=== PATIENT | female | born 1940 | race Caucasian/White ===

== ENCOUNTER 2017-05-07 10:06 | Emergency (ER) | payer MEDICARE, OTHER ==
--- NOTE | 2017-05-07 10:41 | ER Document Report ---
ED Fall - General Chief Complaint: Fall Injury Stated Complaint: FALL,LEFT HIP PAIN Time Seen by Provider: 05/07/17 10:21 Mode of Arrival: Wheelchair Information source: Patient, Relative Notes: 77-year-old female presents to ED for complaint of left hip and leg pain. She states she fell on April 23, 2017 when she was attempting to get into the car she said she was in [place] and has been ambulated for 9 days since she came home is just having a very difficult time walking. Her daughter is a [employer]ULATORY [employer]IST here and she states when she came home from out of town the mother was holding onto everything to try to walk because of the pain. TRAVEL OUTSIDE OF THE [place] IN LAST 30 DAYS: No - HPI Occurred: Other - April 23, 2017 Where: Outdoors Context: Tripped Associated symptoms: None Location of injury/pain: Lower extremity Quality of pain: Sharp Severity: Moderate Pain Level: 2 - Related data Allergies/Adverse Reactions: No Known Allergies Allergy (Verified 05/07/17 10:07) Past Medical History - General Information source: Patient - Social History Smoking Status: Former Smoker Cigarette use (# per day): No Chew tobacco use (# tins/day): No Smoking Education Provided: No Frequency of alcohol use: None Drug Abuse: None Occupation: Retired Lives with: Alone Family History: Reviewed & Not Pertinent Patient has suicidal ideation: No Patient has homicidal ideation: No - Past Medical History Cardiac Medical History: Reports: Hx Congestive Heart Failure, Hx Hypercholesterolemia, Hx Hypertension, Other - Defibrillator ejection fraction of 17 Pulmonary Medical History: Reports: None EENT Medical History: Reports: Other - 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 Neurological Medical History: Reports: Hx Cerebrovascular Accident - Left eye Endocrine Medical History: Reports: Hx Diabetes Mellitus Type 1 Renal/ Medical History: Reports: None Malignancy Medical History: Reports: Hx Breast Cancer GI Medical History: Reports: None Musculoskeltal Medical History: Reports Hx Gout, Reports Other - Osteoporosis Skin Medical History: Reports None Psychiatric Medical History: Reports: Hx Depression Traumatic Medical History: Reports: None Infectious Medical History: Reports: None Past Surgical History: Reports: Hx Breast Surgery - Mastectomy, Hx Tubal Ligation - Immunizations Hx Pneumococcal Vaccination: 04/04/13 Review of Systems - Review of Systems Constitutional: No symptoms reported EENT: No symptoms reported Cardiovascular: No symptoms reported Respiratory: No symptoms reported Gastrointestinal: No symptoms reported Genitourinary: No symptoms reported Female Genitourinary: No symptoms reported Musculoskeletal: Other - Left hip and thigh Skin: No symptoms reported Hematologic/Lymphatic: No symptoms reported Neurological/Psychological: No symptoms reported -: Yes All other systems reviewed and negative Physical Exam - Vital signs Vitals: Temp Pulse Resp BP Pulse Ox 97.5 F 74 18 95/70 L 100 05/07/17 10:14 05/07/17 10:14 05/07/17 10:14 05/07/17 10:14 05/07/17 10:14 Interpretation: Normal - General General appearance: Appears well, Alert - HEENT Head: Normocephalic, Atraumatic Eyes: Normal Pupils: PERRL - Respiratory Respiratory status: No respiratory distress Chest status: Nontender Breath sounds: Normal Chest palpation: Normal - Cardiovascular Rhythm: Regular Heart sounds: Normal auscultation Murmur: No - Abdominal Inspection: Normal Distension: No distension Bowel sounds: Normal Tenderness: Nontender Organomegaly: No organomegaly - Back Back: Normal, Nontender - Extremities General upper extremity: Normal inspection, Nontender, Normal color, Normal ROM , Normal temperature General lower extremity: Normal inspection, Normal temperature. No: Jessie's sign Hip: Tender, Ecchymosis, Pain with ROM, Unable to bear weight. No: Abrasion, Deformity, Dislocation, Instability, Laceration - Neurological Neuro grossly intact: Yes Cognition: Normal Orientation: AAOx4 [place] Coma Scale Eye Opening: Spontaneous Mechelle Coma Scale Verbal: Oriented Mechelle Coma Scale Motor: Obeys Commands Dundas Coma Scale Total: 15 Speech: Normal Motor strength normal: LUE, RUE, LLE, RLE Sensory: Normal - Psychological Associated symptoms: Normal affect, Normal mood - Skin Skin Temperature: Warm Skin Moisture: Dry Skin Color: Normal Course - Vital Signs Vital signs: Temp Pulse Resp BP Pulse Ox 97.5 F 97 16 130/78 H 72 L 05/07/17 10:14 05/07/17 13:06 05/07/17 13:06 05/07/17 13:06 05/07/17 13:06 Discharge - Discharge Clinical Impression: 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 X-ray shows a metastatic lesion to the left mid third femoral diaphysis . You have been given pain medicine and nausea medicine prescriptions Zofran and Percocet. You are to go straight to Dr. Jay's office from the emergency room Prescriptions: Oxycodone HCl/Acetaminophen [Percocet 5-325 mg Tablet] 1 tab PO Q6HP PRN #25 tablet PRN Reason: Ondansetron [Zofran Odt 4 mg Tablet] 1 tab PO Q6H #15 tab.rapdis Referrals: HUNTER PIKE PA [Primary Care Provider] - Follow up as needed VERA ABERNATHY MD [ACTIVE STAFF] - Follow up as needed HERMES JAY MD [ACTIVE STAFF] - 05/07/17
--- NOTE | 2017-05-07 11:43 | RADIOLOGY REPORT (SQ) ---
EXAM DESCRIPTION: HIP LEFT AP/LATERAL COMPLETED DATE/TIME: 05/07/2017 11:16 am REASON FOR STUDY: fall/pain COMPARISON: None. NUMBER OF VIEWS: Two views. TECHNIQUE: AP pelvis and additional frog-leg view of the left hip. LIMITATIONS: None. FINDINGS: MINERALIZATION: Normal. LEFT HIP: No fracture or dislocation. There is a lytic process involving the mid left femoral diaphy sis suspicious for metastatic disease or a primary bone neoplasm. RIGHT HIP: No fracture or dislocation. No worrisome bone lesions. PUBIS AND ISCHIUM: No fracture. PELVIS: No fracture. SACRUM: No fracture or dislocation. No worrisome bone lesions. LOWER LUMBAR SPINE: No fracture or dislocation. No worrisome bone lesions. No significant disc disea se. SOFT TISSUES: Extensive vascular calcifications are identified. OTHER: No other significant finding. IMPRESSION: No acute fracture or dislocation. Lytic process involving the mid left femoral diaphysi s as noted above suspicious for metastatic disease or primary bone neoplasm. Other findings as noted above TECHNICAL DOCUMENTATION: JOB ID: [id number] [employer]- All Rights Reserved
[2017-05-07] MEDS ORDERED: ONDANSETRON 4 MG TAB.RAPDIS PO ONE (12:44)
[2017-05-07] MEDS ORDERED: OXYCODONE-ACETAMINOPHEN 5-325 MG TABLET PO ONE (12:44)
--- NOTE | 2017-05-07 12:51 | RADIOLOGY REPORT (SQ) ---
EXAM DESCRIPTION: CT LT LOWER EXTREMITY WITHOUT COMPLETED DATE/TIME: 05/07/2017 12:29 pm REASON FOR STUDY: pain and possible metastic breast ca COMPARISON: None. TECHNIQUE: CT scan of the left femur performed without intravenous or oral contrast. Images reviewe d with soft tissue and bone windows. Reconstructed coronal and sagittal MPR images reviewed. All im ages stored on PACS. All CT scanners at this facility use dose modulation, iterative reconstruction, and/or weight based d osing when appropriate to reduce radiation dose to as low as reasonably achievable (ALARA). [facility]: Dose Right [facility]: CareDose [facility]: Dose Right [facility]: Teradose 4D [facility]: Smart Sound[employer]ie RADIATION DOSE: CT Rad equipment meets quality standard of care and radiation dose reduction techniq ues were employed. CTDIvol: 4.1 mGy. DLP: 185 mGy-cm. mGy. LIMITATIONS: None. FINDINGS: CT imaging of the left femur was performed without IV or oral contrast. In the mid left femoral diaphysis, a metastatic lesion is present measuring 3.3 x 2.5 cm in size. Th is has eroded through the medial and dorsal cortex of the femur, with complete cortical breakthrough posteriorly. This is best shown on axial images 99 through 129, sagittal image 59, coronal image 33 through 37. No fracture. However, this puts the patient at significant risk for pathologic fracture . Given history of breast cancer this most likely represents a metastatic lesion. This correlates w ith the findings on plain film earlier today. Remainder of the study demonstrates no gross metastatic disease involving the left hemipelvis. Femal e pelvic soft tissues are normal. Bladder unremarkable. Small fat containing left femoral hernia. Heavy atherosclerotic arterial vascular calcification of the left common femoral and left superficial femoral arteries. IMPRESSION: Medullary space metastatic lesion left mid 3rd femoral diaphysis. There is significant bony destruction at this level and the patient is at risk for pathologic fracture. TECHNICAL DOCUMENTATION: JOB ID: [id number] Quality ID # [id number]: Final reports with documentation of one or more dose reduction techniques (e.g., Au tomated exposure control, adjustment of the mA and/or kV according to patient size, use of iterative reconstruction technique) 2010 [employer]- All Rights Reserved
[2017-05-07 13:15] VITALS: BP 130/78
== END 2017-05-07 13:15 | disposition home or self-care (01) ==
LOC: ER 10:06
DX: C50.919 Malignant neoplasm of unspecified site of unspecified female breast (principal); C79.51 Secondary malignant neoplasm of bone; M25.552 Pain in left hip; M79.605 Pain in left leg; W19.XXXA Unspecified fall, initial encounter; Z87.891 Personal history of nicotine dependence
CPT/HCPCS: 99284; 73502; 73700; A9270 ×2; S0119

== ENCOUNTER → 2017-05-11 | Outpatient (CLI) | payer MEDICARE, OTHER ==
--- NOTE | 2017-05-12 17:56 | RADIOLOGY REPORT (SQ) ---
EXAM DESCRIPTION: PET CT SKULL/THIGH COMPLETED DATE/TIME: 05/12/2017 9:28 am REASON FOR STUDY: BREAST CANCER C50.411 MALIG NEOPLM OF UPPER-OUTER QUADRANT OF RIGHT FEMALE COMPARISON: CT chest 01/04/2014 RADIONUCLIDE AND DOSE: 12.5 mCi F18 FDG The route of agent administration: Intravenous FASTING BLOOD SUGAR: 100 mg/dl CONTRAST TYPE AND DOSE: No CT contrast given. TECHNIQUE: Blood glucose level was verified. Above dose of FDG was injected intravenously. 2-D seg mented attenuation correction images were obtained from the base of the skull to the midthighs. Nonc ontrast CT images were obtained for attenuation correction and fusion with emission images. CT image s were performed without oral or intravenous contrast and are not sensitive for parenchymal lesions. A series of overlapping emission PET images were obtained. Images reviewed and manipulated at [facility] work station by the radiologist. Images stored on PACS. LIMITATIONS: None. FINDINGS: HEAD AND NECK: No areas of abnormal metabolic activity in the soft tissues of the head and neck. CHEST: There is minimal airspace disease in the right lung apex best shown on axial images 53 through 58. This has activity of 1.5 SUV. Pneumonia versus pneumonitis. Lungs and pleura are otherwise unremarkable. Old right mastectomy. ABDOMEN AND PELVIS: No areas of abnormal metabolic activity in the abdomen or pelvis. Expected physi ologic activity is present in the genitourinary system and bowel. PROXIMAL LOWER EXTREMITIES: In the mid 3rd left femur, a lytic lesion worrisome for metastatic diseas e is present with SUV of 5.3 BONES: As above. No other bony lesions ADDITIONAL CT FINDINGS: Extensive atherosclerotic arterial vascular calcification. Calcified aortic valve. Heavy coronary artery calcification. Pacemaker left chest. Old right mastectomy. OTHER: Liver SUV 2.3. Blood pool SUV 1.7 IMPRESSION: Metabolically active left mid 3rd femur lesion worrisome for metastatic deposits Minimal airspace disease right upper lobe, pneumonia versus pneumonitis Old right mastectomy TECHNICAL DOCUMENTATION: JOB ID: [id number]- All Rights Reserved
== END ==
LOC: RAD 17:24
PROVIDERS: ATTEND Internal Medicine
DX: C50.411 Malignant neoplasm of upper-outer quadrant of right female breast (principal); Z90.11 Acquired absence of right breast and nipple
CPT/HCPCS: 78815; A9552

== ENCOUNTER 2017-05-21 09:55 | Inpatient (IN) | payer MEDICARE, OTHER ==
--- NOTE | 2017-05-20 09:50 | EKG REPORT ---
SEVERITY:- ABNORMAL ECG - SINUS RHYTHM LVH WITH SECONDARY REPOLARIZATION ABNORMALITY CONSIDER ANTERIOR INFARCT : Confirmed by: Ray Jansen 20-May-2017 09:49:46
[2017-05-20 10:32] LABS: ABSOLUTE BASOPHILS # (AUTO) 0.1 10^3/uL (0.0-0.2); ABSOLUTE EOSINOPHILS # (AUTO) 0.4 10^3/uL (0.0-0.6); ABSOLUTE LYMPHOCYTES (AUTO) 1.7 10^3/uL (0.5-4.7); ABSOLUTE MONOCYTES (AUTO) 0.6 10^3/uL (0.1-1.4); ABSOLUTE NEUT (AUTO) 2.5 10^3/uL (1.7-8.2); BASOPHILS % (AUTO) 1.1 % (0-2); EOSINOPHILS % (AUTO) 7.6 % (0-6); HEMOGLOBIN 12.2 g/dL (12.0-15.5); LYMPHOCYTES % (AUTO) 32.7 % (13-45); MEAN CORPUSCULAR HEMOGLOBIN 31.7 pg (27.0-33.4); MEAN CORPUSCULAR HGB CONC 33.8 g/dL (32.0-36.0); MEAN CORPUSCULAR VOLUME 94 fl (80-97); MONOCYTES % (AUTO) 11.8 % (3-13); PLATELET COUNT 251 10^3/uL (150-450); RED BLOOD COUNT 3.84 10^6/uL (3.72-5.28); RED CELL DISTRIBUTION WIDTH 13.4 % (11.5-14.0); SEGMENTED NEUTROPHILS % (AUTO) 46.8 % (42-78); TOTAL CELLS COUNTED % (AUTO) 100 %; WHITE BLOOD COUNT 5.3 10^3/uL (4.0-10.5)
[2017-05-20 10:34] LABS: APPEARANCE,URINE SLIGHTLY-CLOUDY; BILIRUBIN,URINE NEGATIVE (NEGATIVE); COLOR,URINE YELLOW; GLUCOSE, URINE NEGATIVE (NEGATIVE); KETONES,URINE NEGATIVE (NEGATIVE); LEUKOCYTE ESTERASE,URINE NEGATIVE (NEGATIVE); NITRITE,URINE NEGATIVE (NEGATIVE); PROTEIN,URINE NEGATIVE (NEGATIVE); URINE SPECIFIC GRAVITY 1.006; UROBILINOGEN,URINE NEGATIVE mg/dL (<2.0)
[2017-05-20 10:56] LABS: ANION GAP 15 (5-19); BLOOD UREA NITROGEN 69 mg/dL (7-20); CALCIUM 11.6 mg/dL (8.4-10.2); CARBON DIOXIDE 26 mmol/L (22-30); CHLORIDE 91 mmol/L (98-107); GLUCOSE 84 mg/dL (75-110); POTASSIUM 4.3 mmol/L (3.6-5.0); SODIUM 131.8 mmol/L (137-145)
--- NOTE | 2017-05-20 13:35 | RADIOLOGY REPORT (SQ) ---
EXAM DESCRIPTION: CHEST PA/LATERAL COMPLETED DATE/TIME: 05/20/2017 10:41 am REASON FOR STUDY: PRE OP COMPARISON: CT chest 01/04/2014 Chest films 01/01/2014 01/06/2014, 01/07/2014 PET-CT 05/11/2017 EXAM PARAMETERS: NUMBER OF VIEWS: two views TECHNIQUE: Digital Frontal and Lateral radiographic views of the chest acquired. RADIATION DOSE: NA LIMITATIONS: none FINDINGS: LUNGS AND PLEURA: Stable right apical pleural-parenchymal scarring compared to studies mau ing back to 2013. No acute infiltrates. No pleural effusion. No pneumothorax. MEDIASTINUM AND HILAR STRUCTURES: No masses or contour abnormalities. HEART AND VASCULAR STRUCTURES: Heart normal size. No evidence for failure. BONES: Osteoporotic. No thoracic compression deformity HARDWARE: Left-sided single lead pacemaker OTHER: Old right mastectomy IMPRESSION: No acute findings TECHNICAL DOCUMENTATION: JOB ID: [id number] [employer]- All Rights Reserved
[~2017-05-21 09:55] MED LIST: CEFAZOLIN 2 GM/D5W RTU 2 GM/50 ML RTUPB IV PRN; LACTATED RINGERS 1000 ML IV PRN; LIDOCAINE 0.5% INJ-PF (5 MG/ML) 50 ML SDV SUBCUT PRN
[2017-05-21] MEDS ORDERED: FENTANYL CITRATE INJ/PF 100 MCG/2 ML AMPUL ONE (12:59)
[2017-05-21] MEDS ORDERED: MIDAZOLAM 2 MG/2 ML INJ ONE (12:59)
[2017-05-21] MEDS ORDERED: PROPOFOL INJ 200 MG/20 ML VIAL IV ONE (13:00)
[2017-05-21] MEDS ORDERED: MORPHINE SULFATE 10 MG/ML INJ IV PRN (13:20)
[2017-05-21] MEDS ORDERED: MEPERIDINE HCL/PF INJ 25 MG/1 ML DISP.SYRIN IV PRN (13:20)
[2017-05-21] MEDS ORDERED: DIPHENHYDRAMINE HCL 50 MG/ML VIAL IV PRN (13:20)
[2017-05-21] MEDS ORDERED: OXYCODONE-ACETAMINOPHEN 5-325 MG TABLET PO PRN ×2 (13:20)
[2017-05-21] MEDS ORDERED: FENTANYL CITRATE INJ/PF 100 MCG/2 ML AMPUL IV PRN ×3 (13:20)
[2017-05-21] MEDS ORDERED: PROMETHAZINE HCL INJ 25 MG/1 ML VIAL IV PRN ×2 (13:20)
[2017-05-21] MEDS ORDERED: BUPIVACAINE HCL 0.5%-EPI 1:200000 INJ/PF 30 ML VIAL ONE (13:32)
--- NOTE | 2017-05-21 14:04 | Operative Report ---
Operative Report DATE OF SURGERY: 05/21/17 PREOPERATIVE DIAGNOSIS: Impending fracture left femur OPERATION: Open biopsy left diaphyseal femur lesion. Prophylactic internal fixation left femur SURGEON: VERA ABERNATHY ANESTHESIA: GA TISSUE REMOVED OR ALTERED: Left diaphyseal femoral lesion to pathology ESTIMATED BLOOD LOSS: 100 PROCEDURE: With the patient supine on the fracture table left lower extremities prepped and draped in sterile fashion. A pin was placed percutaneously into the greater trochanter and down into the proximal femoral metadiaphysis. A combined reamers used to fashion a cortical opening. Next a ball-tipped guide skylar was placed down the femur and femoral length are determined to be 380 mm. At this point using fluoroscopic guidance a lateral incision was made over the femoral diaphysis and blunt dissection was used to clear the soft tissue lateral to the diaphysis. A rondure is then used to biopsy the femoral diaphyseal lesion. A [employer] gamma 3 nail 11 x 380 mm x 130 is then advanced over the ball-tipped guide skylar to an appropriate depth for proximal interlock. A 90 mm proximal interlock is placed. Next freehand under fluoroscopic guidance a 52.5 mm distal interlock is placed. All instrumentation was removed. The wounds irrigated with bulb lavage. The closed using Vicryl followed by chris. Sterile compressive dressings are applied and the patient returned to PACU in satisfactory condition.
[2017-05-21] MEDS ORDERED: OXYCODONE HCL SR 10 MG TABLET PO PRN (14:15)
[2017-05-21] MEDS ORDERED: ONDANSETRON 4 MG TAB.RAPDIS PO SCH ×2 (14:15→18:00)
[2017-05-21] MEDS ORDERED: NITROGLYCERIN 0.4 MG/TAB 25 TAB/BOTTLE SL PRN ×2 (14:15→15:07)
[2017-05-21] MEDS ORDERED: TEMAZEPAM 15 MG CAPSULE PO PRN (14:15)
[2017-05-21] MEDS: FENTANYL CITRATE INJ/PF 100 MCG/2 ML AMPUL ONE ×2 (14:35→14:40)
--- NOTE | 2017-05-21 14:37 | RADIOLOGY REPORT (SQ) ---
EXAM DESCRIPTION: FEMUR LEFT; NO CHG FLUORO COMPLETED DATE/TIME: 05/21/2017 2:25 pm REASON FOR STUDY: IM NAILING LT HIP/FEMUR ASST WITH FLUORO IN OR C79.51 SECONDARY MALIGNANT NEOPLA SM OF BONE COMPARISON: Left hip films 05/07/2017 FLUOROSCOPY TIME: 1.4 minutes 5 digital C-arm images saved to PACS. TECHNIQUE: Intra-operative images acquired during surgical procedure to evaluate progress. NUMBER OF IMAGES: 5 digital C-arm images LIMITATIONS: None. FINDINGS: Intra procedural imaging and fluoro during placement of an intramedullary nail left femur, across a mid diaphysis lytic lesion. Please state the operative report for further details IMPRESSION: Intra procedural imaging and fluoro COMMENT: Quality ID [id number]: Final reports for procedures using fluoroscopy that document radiation exp osure indices, or exposure time and number of fluorographic images (if radiation exposure indices are not available) Please consult full operative report of the attending physician for description of the procedure. TECHNICAL DOCUMENTATION: JOB ID: [id number] [employer]- All Rights Reserved
[2017-05-21] MEDS ORDERED: ACETAMINOPHEN 100 ML IV ONE (14:43)
[2017-05-21] MEDS ORDERED: ETOMIDATE INJ/PF 20 MG/10 ML SDV IV ONE (14:44)
[2017-05-21] MEDS ORDERED: KETOROLAC TROMETHAMINE 60 MG/2 ML SDV ONE (14:44)
[2017-05-21] MEDS ORDERED: METOCLOPRAMIDE HCL INJ/PF 10 MG/2 ML SDV ONE (14:44)
[2017-05-21] MEDS ORDERED: ONDANSETRON HCL INJ/PF 4 MG/2 ML SDV ONE (14:44)
[2017-05-21] MEDS ORDERED: LIDOCAINE 2% INJ-PF (20 MG/ML) 2 ML AMPUL ONE (14:44)
[2017-05-21] MEDS ORDERED: DEXAMETHASONE SOD PHOSPHATE INJ 4 MG/1 ML VIAL ONE (14:44)
[2017-05-21] MEDS ORDERED: RINGERS SOLUTION,LACTATED 1,000 ML IV PRN (14:53)
[2017-05-21] MEDS ORDERED: MORPHINE SULFATE 10 MG/ML INJ ONE (15:25)
[2017-05-21] MEDS ORDERED: OXYCODONE HCL IR 5 MG TABLET PO PRN (15:41)
[2017-05-21] MEDS ORDERED: ASPIRIN 81 MG TABLET, ENT COATED PO ONE (16:00)
[2017-05-21] MEDS ORDERED: INFLUENZA ADLT QUAD (36MOS+) 2017-18 VAC 0.5 ML SYR IM PRN (16:45)
[2017-05-21] MEDS: ANASTROZOLE 1 MG TABLET PO SCH (17:58)
[2017-05-21] MEDS: MORPHINE SULFATE 10 MG/ML INJ IV PRN ×2 (21:25→23:30)
[2017-05-21] MEDS: CEFAZOLIN 2 GM/D5W RTU 2 GM/50 ML RTUPB IV SCH (21:26)
[2017-05-21] MEDS: ONDANSETRON 4 MG TAB.RAPDIS PO PRN (21:26)
[2017-05-21] MEDS: ATORVASTATIN CALCIUM 10 MG TABLET PO SCH (21:26)
[2017-05-22] MEDS: MORPHINE SULFATE 10 MG/ML INJ IV PRN ×3 (03:25→15:02)
[2017-05-22] MEDS: CEFAZOLIN 2 GM/D5W RTU 2 GM/50 ML RTUPB IV SCH (05:34)
[2017-05-22 06:54] LABS: HEMATOCRIT 27.9 % (36.0-47.0); MEAN CORPUSCULAR HEMOGLOBIN 31.8 pg (27.0-33.4); MEAN CORPUSCULAR HGB CONC 33.8 g/dL (32.0-36.0); MEAN CORPUSCULAR VOLUME 94 fl (80-97); PLATELET COUNT 187 10^3/uL (150-450); RED BLOOD COUNT 2.97 10^6/uL (3.72-5.28); RED CELL DISTRIBUTION WIDTH 13.3 % (11.5-14.0); WHITE BLOOD COUNT 4.5 10^3/uL (4.0-10.5)
[2017-05-22 06:57] LABS: HEMOGLOBIN 9.4 g/dL (12.0-15.5)
[2017-05-22 07:05] LABS: ANION GAP 10 (5-19); BLOOD UREA NITROGEN 53 mg/dL (7-20); CALCIUM 9.7 mg/dL (8.4-10.2); CARBON DIOXIDE 23 mmol/L (22-30); CHLORIDE 102 mmol/L (98-107); GLUCOSE 91 mg/dL (75-110); POTASSIUM 4.6 mmol/L (3.6-5.0); SODIUM 135.4 mmol/L (137-145)
[2017-05-22] MEDS ORDERED: COLCHICINE 0.6 MG TABLET PO SCH (10:00)
[2017-05-22] MEDS ORDERED: MULTIVITAMIN TABLET PO SCH (10:00)
[2017-05-22] MEDS ORDERED: (PENDING PHARMACY ID) (Rosuvastatin Calcium [Crestor 5 Mg Tablet] 5 MG) PO SCH (10:00)
[2017-05-22] MEDS ORDERED: METOPROLOL SUCCINATE 25 MG TAB.SR.24H PO SCH (10:00)
[2017-05-22] MEDS ORDERED: (PENDING PHARMACY ID) (Calcium Carbonate/Vitamin D3 [Calcium 600-Vit D3 200 Tablet] 1 TAB) PO SCH (10:00)
[2017-05-22] MEDS: FUROSEMIDE 40 MG TABLET PO SCH (10:15)
[2017-05-22] MEDS: COLCHICINE 0.6 MG TABLET PO SCH (10:16)
[2017-05-22] MEDS: MULTIVITAMIN TABLET PO SCH (10:16)
[2017-05-22] MEDS: SPIRONOLACTONE 25 MG TABLET PO SCH (10:17)
[2017-05-22] MEDS: ASPIRIN 81 MG TABLET, ENT COATED PO SCH (10:17)
[2017-05-22] MEDS: CALCIUM CARBONATE 250 MG/VITAMIN D3 125 UNIT TABLET PO SCH (10:17)
[2017-05-22] MEDS: OXYCODONE HCL IR 5 MG TABLET PO PRN ×2 (11:06→23:10)
[2017-05-22] MEDS: ONDANSETRON 4 MG TAB.RAPDIS PO PRN (11:11)
--- NOTE | 2017-05-22 12:05 | PDOC PROGRESS REPORT ---
Subjective Progress Note for:: 05/22/17 Subjective:: 77 year old white female 1 day s/p biopsy of lesion on the left femur as well as prophylactic ORIF of left femur. Patient lying in hospital bed this morning. Patient reports she is pain constantly since surgery, particularly when she transfers to bed side commode. Patient was reassured she has analgesic medication she can request to be given when she fells necessary. Reason For Visit: ORIF L FEMUR Physical Exam Vital Signs: Temp Pulse Resp BP Pulse Ox 37.0 C 81 20 118/53 L 100 05/22/17 07:52 05/22/17 07:52 05/22/17 07:52 05/22/17 07:52 05/22/17 07:52 Intake & Output 05/21/17 05/22/17 05/23/17 06:59 06:59 06:59 Intake Total 3368 Output Total 800 Balance 2568 Weight 53.52 kg 53.52 kg General appearance: PRESENT: no acute distress, well-developed, well-nourished Head exam: PRESENT: atraumatic, normocephalic Respiratory exam: PRESENT: unlabored Pulses: PRESENT: normal dorsalis pedis pul, +2 pedal pulses bilateral Vascular exam: PRESENT: normal capillary refill Additional comments: Patient lying recumbant in hospital bed this morning with bilateral lower extremities in full extension. Patients post op-site dressing are clean dry and in tact and these are left in place. Patient notes she is in pain along her femoral shaft and cannot get pain reflief post operatively. She has minimal pedal edema and brisk capillary refill to toes on left lower extremities. Her sensory and motor functions are intact and her distal neurovascular exam is in tact. Additional comments: Patient has not yet worked with physical therapy post operatively as her anesthesia had not completely worn off during her therapy seesion yesterday. Patient will continue to work with PT post operatively to improve strength and range of motion of left lower extremity and work towards independent ambulation. Neurological exam: PRESENT: alert, awake, oriented to person, oriented to place , oriented to time, oriented to situation, CN II-XII grossly intact. ABSENT: motor sensory deficit Psychiatric exam: PRESENT: appropriate affect, normal mood. ABSENT: homicidal ideation, suicidal ideation Skin exam: PRESENT: dry, intact, warm. ABSENT: cyanosis, rash Results Laboratory Results: 05/22/17 05:47 05/22/17 05:47 05/22/17 05/22/17 05:47 05:47 WBC 4.5 RBC 2.97 L Hgb 9.4 L D Hct 27.9 L MCV 94 MCH 31.8 MCHC 33.8 RDW 13.3 Plt Count 187 Sodium 135.4 L Potassium 4.6 Chloride 102 Carbon Dioxide 23 Anion Gap 10 BUN 53 H Creatinine 1.36 H Est GFR ( Amer) 46 L Est GFR (Non-Af Amer) 38 L Glucose 91 Calcium 9.7 Impressions: Chest X-Ray 05/20/17 10:24 IMPRESSION: No acute findings Femur X-Ray 05/21/17 00:00 IMPRESSION: Intra procedural imaging and fluoro Fluoroscopy 05/21/17 00:00 IMPRESSION: Intra procedural imaging and fluoro Assessment & Plan - Diagnosis (1) Breast cancer Is this a current diagnosis for this admission?: Yes (2) Pathological fracture of left femur Qualifiers: Pathology associated with fracture: neoplastic disease Encounter type: subsequent encounter Is this a current diagnosis for this admission?: Yes - Plan Summary Plan Summary: 77 year old white female previously diagnosed with breast cancer, 1 day s/p biopsy of left femur fracture and prophylactic ORIF of left femur. Patient has not yet worked with physical therapy post operatively due to lasting effects of anesthesia on post op day 0. She will work with PT today to improve strength and ROM of left lower extremity and independent ambulation. Patient has had issues with pain control since surgery. She was reassured that she has IV pain medication she can ask for every 2 hours and in attempt to alleviate her pain, her oxycodone 5mg was increased to 10mg. Pending progress with PT, we will then determine a plan for discharge. Pathologic fracture of left femur: biopsy results have not yet been analyzed. We will determine further treatment for possible metastasis of breast cancer once results are obtained. Breast cancer: continue treatment per oncologist recommendations.
[2017-05-22] MEDS: ATORVASTATIN CALCIUM 10 MG TABLET PO SCH (23:09)
[2017-05-22] MEDS: ANASTROZOLE 1 MG TABLET PO SCH (23:09)
--- NOTE | 2017-05-23 06:48 | PDOC PROGRESS REPORT ---
Subjective Progress Note for:: 05/23/17 Subjective:: Patient complains of left lower extremity pain Reason For Visit: ORIF L FEMUR 77-year-old white female status post biopsy and subsequent open reduction internal fixation of an impending left femur fracture secondary to breast carcinoma Physical Exam Vital Signs: Temp Pulse Resp BP Pulse Ox 37.2 C 97 17 110/59 L 93 05/23/17 03:34 05/23/17 03:34 05/23/17 03:34 05/23/17 03:34 05/23/17 03:34 Intake & Output 05/21/17 05/22/17 05/23/17 06:59 06:59 06:59 Intake Total 3368 3060 Output Total 800 2325 Balance 2568 735 Weight 53.52 kg 53.52 kg General appearance: PRESENT: mild distress Head exam: PRESENT: normocephalic Respiratory exam: PRESENT: unlabored Cardiovascular exam: PRESENT: RRR Pulses: PRESENT: +1 pedal pulses bilateral Vascular exam: PRESENT: normal capillary refill GI/Abdominal exam: PRESENT: soft Rectal exam: PRESENT: deferred Extremities exam: PRESENT: other - Left lower extremity dressings clean dry and intact Neurological exam: PRESENT: alert, awake, oriented to person, oriented to place , oriented to time, oriented to situation. ABSENT: motor sensory deficit Psychiatric exam: PRESENT: appropriate affect, normal mood. ABSENT: homicidal ideation, suicidal ideation Skin exam: PRESENT: dry, intact, warm. ABSENT: cyanosis, rash Results Laboratory Results: 05/22/17 05:47 05/22/17 05:47 05/22/17 05/22/17 05:47 05:47 WBC 4.5 RBC 2.97 L Hgb 9.4 L D Hct 27.9 L MCV 94 MCH 31.8 MCHC 33.8 RDW 13.3 Plt Count 187 Sodium 135.4 L Potassium 4.6 Chloride 102 Carbon Dioxide 23 Anion Gap 10 BUN 53 H Creatinine 1.36 H Est GFR ( Amer) 46 L Est GFR (Non-Af Amer) 38 L Glucose 91 Calcium 9.7 Impressions: Chest X-Ray 05/20/17 10:24 IMPRESSION: No acute findings Femur X-Ray 05/21/17 00:00 IMPRESSION: Intra procedural imaging and fluoro Fluoroscopy 05/21/17 00:00 IMPRESSION: Intra procedural imaging and fluoro Status: Imported from PACS Assessment & Plan - Diagnosis (1) Breast cancer Is this a current diagnosis for this admission?: Yes Plan: Biopsy specimen path report pending. We will consult medical oncology for future management. (2) Pathological fracture of left femur Qualifiers: Pathology associated with fracture: neoplastic disease Encounter type: subsequent encounter Is this a current diagnosis for this admission?: Yes Plan: Patient remember localized with physical therapy and weightbearing as tolerated basis. Anticipate longterm facility placement. - Time Time Spent with patient: 15-24 minutes Anticipated discharge: SNF Within: Other
[2017-05-23] MEDS: OXYCODONE HCL IR 5 MG TABLET PO PRN ×2 (08:10→23:53)
[2017-05-23] MEDS: FUROSEMIDE 40 MG TABLET PO SCH (08:10)
--- NOTE | 2017-05-23 09:04 | PDOC CONSULTATION ---
Consultation Consult Date: 05/23/17 Attending physician:: VERA ABERNATHY Consult reason:: Stage IV breast ca w/ L femur involvement s/p preventative fixation History of Present Illness Admission Date/PCP: [facility] RATLIFF Patient complains of: L femur pain, stage IV breast ca History of Present Illness: ROXANE RYAN is a 77 year old female with known history of stage III breast cancer treated now about 3 years ago, unfortunately post adjuvant therapy which involved using Adriamycin/Cytoxan followed by Taxol in a standard fashion, she did have heart failure. That has actually been improved, recently she presented to the ED with severe left leg pain, she had an x-ray which indicated a lytic area in the left upper femur, this is followed by CT imaging which did show a mixed lytic and blastic lesion there, we follow that up with a PET/CT which showed uptake in that area but no other areas. Because she had severe pain in that area, we decided on sending her to orthopedic oncology for prophylactic internal fixation because about 70% of the cortex was taken up by this tumor and there was a high risk for fracture. He also felt that this may improve pain control. He did the surgery yesterday. Today she is having a lot of pain. Previously she was taking oxycodone approximately 10-15 mg per day, and that was adequately controlling the pain before. Now she is having a lot of pain on any movement of that leg. Of note we are awaiting pathology from the surgery as well. I expect it to be stage IV breast cancer confirmed, hopefully ER positive. Past Medical History Cardiac Medical History: Reports: Congestive Heart Failure, Coronary Artery Disease, Hyperlipidema, Hypertension Denies: Myocardial Infarction Pulmonary Medical History: Reports: Pneumonia - A CHILD Denies: Asthma, Bronchitis, Chronic Obstructive Pulmonary Disease (COPD) Neurological Medical History: Denies: Seizures Endocrine Medical History: Reports: Diabetes Mellitus Type 1 Malignancy Medical History: Reports: Breast Cancer Musculoskeltal Medical History: Reports: Gout Denies: Arthritis Psychiatric Medical History: Reports: Depression Hematology: Denies: Anemia Past Surgical History Past Surgical History: Reports: Mastectomy - right side, Tubal Ligation Social History Information Source: Patient Smoking Status: Current Every Day Smoker Frequency of Alcohol Use: Rare Hx Recreational Drug Use: No - Advance Directive Resuscitation Status: Full Code Family History Family History: Reviewed & Not Pertinent Parental Family History Reviewed: Yes Children Family History Reviewed: Yes Sibling(s) Family History Reviewed.: Yes Medication/Allergy Home Medications: Calcium Carbonate/Vitamin D3 [Calcium 600-Vit D3 200 Tablet] 1 tab PO DAILY Furosemide [Lasix 40 mg Tablet] 40 mg PO QAM 12/31/13 Multivitamin [Multi-Vitamin Daily] 1 tab PO DAILY 12/31/13 Anastrozole [Arimidex 1 mg Tablet] 1 mg PO QHS #30 tablet 01/07/14 Metoprolol Succinate 25 mg PO DAILY #30 tab.sr.24h 01/07/14 Spironolactone [Aldactone 25 mg Tablet] 25 mg PO DAILY #30 tablet 01/07/14 Aspirin [Aspirin EC] 81 mg PO DAILY 05/20/17 Colchicine [Colcrys 0.6 mg Tablet] 1 tab PO DAILY 05/20/17 Nitroglycerin 0.4 mg SL PRN PRN 05/20/17 Ondansetron [Zofran Odt 4 mg Tablet] 1 tab PO Q6HP PRN 05/20/17 Temazepam [Restoril 15 mg Capsule] 15 mg PO HSP PRN 05/20/17 Docusate Sodium [Colace 100 mg Capsule] 100 mg PO BID 05/21/17 Losartan Potassium [Cozaar 25 mg Tablet] 25 mg PO DAILY 05/21/17 [place]-3 Fatty Acids/Fish Oil [[place] 3 Fish Oil Softgel] 1 cap PO BID 05/21/17 Oxycodone HCl [Oxy-Ir 5 mg Tablet] 5 mg PO Q6HP PRN 05/21/17 Rosuvastatin Calcium [Crestor 10 mg Tablet] 10 mg PO DAILY 05/21/17 Allergies/Adverse Reactions: No Known Allergies Allergy (Verified 05/20/17 08:25) Review of Systems Constitutional: ABSENT: chills, fever(s), headache(s), weight gain, weight loss Eyes: ABSENT: visual disturbances Ears: ABSENT: hearing changes Cardiovascular: ABSENT: chest pain, dyspnea on exertion, edema, orthropnea, palpitations Respiratory: ABSENT: cough, hemoptysis Gastrointestinal: ABSENT: abdominal pain, constipation, diarrhea, hematemesis, hematochezia, nausea, vomiting Genitourinary: ABSENT: dysuria, hematuria Musculoskeletal: PRESENT: other - Left leg pain Integumentary: ABSENT: rash, wounds Neurological: ABSENT: abnormal gait, abnormal speech, confusion, dizziness, focal weakness, syncope Psychiatric: ABSENT: anxiety, depression, homidical ideation, suicidal ideation Endocrine: ABSENT: cold intolerance, heat intolerance, polydipsia, polyuria Hematologic/Lymphatic: ABSENT: easy bleeding, easy bruising Physical Exam Vital Signs: Temp Pulse Resp BP Pulse Ox 98.6 F 93 18 108/59 L 94 05/23/17 08:00 05/23/17 08:00 05/23/17 08:00 05/23/17 08:00 05/23/17 08:00 Intake & Output 05/22/17 05/23/17 05/24/17 06:59 06:59 06:59 Intake Total 3368 3060 Output Total 800 2325 Balance 2568 735 Weight 53.52 kg General appearance: PRESENT: no acute distress, well-developed, well-nourished Head exam: PRESENT: atraumatic, normocephalic Eye exam: PRESENT: conjunctiva pink, EOMI, PERRLA. ABSENT: scleral icterus Ear exam: PRESENT: normal external ear exam Mouth exam: PRESENT: moist, tongue midline Neck exam: ABSENT: carotid bruit, JVD, lymphadenopathy, thyromegaly Respiratory exam: PRESENT: clear to auscultation manny. ABSENT: rales, rhonchi, wheezes Cardiovascular exam: PRESENT: RRR. ABSENT: diastolic murmur, rubs, systolic murmur Pulses: PRESENT: normal dorsalis pedis pul Vascular exam: PRESENT: normal capillary refill GI/Abdominal exam: PRESENT: normal bowel sounds, soft. ABSENT: distended, guarding, mass, organolmegaly, rebound, tenderness Rectal exam: PRESENT: deferred Musculoskeletal exam: PRESENT: other - Left leg pain on palpation of any areas. Neurological exam: PRESENT: alert, awake, oriented to person, oriented to place , oriented to time, oriented to situation, CN II-XII grossly intact. ABSENT: motor sensory deficit Psychiatric exam: PRESENT: appropriate affect, normal mood. ABSENT: homicidal ideation, suicidal ideation Skin exam: PRESENT: dry, intact, warm. ABSENT: cyanosis, rash Results Laboratory Results: 05/22/17 05:47 05/22/17 05:47 Impressions: Chest X-Ray 05/20/17 10:24 IMPRESSION: No acute findings Femur X-Ray 05/21/17 00:00 IMPRESSION: Intra procedural imaging and fluoro Fluoroscopy 05/21/17 00:00 IMPRESSION: Intra procedural imaging and fluoro Assessment & Plan - Diagnosis (1) Pathological fracture of left femur Qualifiers: Pathology associated with fracture: neoplastic disease Encounter type: initial encounter Qualified Code(s): M84.552A - Pathological fracture in neoplastic disease, left femur, initial encounter for fracture Is this a current diagnosis for this admission?: Yes Plan: Patient has had surgery, fixation, hopefully will ultimately be ER positive disease, we will be able to have a lot more options that way. I believe she will ultimately be able to go home I hope, she does have a very involved daughter who is a SALES REPRESENTATIVE [employer], and she could receive regular home PT. And her daughter can actually do a lot of the things that PT is doing on the days that they would not come. But physical therapy has not evaluated her here so we will see what they say. (2) Breast cancer Qualifiers: Breast location: upper outer quadrant of breast Estrogen receptor status: positive Laterality: right Is this a current diagnosis for this admission?: Yes Plan: Stage IV breast cancer, most likely, awaiting pathology results, will discuss further when I have them back (3) Pain, neoplasm-related Is this a current diagnosis for this admission?: Yes Plan: Continue with oral oxycodone I will add low-dose fentanyl patch to her regimen. - Time Time Spent: Greater than 70 Minutes Anticipated discharge: Home Within: within 72 hours - Inpatient Certification Based on my medical assessment, after consideration of the patient's comorbidities, presenting symptoms, or acuity I expect that the services needed warrant INPATIENT care.: Yes I certify that my determination is in accordance with my understanding of Medicare's requirements for reasonable and necessary INPATIENT services [42 CFR 412.3e].: Yes Medical Necessity: Need for Pain Control, Need for Surgery, Risk of Complication if Not Cared For in Hospital
[2017-05-23] MEDS: SPIRONOLACTONE 25 MG TABLET PO SCH (09:31)
[2017-05-23] MEDS: MULTIVITAMIN TABLET PO SCH (09:31)
[2017-05-23] MEDS: CALCIUM CARBONATE 250 MG/VITAMIN D3 125 UNIT TABLET PO SCH (09:31)
[2017-05-23] MEDS: COLCHICINE 0.6 MG TABLET PO SCH (09:31)
[2017-05-23] MEDS: METOPROLOL SUCCINATE 25 MG TAB.SR.24H PO SCH (09:32)
[2017-05-23] MEDS: ASPIRIN 81 MG TABLET, ENT COATED PO SCH (09:32)
[2017-05-23] MEDS: FENTANYL 12 MCG/HR PATCH.TD72 TD SCH (09:38)
[2017-05-23] MEDS: ANASTROZOLE 1 MG TABLET PO SCH (22:15)
[2017-05-23] MEDS: ATORVASTATIN CALCIUM 10 MG TABLET PO SCH (22:15)
--- NOTE | 2017-05-24 08:01 | PDOC PROGRESS REPORT ---
Subjective Progress Note for:: 05/24/17 Subjective:: Patient lying in bed comfortably. Continues to have pain in her left leg especially with physical therapy. Denies chest pain or shortness of breath. Reason For Visit: ORIF L FEMUR Physical Exam Vital Signs: Temp Pulse Resp BP Pulse Ox 98.3 F 65 17 100/63 100 05/24/17 03:00 05/24/17 07:00 05/24/17 03:00 05/24/17 03:00 05/24/17 03:00 Intake & Output 05/23/17 05/24/17 05/25/17 06:59 06:59 06:59 Intake Total 3060 1135 Output Total 2325 1650 Balance 735 -515 Weight 59.8 kg Musculoskeletal exam: PRESENT: other - Left lower extremity: Dressings clean/dry /intact no erythema or drainage. Moderate thigh swelling. No calf tenderness. Negative Homans. Intact plantar flexion/dorsiflexion. No sensory deficits. No evidence of malrotation or limb length inequality. Results Laboratory Results: 05/22/17 05:47 05/22/17 05:47 Impressions: Chest X-Ray 05/20/17 10:24 IMPRESSION: No acute findings Femur X-Ray 05/21/17 00:00 IMPRESSION: Intra procedural imaging and fluoro Fluoroscopy 05/21/17 00:00 IMPRESSION: Intra procedural imaging and fluoro Assessment & Plan - Diagnosis (1) Pathological fracture of left femur Qualifiers: Pathology associated with fracture: neoplastic disease Encounter type: initial encounter Qualified Code(s): M84.552A - Pathological fracture in neoplastic disease, left femur, initial encounter for fracture Is this a current diagnosis for this admission?: Yes Plan: Postop day #3 status post IM nail left femoral pathologic fracture #1 physical therapy weightbearing as tolerated #2 pain control #3 DVT prophylaxis with aspirin #4 pathology results of biopsy continue to be pending #5 acute blood loss anemia. Hematocrit 27.9. #6 discharge planning anticipate discharge to home with home health and physical therapy possibly 05/26/17.
[2017-05-24] MEDS: MULTIVITAMIN TABLET PO SCH (09:09)
[2017-05-24] MEDS: METOPROLOL SUCCINATE 25 MG TAB.SR.24H PO SCH (09:10)
[2017-05-24] MEDS: FUROSEMIDE 40 MG TABLET PO SCH (09:10)
[2017-05-24] MEDS: CALCIUM CARBONATE 250 MG/VITAMIN D3 125 UNIT TABLET PO SCH (09:10)
[2017-05-24] MEDS: COLCHICINE 0.6 MG TABLET PO SCH (09:11)
[2017-05-24] MEDS: ASPIRIN 81 MG TABLET, ENT COATED PO SCH (09:11)
[2017-05-24] MEDS: SPIRONOLACTONE 25 MG TABLET PO SCH (09:11)
--- NOTE | 2017-05-24 09:20 | PDOC PROGRESS REPORT ---
Subjective Progress Note for:: 05/24/17 Subjective:: Today, patient states that she is still not able to put full weight on her leg. She has pain with movement. She is afraid of getting addicted to pain medications, so has not been asking for any pain meds. She had a large BM last night. She has extreme thirst all the time, but this is not new. Otherwise, she denies nausea, confusion, headaches. Reason For Visit: ORIF L FEMUR Physical Exam Vital Signs: Temp Pulse Resp BP Pulse Ox 97.4 F 77 14 107/60 98 05/24/17 07:17 05/24/17 07:17 05/24/17 07:17 05/24/17 07:17 05/24/17 07:17 Intake & Output 05/23/17 05/24/17 05/25/17 06:59 06:59 06:59 Intake Total 3060 1135 Output Total 2325 1650 Balance 735 -515 Weight 59.8 kg General appearance: PRESENT: no acute distress, well-nourished Exam: 77 year old female sitting up in bed. Respiratory exam: PRESENT: clear to auscultation manny, unlabored Cardiovascular exam: PRESENT: RRR Pulses: PRESENT: +1 pedal pulses bilateral Extremities exam: ABSENT: pedal edema Neurological exam: PRESENT: alert, oriented to person, oriented to place Psychiatric exam: PRESENT: appropriate affect Results Laboratory Results: 05/22/17 05:47 05/22/17 05:47 Impressions: Chest X-Ray 05/20/17 10:24 IMPRESSION: No acute findings Femur X-Ray 05/21/17 00:00 IMPRESSION: Intra procedural imaging and fluoro Fluoroscopy 05/21/17 00:00 IMPRESSION: Intra procedural imaging and fluoro Assessment & Plan - Diagnosis (1) Breast cancer Qualifiers: Breast location: upper outer quadrant of breast Estrogen receptor status: positive Laterality: right Is this a current diagnosis for this admission?: Yes Plan: Await pathology report from ORIF. Further treatment to be determined as outpatient. (2) Pathological fracture of left femur Qualifiers: Pathology associated with fracture: neoplastic disease Encounter type: initial encounter Qualified Code(s): M84.552A - Pathological fracture in neoplastic disease, left femur, initial encounter for fracture Is this a current diagnosis for this admission?: Yes Plan: s/p ORIF (3) Pain, neoplasm-related Is this a current diagnosis for this admission?: Yes Plan: She appears to be doing well with the duragesic. Continue oxycodone PRN. I have encouraged her to use this. - Plan Summary Plan Summary: I would consider repeat CBC and Cr. If renal function OK, consider DVT prophylaxis with Lovenox. Transfuse if HGB <8.0.
[2017-05-24 16:45] LABS: ABSOLUTE EOSINOPHILS # (AUTO) 0.1 10^3/uL (0.0-0.6); ABSOLUTE MONOCYTES (AUTO) 0.6 10^3/uL (0.1-1.4); ABSOLUTE NEUT (AUTO) 5.6 10^3/uL (1.7-8.2); BASOPHILS % (AUTO) 0.3 % (0-2); EOSINOPHILS % (AUTO) 0.8 % (0-6); HEMATOCRIT 23.7 % (36.0-47.0); LYMPHOCYTES % (AUTO) 13.2 % (13-45); MEAN CORPUSCULAR HEMOGLOBIN 31.5 pg (27.0-33.4); MEAN CORPUSCULAR HGB CONC 33.7 g/dL (32.0-36.0); MEAN CORPUSCULAR VOLUME 93 fl (80-97); PLATELET COUNT 157 10^3/uL (150-450); RED BLOOD COUNT 2.54 10^6/uL (3.72-5.28); RED CELL DISTRIBUTION WIDTH 13.4 % (11.5-14.0); SEGMENTED NEUTROPHILS % (AUTO) 77.7 % (42-78); TOTAL CELLS COUNTED % (AUTO) 100 %; WHITE BLOOD COUNT 7.2 10^3/uL (4.0-10.5)
[2017-05-24 17:05] LABS: ALANINE AMINOTRANSFERASE 33 U/L (9-52); ALBUMIN 2.2 g/dL (3.5-5.0); ALKALINE PHOSPHATASE 70 U/L (38-126); ANION GAP 7 (5-19); ASPARTATE AMINO TRANSFERASE 47 U/L (14-36); BILIRUBIN,DIRECT 0.2 mg/dL (0.0-0.4); BILIRUBIN,TOTAL 0.5 mg/dL (0.2-1.3); BLOOD UREA NITROGEN 52 mg/dL (7-20); CALCIUM 9.7 mg/dL (8.4-10.2); CARBON DIOXIDE 28 mmol/L (22-30); CHLORIDE 94 mmol/L (98-107); GLUCOSE 107 mg/dL (75-110); SODIUM 128.5 mmol/L (137-145); TOTAL PROTEIN 4.2 g/dL (6.3-8.2)
[2017-05-24] MEDS: ATORVASTATIN CALCIUM 10 MG TABLET PO SCH (21:42)
[2017-05-24] MEDS: ANASTROZOLE 1 MG TABLET PO SCH (21:42)
[2017-05-24] MEDS: OXYCODONE HCL IR 5 MG TABLET PO PRN (21:42)
[2017-05-25] MEDS: FUROSEMIDE 40 MG TABLET PO SCH (08:01)
[2017-05-25] MEDS: MULTIVITAMIN TABLET PO SCH (11:05)
[2017-05-25] MEDS: COLCHICINE 0.6 MG TABLET PO SCH (11:05)
[2017-05-25] MEDS: CALCIUM CARBONATE 250 MG/VITAMIN D3 125 UNIT TABLET PO SCH (11:06)
[2017-05-25] MEDS: ASPIRIN 81 MG TABLET, ENT COATED PO SCH (11:06)
[2017-05-25] MEDS: SPIRONOLACTONE 25 MG TABLET PO SCH (11:06)
[2017-05-25] MEDS: METOPROLOL SUCCINATE 25 MG TAB.SR.24H PO SCH (11:07)
[2017-05-25] MEDS: OXYCODONE HCL IR 5 MG TABLET PO PRN (12:23)
[2017-05-25] MEDS: ANASTROZOLE 1 MG TABLET PO SCH (22:06)
[2017-05-25] MEDS: ATORVASTATIN CALCIUM 10 MG TABLET PO SCH (22:06)
[2017-05-26] MEDS: OXYCODONE HCL IR 5 MG TABLET PO PRN (08:15)
[2017-05-26] MEDS: FUROSEMIDE 40 MG TABLET PO SCH (08:15)
--- NOTE | 2017-05-26 08:36 | PDOC PROGRESS REPORT ---
Subjective Progress Note for:: 05/26/17 Subjective:: Patient doing a little bit better, still having quite a bit of pain when she gets up, but seems to be a little bit more mobile than 2 days ago. Reason For Visit: PATHOLOGICAL FRACTURE OF LEFT FEMUR Physical Exam Vital Signs: Temp Pulse Resp BP Pulse Ox 97.5 F 77 16 128/70 H 100 05/25/17 20:14 05/26/17 07:00 05/25/17 20:14 05/25/17 20:14 05/25/17 20:14 Intake & Output 05/25/17 05/26/17 05/27/17 06:59 06:59 06:59 Intake Total 832 844 Output Total 750 Balance 832 94 Weight 60.9 kg 59.2 kg General appearance: PRESENT: no acute distress, well-developed, well-nourished Head exam: PRESENT: atraumatic, normocephalic Eye exam: PRESENT: conjunctiva pink, EOMI, PERRLA. ABSENT: scleral icterus Ear exam: PRESENT: normal external ear exam Mouth exam: PRESENT: moist, tongue midline Neck exam: ABSENT: carotid bruit, JVD, lymphadenopathy, thyromegaly Respiratory exam: PRESENT: clear to auscultation manny. ABSENT: rales, rhonchi, wheezes Cardiovascular exam: PRESENT: RRR. ABSENT: diastolic murmur, rubs, systolic murmur Pulses: PRESENT: normal dorsalis pedis pul Vascular exam: PRESENT: normal capillary refill GI/Abdominal exam: PRESENT: normal bowel sounds, soft. ABSENT: distended, guarding, mass, organolmegaly, rebound, tenderness Rectal exam: PRESENT: deferred Extremities exam: PRESENT: full ROM. ABSENT: calf tenderness, clubbing, pedal edema Neurological exam: PRESENT: alert, awake, oriented to person, oriented to place , oriented to time, oriented to situation, CN II-XII grossly intact. ABSENT: motor sensory deficit Psychiatric exam: PRESENT: appropriate affect, normal mood. ABSENT: homicidal ideation, suicidal ideation Skin exam: PRESENT: dry, intact, warm. ABSENT: cyanosis, rash Results Laboratory Results: 05/24/17 16:30 05/24/17 16:30 Impressions: Chest X-Ray 05/20/17 10:24 IMPRESSION: No acute findings Femur X-Ray 05/21/17 00:00 IMPRESSION: Intra procedural imaging and fluoro Fluoroscopy 05/21/17 00:00 IMPRESSION: Intra procedural imaging and fluoro Assessment & Plan - Diagnosis (1) Pathological fracture of left femur Qualifiers: Pathology associated with fracture: neoplastic disease Encounter type: initial encounter Qualified Code(s): M84.552A - Pathological fracture in neoplastic disease, left femur, initial encounter for fracture Is this a current diagnosis for this admission?: Yes Plan: Status post ORIF, awaiting pathology, further recommendations based on that (2) Breast cancer Qualifiers: Breast location: upper outer quadrant of breast Estrogen receptor status: positive Laterality: right Is this a current diagnosis for this admission?: Yes Plan: Plan for further treatment as an outpatient (3) Pain, neoplasm-related Is this a current diagnosis for this admission?: Yes Plan: Stable, continue oral pain medication as needed - Time Anticipated discharge: Home Within: within 24 hours Disposition: Discussed with patient and family, they really want her to go home, her daughter is a LEAD PRODUCER so she will be able to assist her at home and we should be able to get home health to help with home PT. I have asked her nursing to begin arrangements for this. From a medical standpoint she seems ready to go home. - Inpatient Certification Based on my medical assessment, after consideration of the patient's comorbidities, presenting symptoms, or acuity I expect that the services needed warrant INPATIENT care.: Yes I certify that my determination is in accordance with my understanding of Medicare's requirements for reasonable and necessary INPATIENT services [42 CFR 412.3e].: Yes Medical Necessity: Risk of Complication if Not Cared For in Hospital
[2017-05-26] MEDS: FENTANYL 12 MCG/HR PATCH.TD72 TD SCH (09:24)
[2017-05-26] MEDS: MULTIVITAMIN TABLET PO SCH (09:25)
[2017-05-26] MEDS: SPIRONOLACTONE 25 MG TABLET PO SCH (09:25)
[2017-05-26] MEDS: CALCIUM CARBONATE 250 MG/VITAMIN D3 125 UNIT TABLET PO SCH (09:26)
[2017-05-26] MEDS: COLCHICINE 0.6 MG TABLET PO SCH (09:26)
[2017-05-26] MEDS: ASPIRIN 81 MG TABLET, ENT COATED PO SCH (09:26)
[2017-05-26] MEDS: METOPROLOL SUCCINATE 25 MG TAB.SR.24H PO SCH (09:27)
[2017-05-26] MEDS: ONDANSETRON 4 MG TAB.RAPDIS PO PRN (10:46)
[2017-05-26] MEDS: ATORVASTATIN CALCIUM 10 MG TABLET PO SCH (22:05)
[2017-05-26] MEDS: ANASTROZOLE 1 MG TABLET PO SCH (22:05)
--- NOTE | 2017-05-27 06:02 | PDOC DISCHARGE SUMMARY ---
General - Admit/Disc Date/PCP Admission Date/Primary Care Provider: 05/24/17 19:49 [facility] RATLIFF Discharge Date: 05/27/17 - Discharge Diagnosis (1) Breast cancer Is this a current diagnosis for this admission?: Yes (2) Pathological fracture of left femur Is this a current diagnosis for this admission?: Yes - Additional Information Resuscitation Status: Full Code Discharge Diet: As Tolerated, Regular Discharge Activity: Balance Activity w/Rest, No Driving, No tub bath Home Medications: Calcium Carbonate/Vitamin D3 [Calcium 600-Vit D3 200 Tablet] 1 tab PO DAILY Furosemide [Lasix 40 mg Tablet] 40 mg PO QAM 12/31/13 Multivitamin [Multi-Vitamin Daily] 1 tab PO DAILY 12/31/13 Anastrozole [Arimidex 1 mg Tablet] 1 mg PO QHS #30 tablet 01/07/14 Metoprolol Succinate 25 mg PO DAILY #30 tab.sr.24h 01/07/14 Spironolactone [Aldactone 25 mg Tablet] 25 mg PO DAILY #30 tablet 01/07/14 Aspirin [Aspirin EC] 81 mg PO DAILY 05/20/17 Colchicine [Colcrys 0.6 mg Tablet] 1 tab PO DAILY 05/20/17 Nitroglycerin 0.4 mg SL PRN PRN 05/20/17 Ondansetron [Zofran Odt 4 mg Tablet] 1 tab PO Q6HP PRN 05/20/17 Temazepam [Restoril 15 mg Capsule] 15 mg PO HSP PRN 05/20/17 Docusate Sodium [Colace 100 mg Capsule] 100 mg PO BID 05/21/17 Losartan Potassium [Cozaar 25 mg Tablet] 25 mg PO DAILY 05/21/17 [place]-3 Fatty Acids/Fish Oil [[place] 3 Fish Oil Softgel] 1 cap PO BID 05/21/17 Oxycodone HCl [Oxy-Ir 5 mg Tablet] 5 mg PO Q6HP PRN 05/21/17 Rosuvastatin Calcium [Crestor 10 mg Tablet] 10 mg PO DAILY 05/21/17 Fentanyl [Duragesic 12 Mcg/Hr Transdermal Patch] 1 each TD Q3DAYS patch.td72 Oxycodone HCl [Oxy-Ir 5 mg Tablet] 10 mg PO Q6HP PRN tablet 05/27/17 History of Present Illness History of Present Illness: ROXANE RYAN is a 77 year old female with metastatic breast carcinoma and an identified lesion in the left diaphyseal femur thought to be at high risk for pathologic fracture. Patient is admitted for elective internal stabilization. Hospital Course Hospital Course: Patient is admitted through the operating room where she undergoes a prophylactic internal fixation and biopsy of the left diaphyseal femur lesion. She tolerates the procedure without complication. Postoperative there is considerable discomfort which initially limits her ability to participate with physical therapy. Medical oncology is consulted for assistance in patient management. Physical Exam Vital Signs: Temp Pulse Resp BP Pulse Ox 36.7 C 74 16 122/57 L 97 05/27/17 04:29 05/27/17 04:29 05/27/17 04:29 05/27/17 04:29 05/27/17 04:29 Intake & Output 05/25/17 05/26/17 05/27/17 06:59 06:59 06:59 Intake Total 912 606 0852 Output Total 750 800 Balance 832 94 256 Weight 60.9 kg 59.2 kg 57.7 kg General appearance: PRESENT: no acute distress, thin Head exam: PRESENT: normocephalic Respiratory exam: PRESENT: unlabored Cardiovascular exam: PRESENT: RRR Vascular exam: PRESENT: normal capillary refill GI/Abdominal exam: PRESENT: soft Rectal exam: PRESENT: deferred Extremities exam: PRESENT: other - Left lower extremity dressings are clean dry and intact. Leg lengths are equal. Distal neurovascular examination is intact. Neurological exam: PRESENT: alert, awake, oriented to person, oriented to place , oriented to time, oriented to situation. ABSENT: motor sensory deficit Psychiatric exam: PRESENT: appropriate affect, normal mood. ABSENT: homicidal ideation, suicidal ideation Skin exam: PRESENT: dry, intact, warm. ABSENT: cyanosis, rash Results Laboratory Results: 05/24/17 16:30 05/24/17 16:30 Impressions: Chest X-Ray 05/20/17 10:24 IMPRESSION: No acute findings Femur X-Ray 05/21/17 00:00 IMPRESSION: Intra procedural imaging and fluoro Fluoroscopy 05/21/17 00:00 IMPRESSION: Intra procedural imaging and fluoro Status: Imported from PACS Plan Discharge Plan: Patient to be discharged home with home health nursing, home health physical therapy, hospital bed, bedside commode, wheeled walker. Patient have home health for home health nursing and home health physical therapy. Follow-up will be with Dr. Dominique in [facility] for surgery in 2 weeks for staple removal. Follow-up with medical oncology to be determined Time Spent: Less than 30 Minutes
[2017-05-27] MEDS: FUROSEMIDE 40 MG TABLET PO SCH (07:42)
--- NOTE | 2017-05-27 08:51 | PDOC PROGRESS REPORT ---
Subjective Progress Note for:: 05/27/17 Subjective:: Patient doing much better, is up in the tee, pain control seems to be appropriate Reason For Visit: PATHOLOGICAL FRACTURE OF LEFT FEMUR Physical Exam Vital Signs: Temp Pulse Resp BP Pulse Ox 98.2 F 77 20 112/60 97 05/27/17 07:46 05/27/17 07:46 05/27/17 07:46 05/27/17 07:46 05/27/17 07:46 Intake & Output 05/26/17 05/27/17 05/28/17 06:59 06:59 06:59 Intake Total 844 1056 Output Total 750 800 Balance 94 256 Weight 59.2 kg 57.7 kg General appearance: PRESENT: no acute distress, well-developed, well-nourished Head exam: PRESENT: atraumatic, normocephalic Eye exam: PRESENT: conjunctiva pink, EOMI, PERRLA. ABSENT: scleral icterus Ear exam: PRESENT: normal external ear exam Mouth exam: PRESENT: moist, tongue midline Neck exam: ABSENT: carotid bruit, JVD, lymphadenopathy, thyromegaly Respiratory exam: PRESENT: clear to auscultation manny. ABSENT: rales, rhonchi, wheezes Cardiovascular exam: PRESENT: RRR. ABSENT: diastolic murmur, rubs, systolic murmur Pulses: PRESENT: normal dorsalis pedis pul Vascular exam: PRESENT: normal capillary refill GI/Abdominal exam: PRESENT: normal bowel sounds, soft. ABSENT: distended, guarding, mass, organolmegaly, rebound, tenderness Rectal exam: PRESENT: deferred Extremities exam: PRESENT: full ROM. ABSENT: calf tenderness, clubbing, pedal edema Neurological exam: PRESENT: alert, awake, oriented to person, oriented to place , oriented to time, oriented to situation, CN II-XII grossly intact. ABSENT: motor sensory deficit Psychiatric exam: PRESENT: appropriate affect, normal mood. ABSENT: homicidal ideation, suicidal ideation Skin exam: PRESENT: dry, intact, warm. ABSENT: cyanosis, rash Results Laboratory Results: 05/24/17 16:30 05/24/17 16:30 Impressions: Chest X-Ray 05/20/17 10:24 IMPRESSION: No acute findings Femur X-Ray 05/21/17 00:00 IMPRESSION: Intra procedural imaging and fluoro Fluoroscopy 05/21/17 00:00 IMPRESSION: Intra procedural imaging and fluoro Assessment & Plan - Diagnosis (1) Pathological fracture of left femur Qualifiers: Pathology associated with fracture: neoplastic disease Encounter type: initial encounter Qualified Code(s): M84.552A - Pathological fracture in neoplastic disease, left femur, initial encounter for fracture Is this a current diagnosis for this admission?: Yes Plan: We do not have confirmation that this is metastatic breast cancer as expected, lobular carcinoma noted, receptor status pending. Today we had a long discussion with family, plan is now for her to go home on pain control awaiting receptors, if receptor show ER positive disease then we will direct therapy to that, hold on radiation therapy unless pain is inadequately controlled at this point. But we did discuss if pain is still severe by next week we will set up radiation oncology visit for her. (2) Breast cancer Qualifiers: Breast location: upper outer quadrant of breast Estrogen receptor status: positive Laterality: right Is this a current diagnosis for this admission?: Yes Plan: Treatment plan as an outpatient as above,Today spent 45 minutes in discussion with patient. (3) Pain, neoplasm-related Is this a current diagnosis for this admission?: Yes Plan: Gave patient prescription for fentanyl, she has oxycodone at home already
[2017-05-27] MEDS: SPIRONOLACTONE 25 MG TABLET PO SCH (09:51)
[2017-05-27] MEDS: ASPIRIN 81 MG TABLET, ENT COATED PO SCH (09:53)
[2017-05-27] MEDS: CALCIUM CARBONATE 250 MG/VITAMIN D3 125 UNIT TABLET PO SCH (09:53)
[2017-05-27] MEDS: METOPROLOL SUCCINATE 25 MG TAB.SR.24H PO SCH (09:53)
[2017-05-27] MEDS: COLCHICINE 0.6 MG TABLET PO SCH (09:53)
[2017-05-27] MEDS: MULTIVITAMIN TABLET PO SCH (09:54)
[2017-05-27] MEDS: OXYCODONE HCL IR 5 MG TABLET PO PRN (09:56)
[2017-05-27] MEDS: ONDANSETRON 4 MG TAB.RAPDIS PO PRN (10:02)
[2017-05-27 11:59] VITALS: BP 108/55
== END 2017-05-27 12:28 | disposition home or self-care (01) | DRG 478 ==
LOC: OROUT 09:55 → 4S 15:59 → OROUT 05-24 19:45 → 4S 05-24 19:49
PROVIDERS: ADMIT Orthopaedic Surgery; ATTEND Orthopaedic Surgery
PROC: 0QH906Z Insertion of Intramedullary Internal Fixation Device into Left Femoral Shaft, Open Approach (ICD-10-PCS; 2017-05-21)
PROC: 0QB90ZX Excision of Left Femoral Shaft, Open Approach, Diagnostic (ICD-10-PCS; principal; 2017-05-21 12:00)
PROC: 3E0234Z Introduction of Serum, Toxoid and Vaccine into Muscle, Percutaneous Approach (ICD-10-PCS; 2017-05-27)
DX: M84.552A Pathological fracture in neoplastic disease, left femur, initial encounter for fracture (principal); C79.51 Secondary malignant neoplasm of bone; I42.7 Cardiomyopathy due to drug and external agent; C50.411 Malignant neoplasm of upper-outer quadrant of right female breast; Z17.0 Estrogen receptor positive status [ER+]; I25.10 Atherosclerotic heart disease of native coronary artery without angina pectoris; E78.5 Hyperlipidemia, unspecified; E10.9 Type 1 diabetes mellitus without complications; M10.9 Gout, unspecified; F32.9 Major depressive disorder, single episode, unspecified; F17.210 Nicotine dependence, cigarettes, uncomplicated; G89.3 Neoplasm related pain (acute) (chronic); I50.9 Heart failure, unspecified; I11.0 Hypertensive heart disease with heart failure; F41.9 Anxiety disorder, unspecified; T45.1X5A Adverse effect of antineoplastic and immunosuppressive drugs, initial encounter; Z95.0 Presence of cardiac pacemaker; Z23 Encounter for immunization; Z79.899 Other long term (current) drug therapy; Z90.11 Acquired absence of right breast and nipple; Z83.3 Family history of diabetes mellitus; Z82.49 Family history of ischemic heart disease and other diseases of the circulatory system
CPT/HCPCS: 01230; 36415; 71046; 80048; 80053; 81001; 82306; 85025; 85027; 88307; 88313; 88341; 88342; 90686; 93005; 93010; C1713; G8978-GP; G8979-GP; J0131; J0690; J1100; J1885; J2250; J2270; J2405; J2704; J2765; J3010; J3490; J7120; S0119

== ENCOUNTER → 2017-08-28 | Outpatient (CLI) | payer MEDICARE, OTHER ==
--- NOTE | 2017-08-28 11:00 | RADIOLOGY REPORT (SQ) ---
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 NUMBER OF VIEWS: Three views. TECHNIQUE: AP, lateral, and oblique radiographic images acquired of the left ankle. LIMITATIONS: None. FINDINGS: MINERALIZATION: Osteopenia. BONES: No acute fracture or dislocation. Prominent dorsal and plantar calcaneal spurs are present. JOINTS: No effusions. SOFT TISSUES: No soft tissue swelling. No foreign body. OTHER: No other significant finding. IMPRESSION: Calcaneal spurs with no acute abnormality. TECHNICAL DOCUMENTATION: JOB ID: [id number] [employer]- All Rights Reserved Reading location - IP/workstation name: [email or web address]
--- NOTE | 2017-08-28 12:44 | RADIOLOGY REPORT (SQ) ---
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 NUMBER OF VIEWS: Two views. TECHNIQUE: Two radiographic images acquired of the left tibia and fibula to include the knee and ank le in at least one projection. LIMITATIONS: None. FINDINGS: MINERALIZATION: Normal. BONES: No acute fracture or dislocation. No worrisome bone lesions. SOFT TISSUES: No obvious swelling or foreign body. OTHER: A medullary skylar is present in the distal femur. IMPRESSION: NEGATIVE STUDY OF THE LEFT TIBIA AND FIBULA. NO RADIOGRAPHIC EVIDENCE OF ACUTE INJURY. TECHNICAL DOCUMENTATION: JOB ID: [id number] [employer]- All Rights Reserved Reading location - IP/workstation name: [email or web address]
--- NOTE | 2017-08-28 12:45 | RADIOLOGY REPORT (SQ) ---
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 NUMBER OF VIEWS: Two views. TECHNIQUE: Two radiographic images were acquired of the right humerus to include elbow and shoulder in at least one projection. LIMITATIONS: None. FINDINGS: MINERALIZATION: Normal. BONES: No acute fracture or dislocation. No worrisome bone lesions. SOFT TISSUES: No obvious swelling or foreign body. OTHER: No other significant finding. IMPRESSION: NEGATIVE STUDY OF THE RIGHT HUMERUS. NO RADIOGRAPHIC EVIDENCE OF ACUTE INJURY. TECHNICAL DOCUMENTATION: JOB ID: [id number] [employer]- All Rights Reserved Reading location - IP/workstation name: [email or web address]
--- NOTE | 2017-08-28 12:46 | RADIOLOGY REPORT (SQ) ---
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 EXAM PARAMETERS: NUMBER OF VIEWS: Three views. TECHNIQUE: AP, lateral and oblique radiographic images acquired of the right hand. LIMITATIONS: None. FINDINGS: MINERALIZATION: Osteopenia. BONES: There is an area of heterogeneous sclerosis in the distal radius concerning for an impacted fr acture. JOINTS: No effusions. SOFT TISSUES: No soft tissue swelling. No foreign body. OTHER: No other significant finding. IMPRESSION: Possible impacted fracture of the distal radius. TECHNICAL DOCUMENTATION: JOB ID: [id number]- All Rights Reserved Reading location - IP/workstation name: [email or web address]
--- NOTE | 2017-08-28 12:47 | RADIOLOGY REPORT (SQ) ---
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 NUMBER OF VIEWS: Two views. TECHNIQUE: Two radiographic images acquired of the right forearm, including elbow and wrist in at le ast one projection. LIMITATIONS: None. FINDINGS: MINERALIZATION: Osteopenia. BONES: There is heterogeneous sclerosis in the distal radius suggesting an impacted fracture. SOFT TISSUES: No obvious swelling or foreign body. OTHER: No other significant finding. IMPRESSION: Impacted fracture of the distal radius. May not be acute. TECHNICAL DOCUMENTATION: JOB ID: [id number] [employer]- All Rights Reserved Reading location - IP/workstation name: [email or web address]
== END ==
LOC: RAD 09:52
PROVIDERS: ATTEND Internal Medicine
DX: C79.51 Secondary malignant neoplasm of bone (principal); M79.601 Pain in right arm; M79.605 Pain in left leg

== ENCOUNTER → 2017-09-03 | Outpatient (CLI) | payer MEDICARE, OTHER ==
--- NOTE | 2017-09-03 15:16 | RADIOLOGY REPORT (SQ) ---
EXAM DESCRIPTION: NM WHOLE BODY BONE SCAN COMPLETED DATE/TIME: 09/03/2017 2:58 pm REASON FOR STUDY: C50.411 MALIG NEOPLM OF UPPER-OUTER QUADRANT OF RIGHT FEMALE BREAST C50.411 MALIG NEOPLM OF UPPER-OUTER QUADRANT OF RIGHT FEMALE COMPARISON: 05/07/2017 CT. RADIONUCLIDE AND DOSE: 21.7 millicuries Tc99m MDP. The route of agent administration: Intravenous. ADDITIONAL DRUGS AND DOSES: None. TECHNIQUE: Routine delayed images at 3 hour post radionuclide injection acquired of the bony skeleto n including anterior and posterior whole-body projections and additional focused images as needed. LIMITATIONS: None. FINDINGS: BONES: Focal mid left femur abnormal bone turnover. This corresponds with known destructi ve lesion here. Minimal uptake in left greater trochanter likely related to recent femoral nailing. No other suspicious lesions are detected. KIDNEYS: Probable right renal atrophy, slightly diminutive kidney. OTHER: No other significant finding. IMPRESSION: Lytic lesion in the left femur shows abnormal bone turnover. This is a solitary lesion. COMMENT: Quality measure 147: Current bone scan is compared with any available plain radiographs, p rior bone scans, and CT/MRI. TECHNICAL DOCUMENTATION: JOB ID: [id number] [employer]- All Rights Reserved Reading location - IP/workstation name: [email or web address]
--- NOTE | 2017-09-03 15:44 | RADIOLOGY REPORT (SQ) ---
EXAM DESCRIPTION: CT CHEST WITH COMPLETED DATE/TIME: 09/03/2017 11:35 am REASON FOR STUDY: C79.51 MALIG NEOPLM OF UPPER-OUTER QUADRANT OF RIGHT FEMALE BREAST C50.411 MALIG NEOPLM OF UPPER-OUTER QUADRANT OF RIGHT FEMALE COMPARISON: CT chest 01/04/2014 chest x-ray 05/20/2017 TECHNIQUE: CT scan of the chest performed using helical scanning technique with dynamic intravenous contrast injection. Images reviewed with lung, soft tissue and bone windows. Reconstructed coronal and sagittal MPR images reviewed. All images stored on PACS. All CT scanners at this facility use dose modulation, iterative reconstruction, and/or weight based d osing when appropriate to reduce radiation dose to as low as reasonably achievable (ALARA). [facility]: Dose Right [facility]: CareDose [facility]: Dose Right [facility]: Teradose 4D [facility]: [employer]Co CONTRAST TYPE AND DOSE: 61 cc Isovue 370- low osmolar. RENAL FUNCTION: BUN 39 creatinine 1.3 RADIATION DOSE: CT Rad equipment meets quality standard of care and radiation dose reduction techniq ues were employed. CTDIvol: 4.6 - 8.4 mGy. DLP: 1049 mGy-cm. . LIMITATIONS: None. FINDINGS: LUNGS AND PLEURA: A band of scarring crosses the right apex in the AP direction. No focal mass is present within this. It has somewhat of a ground-glass appearance. This is seen on chest x -ray from May 2017. No pulmonary nodules are present. There is no pleural effusion. HILAR AND MEDIASTINAL STRUCTURES: No identified masses or abnormal nodes. HEART AND VASCULAR STRUCTURES: No aneurysm or dissection. No central pulmonary emboli. No pericardi al effusion. HARDWARE: None in the chest. UPPER ABDOMEN: See separate report of the CT of the abdomen. THYROID AND OTHER SOFT TISSUES: No masses. No adenopathy. BONES: No osseous lesions are seen. OTHER: No other significant finding. IMPRESSION: There is scarring in the right apex. There is no evidence of thoracic metastases. TECHNICAL DOCUMENTATION: JOB ID: [id number] Quality ID # 436: Final reports with documentation of one or more dose reduction techniques (e.g., Au tomated exposure control, adjustment of the mA and/or kV according to patient size, use of iterative reconstruction technique) 2010 [employer]- All Rights Reserved Reading location - IP/workstation name: [email or web address]
--- NOTE | 2017-09-03 15:55 | RADIOLOGY REPORT (SQ) ---
EXAM DESCRIPTION: CT ABD/PELVIS WITH IV ONLY COMPLETED DATE/TIME: 09/03/2017 11:35 am REASON FOR STUDY: C79.51 C50.411 MALIG NEOPLM OF UPPER-OUTER QUADRANT OF RIGHT FEMALE COMPARISON: 08/16/2013 TECHNIQUE: CT scan of the abdomen and pelvis performed using helical scanning technique with dynamic intravenous contrast injection. No oral contrast. Images reviewed with lung, soft tissue, and bone windows. Reconstructed coronal and sagittal MPR images reviewed. Delayed images for evaluation of the urinary system also acquired. All images stored on PACS. All CT scanners at this facility use dose modulation, iterative reconstruction, and/or weight based d osing when appropriate to reduce radiation dose to as low as reasonably achievable (ALARA). [facility]: Dose Right [facility]: CareDose [facility]: Dose Right [facility]: Teradose 4D [facility]: [employer] CONTRAST TYPE AND DOSE: contrast/concentration: Isovue 370.00 mg/ml; Total Contrast Delivered: 61.0 ml; Total Saline Delivered: 65.0 ml RENAL FUNCTION: BUN 39 creatinine 1.3 RADIATION DOSE: . LIMITATIONS: None. FINDINGS: LOWER CHEST: See separate report of the CT of the chest. LIVER: Normal size. No masses. No dilated ducts. SPLEEN: Normal size. No focal lesions. PANCREAS: No masses. No significant calcifications. No adjacent inflammation or peripancreatic fluid collections. Pancreatic duct not dilated. GALLBLADDER: No identified stones by CT criteria. No inflammatory changes to suggest cholecystitis. ADRENAL GLANDS: No significant masses or asymmetry. RIGHT KIDNEY AND URETER: No solid masses. No significant calcifications. No hydronephrosis or hyd roureter. LEFT KIDNEY AND URETER: No solid masses. No significant calcifications. No hydronephrosis or hydr oureter. AORTA AND VESSELS: No aneurysm or dissection. Atherosclerosis. There is atherosclerosis at the orig ins of the renal arteries and in the distal renal arteries. RETROPERITONEUM: No retroperitoneal adenopathy, hemorrhage or masses. BOWEL AND PERITONEAL CAVITY: Mild diverticulosis coli. No acute inflammatory changes in the bowel. No obvious bowel masses. APPENDIX: Not identified. PELVIS: Urinary bladder is normal. There is no adnexal mass or fluid collection. There is no free f luid. ABDOMINAL WALL: No masses. No hernias. BONES: No osseous lesions are seen. There is internal fixation of a prior left hip fracture. OTHER: No other significant finding. IMPRESSION: 1. There is no evidence of abdominal or pelvic or osseous metastases. 2. Mild diverticulosis coli. 3. Atherosclerosis. TECHNICAL DOCUMENTATION: JOB ID: [id number] Quality ID # 436: Final reports with documentation of one or more dose reduction techniques (e.g., Au tomated exposure control, adjustment of the mA and/or kV according to patient size, use of iterative reconstruction technique) 2010 [employer]- All Rights Reserved Reading location - IP/workstation name: [email or web address]
== END ==
LOC: RAD 10:21
PROVIDERS: ATTEND Internal Medicine
DX: C79.51 Secondary malignant neoplasm of bone (principal); C50.411 Malignant neoplasm of upper-outer quadrant of right female breast
CPT/HCPCS: 78306; 74177; 71260; A9561; Q9969

== ENCOUNTER → 2017-12-05 | Outpatient (CLI) | payer MEDICARE, OTHER ==
--- NOTE | 2017-12-05 09:30 | RADIOLOGY REPORT (SQ) ---
EXAM DESCRIPTION: CT CHEST WITH; CT ABD/PELVIS WITH IV ONLY COMPLETED DATE/TIME: 12/05/2017 8:47 am REASON FOR STUDY: BREAST CA (C50.411) C50.411 MALIG NEOPLM OF UPPER-OUTER QUADRANT OF RIGHT FEMALE COMPARISON: Left femur films 05/07/2017 Bone scan 09/03/2017 CT chest abdomen pelvis 09/03/2017 PET-CT 05/11/2017 CT chest 01/04/2014, radiation therapy treatment planning CT chest 08/16/2013 CONTRAST TYPE AND DOSE: 19.63; contrast/concentration: Isovue 300.00 mg/ml; Total Contrast Delivered : 50.0 ml; Total Saline Delivered: 82.0 ml RENAL FUNCTION: Creatinine 1.6 TECHNIQUE: CT scan of the chest performed using helical scanning technique with dynamic intravenous contrast injection. Images reviewed with lung, soft tissue and bone windows. Reconstructed coronal a nd sagittal MPR images reviewed. All images stored on PACS. CT scan of the abdomen and pelvis performed with intravenous and without oral contrastusing helical [place] technique with dynamic intravenous contrast injection. Images reviewed with lung, soft tissu e and bone windows. Reconstructed coronal and sagittal MPR images reviewed. Delayed images for eval uation of the urinary system also acquired and evaluated. All images stored on PACS. All CT scanners at this facility use dose modulation, iterative reconstruction, and/or weight based d osing when appropriate to reduce radiation dose to as low as reasonably achievable (ALARA). [facility]: Dose Right [facility]: CareDose [facility]: Dose Right [facility]: Teradose 4D [facility]: [employer] RADIATION DOSE: CT Rad equipment meets quality standard of care and radiation dose reduction techniq ues were employed. CTDIvol: 5.4 - 7.6 mGy. DLP: 954 mGy-cm. . LIMITATIONS: None. FINDINGS: CHEST: LUNGS AND PLEURA: Bandlike fibrosis at the right lung apex likely due to supraclavicular radiation th erapy. No worrisome pulmonary nodules. No acute infiltrates or pleural effusion. No pneumothorax. HILAR AND MEDIASTINAL STRUCTURES: No identified masses or abnormal nodes. HEART AND VASCULAR STRUCTURES: Heavily calcified thoracic aorta without aneurysm or dissection. No c entral pulmonary emboli. No pericardial effusion. Calcified coronary arteries. Left-sided pacemake r. HARDWARE: Left-sided pacemaker. THYROID AND OTHER SOFT TISSUES: Post right mastectomy BONES: No significant finding. OTHER: No other significant finding. ABDOMEN AND PELVIS: LIVER: Normal size. No masses. No dilated ducts. SPLEEN: Normal size. No focal lesions. PANCREAS: No masses. No significant calcifications. No adjacent inflammation or peripancreatic fluid collections. Pancreatic duct not dilated. GALLBLADDER: No identified stones by CT criteria. No inflammatory changes to suggest cholecystitis. ADRENAL GLANDS: No significant masses or asymmetry. RIGHT KIDNEY AND URETER: No solid masses. No significant calcification. No hydronephrosis or hydroure ter. LEFT KIDNEY AND URETER: No solid masses. No significant calcification. No hydronephrosis or hydrouret er. AORTA AND VESSELS: Heavily calcified abdominal aorta without abdominal aortic aneurysm. No dissection . RETROPERITONEUM: No retroperitoneal adenopathy, hemorrhage or masses. BOWEL AND PERITONEAL CAVITY: No masses or inflammatory changes. No free fluid or peritoneal masses. Scattered colon diverticuli without CT signs of acute diverticulitis. APPENDIX: Not identified. No right lower quadrant inflammatory change ABDOMINAL WALL: No masses. No hernias. PELVIS: No mass or free fluid. Normal bladder. Small postmenopausal uterus. Ovaries not identified . BONES: No significant or acute findings. OTHER: No other significant finding. IMPRESSION: Old right mastectomy. No CT evidence of metastatic disease over the chest abdomen or pelvis. TECHNICAL DOCUMENTATION: JOB ID: [id number] Quality ID # 436: Final reports with documentation of one or more dose reduction techniques (e.g., Au tomated exposure control, adjustment of the mA and/or kV according to patient size, use of iterative reconstruction technique) 2010 [employer]- All Rights Reserved Reading location - IP/workstation name: [email or web address]
== END ==
LOC: RAD 07:56
PROVIDERS: ATTEND Physician Assistant Medical
DX: C50.411 Malignant neoplasm of upper-outer quadrant of right female breast (principal); Z90.11 Acquired absence of right breast and nipple
CPT/HCPCS: 71260; 74177; 82565

== ENCOUNTER → 2017-12-10 | Outpatient (CLI) | payer MEDICARE, OTHER ==
--- NOTE | 2017-12-10 15:25 | RADIOLOGY REPORT (SQ) ---
EXAM DESCRIPTION: NM WHOLE BODY BONE SCAN COMPLETED DATE/TIME: 12/10/2017 2:25 pm REASON FOR STUDY: MALIG NEOPLM OF UPPER-OUTER QUADRANT OF RIGHT FEMALE BREAST C50.411 MALIG NEOPLM OF UPPER-OUTER QUADRANT OF RIGHT FEMALE COMPARISON: Bone scan 09/03/2017 RADIONUCLIDE AND DOSE: 20 millicuries Tc99m HDP. The route of agent administration: Intravenous. ADDITIONAL DRUGS AND DOSES: None. TECHNIQUE: Routine delayed images at 3 hours post radionuclide injection acquired of the bony skelet on including anterior and posterior whole-body projections and additional focused images as needed. LIMITATIONS: None. FINDINGS: BONES: Persistent intense uptake in the mid left femur with no interval change. No signif icant abnormal uptake elsewhere in the skeleton except for mild degenerative uptake in the joints. KIDNEYS: Symmetric excretion without obstruction. OTHER: No other significant finding. IMPRESSION: Persistent intense uptake in the mid left femur. No new metastatic lesions are apprecia vijaya. COMMENT: Quality measure 147: Current bone scan is compared with any available plain radiographs, p rior bone scans, and CT/MRI. TECHNICAL DOCUMENTATION: JOB ID: [id number] [employer]- All Rights Reserved Reading location - IP/workstation name: [email or web address]
== END ==
LOC: RAD 11:02
PROVIDERS: ATTEND Physician Assistant Medical
DX: C50.411 Malignant neoplasm of upper-outer quadrant of right female breast (principal)
CPT/HCPCS: 78306; A9561; Q9969

== ENCOUNTER 2018-02-17 12:45 | Emergency (ER) | payer MEDICARE, OTHER ==
[2018-02-17] MEDS ORDERED: NORMAL SALINE 1000 ML 1,000 ML IV ONE (13:33)
--- NOTE | 2018-02-17 13:37 | ER Document Report ---
ED General - General Chief Complaint: General Weakness Stated Complaint: SHORTNESS OF BREATH Time Seen by Provider: 02/17/18 12:53 Notes: 78-year-old female presents to the emergency department complaining of weakness and fatigue. Triage note stated there was some shortness of breath but that was not what I got in the history. Daughter states the patient was coming out of her room this morning and the nearly collapsed she got very pale. The patient stated she just does not feel well. Really cannot get much more history than that out of her. She feels like she is weak. Has malaise and fatigue. Really no shortness of breath no chest pain. No abdominal pain. No nausea vomiting diarrhea daughter states she feels that she is not hydrating her eating as well as she should. Patient does have a history of stage IV breast cancer with metastases. Is an active DNR. TRAVEL OUTSIDE OF THE [place] IN LAST 30 DAYS: No - Related Data Allergies/Adverse Reactions: No Known Allergies Allergy (Verified 05/20/17 08:25) Past Medical History - Social History Smoking Status: Unknown if Ever Smoked Chew tobacco use (# tins/day): No Frequency of alcohol use: None Drug Abuse: None Family History: Reviewed & Not Pertinent Patient has suicidal ideation: No Patient has homicidal ideation: No - Past Medical History Cardiac Medical History: Reports: Hx Congestive Heart Failure, Hx Coronary Artery Disease, Hx Hypercholesterolemia, Hx Hypertension Denies: Hx Heart Attack Pulmonary Medical History: Reports: Hx Pneumonia - A CHILD Denies: Hx Asthma, Hx Bronchitis, Hx COPD Neurological Medical History: Reports: Hx Cerebrovascular Accident - LEFT EYE. Denies: Hx Seizures Endocrine Medical History: Reports: Hx Diabetes Mellitus Type 1 Renal/ Medical History: Denies: Hx Peritoneal Dialysis Malignancy Medical History: Reports: Hx Breast Cancer Musculoskeletal Medical History: Denies Hx Arthritis, Reports Hx Gout Psychiatric Medical History: Reports: Hx Depression Past Surgical History: Reports: Hx Breast Surgery - Mastectomy, Hx Cardiac Surgery - def, Hx Mastectomy - right side, Hx Tubal Ligation - Immunizations Hx Diphtheria, Pertussis, Tetanus Vaccination: Yes - UNSURE WHEN Hx Pneumococcal Vaccination: 04/04/13 Review of Systems - Review of Systems Cardiovascular: denies: Chest pain, Dyspnea Respiratory: denies: Short of breath Gastrointestinal: denies: Abdominal pain, Diarrhea, Nausea Skin: denies: Rash Neurological/Psychological: denies: Headaches -: Yes All other systems reviewed and negative Physical Exam - Notes Notes: GENERAL_APPEARANCE: well_nourished, alert, cooperative, no_acute_distress, no_ obvious_discomfort. VITALS: reviewed, see vital signs table. HEAD: no_swelling\tenderness on the head. EYES: PERRL, EOMI, conjunctiva_clear. NOSE: no_nasal_discharge. MOUTH: Decreased moisture of mouth mucous membranes THROAT: no_tonsilar_inflammation, no_airway_obstruction. no_lymphadenopathy NECK: supple, no_neck_tenderness, (-)thyromegaly. BACK: no_back_tenderness. CHEST_WALL: no_chest_tenderness. Left pacemaker LUNGS: no_wheezing, no_rales, no_rhonchi, (-)accessory muscle use, good air exchange bilateral. HEART: normal_rate, normal_rhythm, normal_S1, normal_S2, (-)S3, (-)S4, no_ murmur, no_rub. ABDOMEN: soft, no_abd_tenderness, (-)guarding, (-)rebound, no_organomegaly, no _abd_masses. EXTREMITIES: good pulses in all_extremities, no_swelling\tenderness in the extremities, no_edema. SKIN: warm, dry, pale_color, no_rash. MENTAL_STATUS: speech_clear, oriented_X_3, normal_affect, responds_ appropriately to questions. NEURO: Neg Motor or Sensory Deficits on exam, CN 2-12 intact, DTR 2+ symmetric x 4, No cerbellar signs Course - Re-evaluation Re-evalutation: 02/17/18 13:36 78-year-old female comes in for generalized malaise fatigue and weakness. She had a near syncopal episode this morning. The daughter is present very attentive she has 3 pages of notes that she shows me about her complaints. Her doctor did not call her with her usual labs last week. The patient is on active oral chemotherapy for her metastatic breast cancer.Receptor blockers. We will give the patient a liter of IV fluids. Will check some generalized lab work and urine. Patient has no neuro deficits. 02/17/18 16:16 The patient's white count is low. Patient feels better after IV fluids. I spoke with her oncologist Dr. Cleveland. He is aware of this. Will follow this outpatient. Patient's absolute neutrophil count is 900. Likely due to her oral chemotherapeutic agents. He will follow this outpatient. I went over the labs with the daughter and she is comfortable with this. 02/17/18 16:26 The patient's lipase was mildly elevated she is not having any abdominal pain. Her abdomen is soft and supple. This may just be an incidental lab finding. - Laboratory Result Diagrams: 02/17/18 12:24 02/17/18 12:24 Laboratory results interpreted by me: 02/17/18 02/17/18 02/17/18 12:24 12:24 14:33 WBC 2.3 L RBC 3.30 L Hgb 11.5 L Hct 33.3 L MCV 101 H MCH 34.9 H RDW 14.2 H Seg Neutrophils % 38.7 L Lymphocytes % 48.2 H Absolute Neutrophils 0.9 L BUN 28 H Creatinine 1.59 H Est GFR ( Amer) 38 L Est GFR (Non-Af Amer) 32 L Glucose 45 L Albumin 3.4 L Lipase 388.2 H Ur Leukocyte Esterase TRACE H Discharge - Discharge Clinical Impression: Dehydration Leukopenia Qualifiers: Leukopenia type: unspecified Qualified Code(s): D72.819 - Decreased white blood cell count, unspecified Condition: Good Disposition: HOME, SELF-CARE Instructions: Dehydration ([facility]) Referrals: FELIPE BRAGA PA-C [Primary Care Provider] - Follow up as needed
[2018-02-17 14:01] LABS: ABSOLUTE EOSINOPHILS # (AUTO) 0.1 10^3/uL (0.0-0.6); ABSOLUTE LYMPHOCYTES (AUTO) 1.1 10^3/uL (0.5-4.7); ABSOLUTE MONOCYTES (AUTO) 0.2 10^3/uL (0.1-1.4); ABSOLUTE NEUT (AUTO) 0.9 10^3/uL (1.7-8.2); BASOPHILS % (AUTO) 0.7 % (0-2); EOSINOPHILS % (AUTO) 5.8 % (0-6); HEMATOCRIT 33.3 % (36.0-47.0); HEMOGLOBIN 11.5 g/dL (12.0-15.5); LYMPHOCYTES % (AUTO) 48.2 % (13-45); MEAN CORPUSCULAR HEMOGLOBIN 34.9 pg (27.0-33.4); MEAN CORPUSCULAR HGB CONC 34.6 g/dL (32.0-36.0); MEAN CORPUSCULAR VOLUME 101 fl (80-97); MONOCYTES % (AUTO) 6.6 % (3-13); PLATELET COUNT 181 10^3/uL (150-450); RED CELL DISTRIBUTION WIDTH 14.2 % (11.5-14.0); SEGMENTED NEUTROPHILS % (AUTO) 38.7 % (42-78); TOTAL CELLS COUNTED % (AUTO) 100 %; WHITE BLOOD COUNT 2.3 10^3/uL (4.0-10.5)
[2018-02-17 14:28] LABS: ALANINE AMINOTRANSFERASE 31 U/L (9-52); ALBUMIN 3.4 g/dL (3.5-5.0); ALKALINE PHOSPHATASE 90 U/L (38-126); ANION GAP 10 (5-19); ASPARTATE AMINO TRANSFERASE 35 U/L (14-36); BILIRUBIN,DIRECT 0.2 mg/dL (0.0-0.4); BILIRUBIN,TOTAL 0.5 mg/dL (0.2-1.3); BLOOD UREA NITROGEN 28 mg/dL (7-20); CALCIUM 9.7 mg/dL (8.4-10.2); CARBON DIOXIDE 26 mmol/L (22-30); CHLORIDE 102 mmol/L (98-107); CREATINE KINASE 42 U/L (30-135); GLUCOSE 45 mg/dL (75-110); LIPASE 388.2 U/L (23-300); POTASSIUM 4.6 mmol/L (3.6-5.0); SODIUM 137.6 mmol/L (137-145); TOTAL PROTEIN 6.3 g/dL (6.3-8.2)
[2018-02-17 14:53] LABS: APPEARANCE,URINE CLEAR; BILIRUBIN,URINE NEGATIVE (NEGATIVE); COLOR,URINE STRAW; GLUCOSE, URINE NEGATIVE (NEGATIVE); KETONES,URINE NEGATIVE (NEGATIVE); LEUKOCYTE ESTERASE,URINE TRACE (NEGATIVE); NITRITE,URINE NEGATIVE (NEGATIVE); PROTEIN,URINE NEGATIVE (NEGATIVE); URINE SPECIFIC GRAVITY 1.005; UROBILINOGEN,URINE NEGATIVE mg/dL (<2.0)
--- NOTE | 2018-02-17 15:23 | RADIOLOGY REPORT (SQ) ---
EXAM DESCRIPTION: CHEST SINGLE VIEW COMPLETED DATE/TIME: 02/17/2018 3:13 pm REASON FOR STUDY: weakness COMPARISON: May 2017 EXAM PARAMETERS: NUMBER OF VIEWS: One view. TECHNIQUE: Single frontal radiographic view of the chest acquired. RADIATION DOSE: NA LIMITATIONS: None. FINDINGS: LUNGS AND PLEURA: No opacities, masses or pneumothorax. No pleural effusion. MEDIASTINUM AND HILAR STRUCTURES: No masses. Contour normal. HEART AND VASCULAR STRUCTURES: The configuration of the heart mediastinal structures is unchanged. BONES: No acute findings. HARDWARE: AICD device is unchanged in position. OTHER: No other significant finding. IMPRESSION: No significant interval change. No acute findings. Other findings as noted above. TECHNICAL DOCUMENTATION: JOB ID: [id number] [employer]- All Rights Reserved Reading location - IP/workstation name: [email or web address]
[2018-02-17 16:29] VITALS: BP 142/68
== END 2018-02-17 16:40 | disposition home or self-care (01) ==
LOC: ER 12:45
DX: E86.0 Dehydration (principal); R53.1 Weakness; R53.83 Other fatigue; R53.81 Other malaise; R55 Syncope and collapse; C79.81 Secondary malignant neoplasm of breast; Z79.899 Other long term (current) drug therapy; D72.819 Decreased white blood cell count, unspecified; I25.10 Atherosclerotic heart disease of native coronary artery without angina pectoris; I10 Essential (primary) hypertension; E10.9 Type 1 diabetes mellitus without complications; Z66 Do not resuscitate; Z86.73 Personal history of transient ischemic attack (TIA), and cerebral infarction without residual deficits; R74.8 Abnormal levels of other serum enzymes
CPT/HCPCS: 99285; 96360; 36415; 82550; 83690; 85025; 80053; 81001; 84484; 71045; J7030

== ENCOUNTER → 2018-05-29 | Outpatient (CLI) | payer MEDICARE, OTHER ==
--- NOTE | 2018-05-29 10:15 | RADIOLOGY REPORT (SQ) ---
EXAM DESCRIPTION: CT CHEST WITH; CT ABD/PELVIS WITH IV ONLY COMPLETED DATE/TIME: 05/29/2018 9:11 am; 05/29/2018 9:12 am REASON FOR STUDY: BREAST CA/SECONDARY BONE CA C79.51 SECONDARY MALIGNANT NEOPLASM OF BONE COMPARISON: PET-CT 05/11/2017 Whole-body bone scan 12/10/2017 CT chest abdomen pelvis 09/03/2017, 12/05/2017 CONTRAST TYPE AND DOSE: contrast/concentration: Isovue 350.00 mg/ml; Total Contrast Delivered: 70.0 ml; Total Saline Delivered: 65.0 ml RENAL FUNCTION: Creatinine 1.3 TECHNIQUE: CT scan of the chest performed using helical scanning technique with dynamic intravenous contrast injection. Images reviewed with lung, soft tissue and bone windows. Reconstructed coronal a nd sagittal MPR images reviewed. All images stored on PACS. CT scan of the abdomen and pelvis performed with intravenous and without oral contrastusing helical [place] technique with dynamic intravenous contrast injection. Images reviewed with lung, soft tissu e and bone windows. Reconstructed coronal and sagittal MPR images reviewed. Delayed images for eval uation of the urinary system also acquired and evaluated. All images stored on PACS. All CT scanners at this facility use dose modulation, iterative reconstruction, and/or weight based d osing when appropriate to reduce radiation dose to as low as reasonably achievable (ALARA). [facility]: Dose Right [facility]: CareDose [facility]: Dose Right [facility]: Teradose 4D [facility]: [employer] RADIATION DOSE: CT Rad equipment meets quality standard of care and radiation dose reduction techniq ues were employed. CTDIvol: 5.6 - 9.4 mGy. DLP: 946 mGy-cm. . LIMITATIONS: None. FINDINGS: CHEST: LUNGS AND PLEURA: Minimal bandlike scarring along the right lung apex likely related to supraclavicul ar radiation therapy. No worrisome pulmonary nodules. No focal infiltrates. No pleural effusion. No pneumothorax HILAR AND MEDIASTINAL STRUCTURES: No identified masses or abnormal nodes. HEART AND VASCULAR STRUCTURES: No aneurysm or dissection. No central pulmonary emboli. No pericardi al effusion. Moderate coronary artery calcification. Left-sided pacemaker. HARDWARE: Left-sided pacemaker THYROID AND OTHER SOFT TISSUES: No masses. No adenopathy. BONES: No significant finding. OTHER: No other significant finding. ABDOMEN AND PELVIS: LIVER: Normal size. No masses. No dilated ducts. SPLEEN: Normal size. No focal lesions. PANCREAS: No masses. No significant calcifications. No adjacent inflammation or peripancreatic fluid collections. Pancreatic duct not dilated. GALLBLADDER: No identified stones by CT criteria. No inflammatory changes to suggest cholecystitis. ADRENAL GLANDS: No significant masses or asymmetry. RIGHT KIDNEY AND URETER: No solid masses. No significant calcification. No hydronephrosis or hydroure ter. LEFT KIDNEY AND URETER: No solid masses. No significant calcification. No hydronephrosis or hydrouret er. AORTA AND VESSELS: Heavily calcified abdominal aorta without aneurysm or dissection. 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 BOWEL AND PERITONEAL CAVITY: No masses or inflammatory changes. No free fluid or peritoneal masses. Colonic diverticuli without CT signs of acute diverticulitis APPENDIX: Normal. ABDOMINAL WALL: No masses. Tiny fat containing left inguinal hernia PELVIS: No mass or free fluid. Normal bladder. BONES: Left femur intramedullary nail OTHER: No other significant finding. IMPRESSION: No CT evidence of metastatic breast cancer to the chest abdomen or pelvis. Old right ma stectomy TECHNICAL DOCUMENTATION: JOB ID: [id number] Quality ID # 436: Final reports with documentation of one or more dose reduction techniques (e.g., Au tomated exposure control, adjustment of the mA and/or kV according to patient size, use of iterative reconstruction technique) 2010 [employer]- All Rights Reserved Reading location - IP/workstation name: [email or web address]
--- NOTE | 2018-05-29 13:13 | RADIOLOGY REPORT (SQ) ---
EXAM DESCRIPTION: NM WHOLE BODY BONE SCAN COMPLETED DATE/TIME: 05/29/2018 12:10 pm REASON FOR STUDY: BREAST CA/SECONDARY BONE CA C79.51 SECONDARY MALIGNANT NEOPLASM OF BONE COMPARISON: 12/10/2017 RADIONUCLIDE AND DOSE: 18.15 millicuries Tc99m MDP. The route of agent administration: Intravenous. ADDITIONAL DRUGS AND DOSES: None. TECHNIQUE: Routine delayed images at 3 hours post radionuclide injection acquired of the bony skelet on including anterior and posterior whole-body projections and additional focused images as needed. LIMITATIONS: None. FINDINGS: BONES: There is a persistent area of intense uptake in the mid left femur. There are no n ew areas of abnormal skeletal uptake. KIDNEYS: Symmetric excretion without obstruction. OTHER: No other significant finding. IMPRESSION: Persistent lesion in the left mid femur. No new osseous metastases are seen. COMMENT: Quality measure 147: Current bone scan is compared with any available plain radiographs, p rior bone scans, and CT/MRI. TECHNICAL DOCUMENTATION: JOB ID: [id number] [employer]- All Rights Reserved Reading location - IP/workstation name: [email or web address]
== END ==
LOC: RAD 08:23
PROVIDERS: ATTEND Internal Medicine
DX: C79.51 Secondary malignant neoplasm of bone (principal); C50.411 Malignant neoplasm of upper-outer quadrant of right female breast
CPT/HCPCS: 78306; 71260; 74177; A9561; Q9969

== ENCOUNTER → 2018-08-18 | Outpatient (CLI) | payer MEDICARE, OTHER ==
--- NOTE | 2018-08-18 12:23 | RADIOLOGY REPORT (SQ) ---
EXAM DESCRIPTION: SHOULDER LEFT 2 OR MORE VIEWS COMPLETED DATE/TIME: 08/18/2018 12:04 pm REASON FOR STUDY: PAIN IN LT SHOULDER,SECONDARY MALIGNANT NEOPLASM OF BONE C79.51 SECONDARY MALIGNA NT NEOPLASM OF BONE M25.512 PAIN IN LEFT SHOULDER COMPARISON: None. NUMBER OF VIEWS: Three views. TECHNIQUE: Internal rotation, external rotation, and Y view images acquired of the left shoulder. LIMITATIONS: None. FINDINGS: MINERALIZATION: Normal. BONES: No fracture or dislocation. There is a small sclerotic lesion in the humeral head. JOINTS: No dislocation. VISUALIZED LUNGS AND RIBS: No pneumothorax. No rib fracture. SOFT TISSUES: No radiopaque foreign body. OTHER: No other significant finding. IMPRESSION: No acute abnormality. There is a small sclerotic lesion that may represent a bone islan d. TECHNICAL DOCUMENTATION: JOB ID: [id number] [employer]- All Rights Reserved Reading location - IP/workstation name: [email or web address]
--- NOTE | 2018-08-18 12:24 | RADIOLOGY REPORT (SQ) ---
EXAM DESCRIPTION: CLAVICLE LEFT COMPLETED DATE/TIME: 08/18/2018 12:04 pm REASON FOR STUDY: SECONDARY MALIGNANT NEOPLASM OF BONE,PAIN IN LT SHOULDER C79.51 SECONDARY MALIGNA NT NEOPLASM OF BONE M25.512 PAIN IN LEFT SHOULDER COMPARISON: None. NUMBER OF VIEWS: Two views. TECHNIQUE: Frontal and angled images were acquired of the left clavicle. LIMITATIONS: None. FINDINGS: MINERALIZATION: Normal. BONES: No acute fracture or dislocation. No worrisome bone lesions. SOFT TISSUES: No obvious swelling or foreign body. OTHER: No other significant finding. IMPRESSION: NEGATIVE STUDY OF THE LEFT CLAVICLE. NO RADIOGRAPHIC EVIDENCE OF ACUTE INJURY. TECHNICAL DOCUMENTATION: JOB ID: [id number] [employer]- All Rights Reserved Reading location - IP/workstation name: [email or web address]
== END ==
LOC: OD 11:43
PROVIDERS: ATTEND Physician Assistant Medical
DX: C79.51 Secondary malignant neoplasm of bone (principal); M25.512 Pain in left shoulder

== ENCOUNTER → 2018-11-11 | Outpatient (CLI) | payer MEDICARE, OTHER ==
--- NOTE | 2018-11-11 09:14 | RADIOLOGY REPORT (SQ) ---
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 Images reviewed with lung, soft tissue, and bone windows. Reconstructed coronal and sagittal MPR images revi ewed. All images stored on PACS. All CT scanners at this facility use dose modulation, iterative reconstruction, and/or weight based d osing when appropriate to reduce radiation dose to as low as reasonably achievable (ALARA). [facility]: Dose Right [facility]: CareDose [facility]: Dose Right [facility]: Teradose 4D [facility]: Smart [employer] RADIATION DOSE: CT Rad equipment meets quality standard of care and radiation dose reduction techniq ues were employed. CTDIvol: 7.2 - 10.1 mGy. DLP: 775 mGy-cm.mGy. LIMITATIONS: None. FINDINGS: LOWER CHEST: See separate report of the CT of the chest. NON-CONTRASTED LIVER, SPLEEN, ADRENALS: Evaluation limited by lack of IV contrast. No identified sign ificant masses. PANCREAS: No masses. No peripancreatic inflammatory changes. GALLBLADDER: No identified stones by CT criteria. No inflammatory changes to suggest cholecystitis. RIGHT KIDNEY AND URETER: No suspicious masses. Assessment limited by lack of IV contrast. No signif icant calcifications. No hydronephrosis or hydroureter. LEFT KIDNEY AND URETER: No suspicious masses. Assessment limited by lack of IV contrast. Stable Non obstructing left-sided renal stones, largest measuring 4 mm in the lower pole. Cortical thinning. No hydronephrosis or hydroureter. AORTA AND RETROPERITONEUM: Aortoiliac atherosclerosis with mild focal saccular dilation of the infrar enal aorta measuring up to 2.7 cm. Evaluation for dissection limited secondary to lack of contrast. BOWEL AND PERITONEAL CAVITY: No evidence of intestinal obstruction. No focal bowel wall thickening. Scattered colonic diverticula. APPENDIX: Normal. PELVIS, BLADDER, AND ABDOMINAL WALL:No abnormal masses. No free fluid. Bladder normal. BONES: No acute bony abnormality. Partially visualized left femoral intramedullary skylar. Lower lumba r facet arthropathy. No discrete lytic or blastic lesions. Decreased osseous mineralization. OTHER: No other significant finding. IMPRESSION: 1. No evidence of new metastatic disease within the abdomen or pelvis. 2. No evidence of acute intra-abdominal/pelvic process. COMMENT: Quality ID # 436: Final reports with documentation of one or more dose reduction techniques (e.g., Automated exposure control, adjustment of the mA and/or kV according to patient size, use of iterative reconstruction technique) TECHNICAL DOCUMENTATION: JOB ID: [id number] [employer]- All Rights Reserved Reading location - IP/workstation name: [email or web address]
--- NOTE | 2018-11-11 10:27 | RADIOLOGY REPORT (SQ) ---
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 Images reviewed with lung, soft tissue and bone windows. Reconstructed coronal and sagittal MPR images reviewed. All images st ored on PACS. All CT scanners at this facility use dose modulation, iterative reconstruction, and/or weight based d osing when appropriate to reduce radiation dose to as low as reasonably achievable (ALARA). [facility]: Dose Right [facility]: CareDose [facility]: Dose Right [facility]: Teradose 4D [facility]: [employer] RADIATION DOSE: mGy. LIMITATIONS: No technical limitations. FINDINGS: LUNGS AND PLEURA: Unchanged right apical scarring and ground-glass attenuation, likely benita atment related. No new consolidation. No pleural effusion or pneumothorax. No new suspicious nodul es or masses. HILAR AND MEDIASTINAL STRUCTURES: No identified masses or abnormal nodes. No obvious aneurysm. HEART AND VASCULAR STRUCTURES: Scattered three-vessel coronary atherosclerosis. No pericardial effus ion. Normal heart size. UPPER ABDOMEN: See separate report of the CT of the abdomen. THYROID AND OTHER SOFT TISSUES: No masses. No adenopathy. Evidence of prior right mastectomy. BONES: No acute bony abnormality. No suspicious lytic or blastic osseous lesions. HARDWARE: Left-sided cardiac pacer with leads in the right atrium and right ventricle. OTHER: No other significant findings. IMPRESSION: No evidence of new metastatic disease within the thorax. No evidence of acute intrathoracic process. TECHNICAL DOCUMENTATION: JOB ID: [id number] Quality ID # 436: Final reports with documentation of one or more dose reduction techniques (e.g., Au tomated exposure control, adjustment of the mA and/or kV according to patient size, use of iterative reconstruction technique) 2010 [employer]- All Rights Reserved Reading location - IP/workstation name: [email or web address]
--- NOTE | 2018-11-11 16:43 | RADIOLOGY REPORT (SQ) ---
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 The route of agent administration: Intravenous. ADDITIONAL DRUGS AND DOSES: None. TECHNIQUE: Routine delayed images at 3 hour post radionuclide injection acquired of the bony skeleto n including anterior and posterior whole-body projections and additional focused images as needed. LIMITATIONS: None. FINDINGS: BONES: Persistent uptake within the mid left femur. There is increased uptake within the proximal and distal aspect of the femur compared to prior exams. No new focal areas of increased act ivity within the visualized axial skeleton. Photopenia over the left chest corresponding to known pa cer. Additional uptake scattered at the ankles and feet bilaterally, likely degenerative and similar to prior. . KIDNEYS: Symmetric excretion without obstruction. OTHER: No other significant finding. IMPRESSION: 1. Increased uptake within the left femur, now involving the proximal and distal aspect . Findings suggestive of worsening osseous metastatic disease although hardware complications such a s infection or loosening might have a similar appearance. Consider correlation with plain film or cr oss-sectional imaging. 2. No focal new areas of increased uptake to suggest additional metastatic deposits. COMMENT: Quality measure 147: Current bone scan is compared with any available plain radiographs, p rior bone scans, and CT/MRI. TECHNICAL DOCUMENTATION: JOB ID: [id number] [employer]- All Rights Reserved Reading location - IP/workstation name: [email or web address]
== END ==
LOC: RAD 08:07
PROVIDERS: ATTEND Physician Assistant Medical
DX: C50.411 Malignant neoplasm of upper-outer quadrant of right female breast (principal); K57.30 Diverticulosis of large intestine without perforation or abscess without bleeding
CPT/HCPCS: 78306; 71250; 74176; A9561; Q9969

== ENCOUNTER → 2018-11-18 | Outpatient (CLI) | payer MEDICARE, OTHER ==
--- NOTE | 2018-11-18 13:41 | RADIOLOGY REPORT (SQ) ---
EXAM DESCRIPTION: FEMUR BILATERAL 2 VIEWS COMPLETED DATE/TIME: 11/18/2018 10:57 am REASON FOR STUDY: SECONDARY BONE CA (C79.51) C79.51 SECONDARY MALIGNANT NEOPLASM OF BONE COMPARISON: CT left lower extremity 05/07/2017 NUMBER OF VIEWS: Two views. TECHNIQUE: Two radiographic images acquired of the right and left femur to include hip and knee in a t least one projection. LIMITATIONS: None. FINDINGS: On the left there is a persistent and expanded lytic lesion involving the posterolateral m idshaft of the left femur measuring 5.3 cm in length compared to 3.3 cm on the previous CT scan. The lesion is transfixed by an intramedullary skylar extending from the greater trochanteric region to the distal femur. No clearly defined associated pathologic fracture. On the right the femoral shaft is intact with no lytic or blastic changes. 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 Transfixed by an intramedullary skylar ex tending from the greater trochanteric region to the distal femur. No other lytic lesions identified. No metastatic involvement of the right femur. TECHNICAL DOCUMENTATION: JOB ID: [id number] [employer]- All Rights Reserved Reading location - IP/workstation name: [email or web address]
--- NOTE | 2018-11-18 13:45 | RADIOLOGY REPORT (SQ) ---
EXAM DESCRIPTION: HIP LEFT AP/LATERAL COMPLETED DATE/TIME: 11/18/2018 10:57 am REASON FOR STUDY: SECONDARY BONE CA (C79.51) C79.51 SECONDARY MALIGNANT NEOPLASM OF BONE COMPARISON: None. NUMBER OF VIEWS: Two views. TECHNIQUE: AP pelvis and additional frog-leg view of the left hip. LIMITATIONS: None. FINDINGS: Orthopedic pin and intramedullary skylar remain in good position. Hip joint well maintained. Femoral head normal in contour. No lytic or blastic lesions involving the hip. Previous bone scan was positive at this level. IMPRESSION: Orthopedic hardware in good position. Femoral head normal in contour. Hip joint well m aintained. No lytic blastic changes. TECHNICAL DOCUMENTATION: JOB ID: [id number] [facility] [employer]- All Rights Reserved Reading location - IP/workstation name: [email or web address]
== END ==
LOC: RAD 09:36
PROVIDERS: ATTEND Physician Assistant Medical
DX: C79.51 Secondary malignant neoplasm of bone (principal)
CPT/HCPCS: 73552

== ENCOUNTER → 2019-02-23 | Outpatient (CLI) | payer MEDICARE, OTHER ==
--- NOTE | 2019-02-23 14:29 | RADIOLOGY REPORT (SQ) ---
EXAM DESCRIPTION: NM WHOLE BODY BONE SCAN COMPLETED DATE/TIME: 02/23/2019 12:48 pm REASON FOR STUDY: BREAST CA (C50.411) C50.411 MALIG NEOPLM OF UPPER-OUTER QUADRANT OF RIGHT FEMALE COMPARISON: Bone scan 11/11/2018 RADIONUCLIDE AND DOSE: 20 millicuries Tc99m HDP. The route of agent administration: Intravenous. ADDITIONAL DRUGS AND DOSES: None. TECHNIQUE: Routine delayed images at 3 hours post radionuclide injection acquired of the bony skelet on including anterior and posterior whole-body projections and additional focused images as needed. LIMITATIONS: None. FINDINGS: BONES: There is persistent uptake in the left femur that is slightly less intense than on the earlier study. Degenerative uptake in the feet and ankles. No other significant abnormal uptake in the spine, ribs, calvarium, or elsewhere. KIDNEYS: Symmetric excretion without obstruction. OTHER: No other significant finding. IMPRESSION: Persistent uptake in the left femur has become slightly less intense. This could repres ent metastatic disease or inflammatory process related to the hardware. COMMENT: Quality measure 147: Current bone scan is compared with any available plain radiographs, p rior bone scans, and CT/MRI. TECHNICAL DOCUMENTATION: JOB ID: [id number] [employer]- All Rights Reserved Reading location - IP/workstation name: [email or web address]
--- NOTE | 2019-02-23 14:41 | RADIOLOGY REPORT (SQ) ---
EXAM DESCRIPTION: CT HEAD WITHOUT COMPLETED DATE/TIME: 02/23/2019 7:46 am REASON FOR STUDY: BREAST CA (C50.411) C50.411 MALIG NEOPLM OF UPPER-OUTER QUADRANT OF RIGHT FEMALE COMPARISON: None. TECHNIQUE: Axial images acquired through the brain without intravenous contrast. Images reviewed wi th bone, brain and subdural windows. Additional sagittal and coronal reconstructions were generated. Images stored on PACS. All CT scanners at this facility use dose modulation, iterative reconstruction, and/or weight based d osing when appropriate to reduce radiation dose to as low as reasonably achievable (ALARA). [facility]: Dose Right [facility]: CareDose [facility]: Dose Right [facility]: Teradose 4D [facility]: [employer] RADIATION DOSE: CT Rad equipment meets quality standard of care and radiation dose reduction techniq ues were employed. CTDIvol: 48.6 mGy. DLP: 881 mGy-cm. LIMITATIONS: None. FINDINGS: VENTRICLES: Normal size and contour. The cisterns are patent. CEREBRUM: No masses. No hemorrhage. No midline shift. No evidence for acute infarction. Normal gra y/white matter differentiation. No areas of low density in the white matter. CEREBELLUM: No masses. No hemorrhage. No alteration of density. No evidence for acute infarction. EXTRAAXIAL SPACES: No fluid collections. No masses. ORBITS AND GLOBE: No intra- or extraconal masses. Normal contour of globe without masses. CALVARIUM: No fracture. Pneumatization of the Mary chris, normal anatomic variant. PARANASAL SINUSES: Small mucous retention cyst or polyp in the right sphenoid sinus. Martina bullosa seen in the middle turbinates bilaterally. Small 3.5 mm osteoma right ethmoid sinus. SOFT TISSUES: No mass or hematoma. OTHER: Atherosclerotic changes involving the cavernous portion of the internal carotid arteries and the visualized intracranial vertebral arteries. IMPRESSION: 1. No acute intracranial abnormality. 2. Additional findings as above. EVIDENCE OF ACUTE STROKE: NO. COMMENT: Quality ID # 436: Final reports with documentation of one or more dose reduction techniques (e.g., Automated exposure control, adjustment of the mA and/or kV according to patient size, use of iterative reconstruction technique) TECHNICAL DOCUMENTATION: JOB ID: [id number] [employer]- All Rights Reserved Reading location - IP/workstation name: [email or web address]
--- NOTE | 2019-02-24 09:52 | RADIOLOGY REPORT (SQ) ---
EXAM DESCRIPTION: CT CHEST WITHOUT; CT ABD/PELVIS NO ORAL OR IV COMPLETED DATE/TIME: 02/24/2019 8:44 am; 02/23/2019 7:53 am REASON FOR STUDY: BREAST CA (C50.411) C50.411 MALIG NEOPLM OF UPPER-OUTER QUADRANT OF RIGHT FEMALE COMPARISON: 11/11/2018 TECHNIQUE: CT scan of the chest performed without intravenous contrast using helical scanning techni que. Images reviewed with lung, soft tissue and bone windows. Reconstructed coronal and sagittal MPR images reviewed. All images stored on PACS. All CT scanners at this facility use dose modulation, iterative reconstruction, and/or weight based d osing when appropriate to reduce radiation dose to as low as reasonably achievable (ALARA). [facility]: Dose Right [facility]: CareDose [facility]: Dose Right [facility]: [employer] [facility]: [employer] RADIATION DOSE: CT Rad equipment meets quality standard of care and radiation dose reduction techniq ues were employed. CTDIvol: 7.0 - 9.8 mGy. DLP: 841 mGy-cm. mGy. LIMITATIONS: None. FINDINGS: AXILLAE: No adenopathy. CHEST WALL: No masses. No subcutaneous air. LUNGS: Chronic airspace disease in the right upper lobe. No pulmonary nodules or acute consolidation . No pleural effusions. PLEURA: No effusions. No calcifications. THYROID: No masses or significant asymmetry. HILAR AND MEDIASTINAL STRUCTURES: No identified masses or abnormal nodes. AORTA AND GREAT VESSELS: No aneurysm. HEART: No pericardial effusion. HARDWARE AND LIFELINES: Battery pack and leads are in place. BONES: No significant finding. OTHER: No other significant finding. IMPRESSION: Chronic airspace disease in the right upper lobe stable from November. No evidence of metas tatic disease in the chest. COMPARISON: None. TECHNIQUE: CT scan of the abdomen and pelvis performed without intravenous contrast and withoutoral contrast using helical scanning technique with dynamic intravenous contrast injection. Images review ed with lung, soft tissue and bone windows. Reconstructed coronal and sagittal MPR images reviewed. All images stored on PACS. All CT scanners at this facility use dose modulation, iterative reconstruction, and/or weight based d osing when appropriate to reduce radiation dose to as low as reasonably achievable (ALARA). [facility]: Dose Right [facility]: [employer] [facility]: Dose Right [facility]: [employer] 4D [facility]: [employer] RADIATION DOSE: CT Rad equipment meets quality standard of care and radiation dose reduction techniq ues were employed. CTDIvol: 7.0 - 9.8 mGy. DLP: 841 mGy-cm.mGy. LIMITATIONS: None. FINDINGS: LIVER: Normal size. No masses. No dilated ducts. SPLEEN: Normal size. No focal lesions. PANCREAS: No masses. No significant calcifications. No adjacent inflammation or peripancreatic flui d collections. Pancreatic duct not dilated. GALLBLADDER: No identified stones by CT criteria. No inflammatory changes to suggest cholecystitis. ADRENAL GLANDS: No significant masses or asymmetry. RIGHT KIDNEY AND URETER: No solid masses. Assessment limited by lack of IV contrast. No significant c alcification. No hydronephrosis or hydroureter. LEFT KIDNEY AND URETER: Small nonobstructing left renal calculi. No solid masses. No hydronephrosis . AORTA AND VESSELS: No aneurysm. RETROPERITONEUM: No retroperitoneal adenopathy, hemorrhage or masses. APPENDIX: Normal. LARGE AND SMALL BOWEL: No dilatation. No masses. No wall thickening. ABDOMINAL WALL: No hernia or masses. PERITONEAL CAVITY: No free air. No free fluid. No peritoneal implants or masses. PELVIS: No mass or free fluid. Normal bladder. BONES: No significant or acute findings. OTHER: No other significant finding. IMPRESSION: No evidence of metastatic disease in the abdomen or pelvis. TECHNICAL DOCUMENTATION: JOB ID: [id number] Quality ID # 436: Final reports with documentation of one or more dose reduction techniques (e.g., Au tomated exposure control, adjustment of the mA and/or kV according to patient size, use of iterative reconstruction technique) 2010 [employer]- All Rights Reserved Reading location - IP/workstation name: [email or web address]
--- NOTE | 2019-02-24 09:52 | RADIOLOGY REPORT (SQ) ---
EXAM DESCRIPTION: CT CHEST WITHOUT; CT ABD/PELVIS NO ORAL OR IV COMPLETED DATE/TIME: 02/24/2019 8:44 am; 02/23/2019 7:53 am REASON FOR STUDY: BREAST CA (C50.411) C50.411 MALIG NEOPLM OF UPPER-OUTER QUADRANT OF RIGHT FEMALE COMPARISON: 11/11/2018 TECHNIQUE: CT scan of the chest performed without intravenous contrast using helical scanning techni que. Images reviewed with lung, soft tissue and bone windows. Reconstructed coronal and sagittal MPR images reviewed. All images stored on PACS. All CT scanners at this facility use dose modulation, iterative reconstruction, and/or weight based d osing when appropriate to reduce radiation dose to as low as reasonably achievable (ALARA). [facility]: Dose Right [facility]: CareDose [facility]: Dose Right [facility]: [employer] (PRIMP) [facility]: [employer] RADIATION DOSE: CT Rad equipment meets quality standard of care and radiation dose reduction techniq ues were employed. CTDIvol: 7.0 - 9.8 mGy. DLP: 841 mGy-cm. mGy. LIMITATIONS: None. FINDINGS: AXILLAE: No adenopathy. CHEST WALL: No masses. No subcutaneous air. LUNGS: Chronic airspace disease in the right upper lobe. No pulmonary nodules or acute consolidation . No pleural effusions. PLEURA: No effusions. No calcifications. THYROID: No masses or significant asymmetry. HILAR AND MEDIASTINAL STRUCTURES: No identified masses or abnormal nodes. AORTA AND GREAT VESSELS: No aneurysm. HEART: No pericardial effusion. HARDWARE AND LIFELINES: Battery pack and leads are in place. BONES: No significant finding. OTHER: No other significant finding. IMPRESSION: Chronic airspace disease in the right upper lobe stable from November. No evidence of metas tatic disease in the chest. COMPARISON: None. TECHNIQUE: CT scan of the abdomen and pelvis performed without intravenous contrast and withoutoral contrast using helical scanning technique with dynamic intravenous contrast injection. Images review ed with lung, soft tissue and bone windows. Reconstructed coronal and sagittal MPR images reviewed. All images stored on PACS. All CT scanners at this facility use dose modulation, iterative reconstruction, and/or weight based d osing when appropriate to reduce radiation dose to as low as reasonably achievable (ALARA). [facility]: Dose Right [facility]: SureCare [facility]: Dose Right [facility]: [employer] 4D [facility]: [employer] RADIATION DOSE: CT Rad equipment meets quality standard of care and radiation dose reduction techniq ues were employed. CTDIvol: 7.0 - 9.8 mGy. DLP: 841 mGy-cm.mGy. LIMITATIONS: None. FINDINGS: LIVER: Normal size. No masses. No dilated ducts. SPLEEN: Normal size. No focal lesions. PANCREAS: No masses. No significant calcifications. No adjacent inflammation or peripancreatic flui d collections. Pancreatic duct not dilated. GALLBLADDER: No identified stones by CT criteria. No inflammatory changes to suggest cholecystitis. ADRENAL GLANDS: No significant masses or asymmetry. RIGHT KIDNEY AND URETER: No solid masses. Assessment limited by lack of IV contrast. No significant c alcification. No hydronephrosis or hydroureter. LEFT KIDNEY AND URETER: Small nonobstructing left renal calculi. No solid masses. No hydronephrosis . AORTA AND VESSELS: No aneurysm. RETROPERITONEUM: No retroperitoneal adenopathy, hemorrhage or masses. APPENDIX: Normal. LARGE AND SMALL BOWEL: No dilatation. No masses. No wall thickening. ABDOMINAL WALL: No hernia or masses. PERITONEAL CAVITY: No free air. No free fluid. No peritoneal implants or masses. PELVIS: No mass or free fluid. Normal bladder. BONES: No significant or acute findings. OTHER: No other significant finding. IMPRESSION: No evidence of metastatic disease in the abdomen or pelvis. TECHNICAL DOCUMENTATION: JOB ID: [id number] Quality ID # [id number]: Final reports with documentation of one or more dose reduction techniques (e.g., Au tomated exposure control, adjustment of the mA and/or kV according to patient size, use of iterative reconstruction technique) 2010 [employer]- All Rights Reserved Reading location - IP/workstation name: [email or web address]
== END ==
LOC: RAD 07:26
PROVIDERS: ATTEND Physician Assistant Medical
DX: C50.411 Malignant neoplasm of upper-outer quadrant of right female breast (principal)
CPT/HCPCS: 78306; 70450; 71250; 74176; A9561; Q9969

== ENCOUNTER 2019-04-18 11:16 | Inpatient (IN) | payer MEDICARE, OTHER ==
[2019-04-18] MEDS ORDERED: IPRATROPIUM/ALBUTEROL 0.5-2.5 MG/3 ML AMPUL NEB ONE (11:43)
--- NOTE | 2019-04-18 11:45 | ER Document Report ---
ED Medical Screen (RME) - General Chief Complaint: Shortness Of Breath Stated Complaint: SHORTNESS OF BREATH Time Seen by Provider: 04/18/19 11:40 Primary Care Provider: FELIPE BRAGA PA-C [Primary Care Provider] - Follow up as needed TRAVEL OUTSIDE OF THE [place] IN LAST 30 DAYS: No - HPI Notes: 04/18/19 11:45 79 year old female with history of stage 4 metastatic breast cancer to the ED with C/O cough, shortness of breath and chest pain that has gotten worse since yesterday. Daughter who is with the patient states that she was just discharged from the hospital with pneumonia. I have performed a medical screening exam on the patient and determined she will need further management by mainside provider. I have placed initial orders to help expedite her care. - Related Data Allergies/Adverse Reactions: No Known Allergies Allergy (Verified 04/18/19 11:41) Past Medical History - Past Medical History Cardiac Medical History: Reports: Hx Congestive Heart Failure, Hx Coronary Artery Disease, Hx Hypercholesterolemia, Hx Hypertension Denies: Hx Heart Attack Pulmonary Medical History: Reports: Hx Pneumonia - A CHILD Denies: Hx Asthma, Hx Bronchitis, Hx COPD Neurological Medical History: Reports: Hx Cerebrovascular Accident - LEFT EYE. Denies: Hx Seizures Endocrine Medical History: Reports: Hx Diabetes Mellitus Type 1 Renal/ Medical History: Denies: Hx Peritoneal Dialysis Malignancy Medical History: Reports: Hx Breast Cancer Musculoskeltal Medical History: Denies Hx Arthritis, Reports Hx Gout Psychiatric Medical History: Reports: Hx Depression Past Surgical History: Reports: Hx Breast Surgery - Mastectomy, Hx Cardiac Surgery - def, Hx Mastectomy - right side, Hx Tubal Ligation - Immunizations Hx Diphtheria, Pertussis, Tetanus Vaccination: Yes - UNSURE WHEN Physical Exam - Vital signs Vitals: Temp Pulse Resp BP Pulse Ox 97.6 F 88 16 145/75 H 97 04/18/19 11:23 04/18/19 11:23 04/18/19 11:23 04/18/19 11:23 04/18/19 11:23 Course - Vital Signs Vital signs: Temp Pulse Resp BP Pulse Ox 97.6 F 88 16 145/75 H 97 04/18/19 11:23 04/18/19 11:23 04/18/19 11:23 04/18/19 11:23 04/18/19 11:23 Doctor's Discharge - Discharge Referrals: FELIPE BRAGA, PAAnamariaC [Primary Care Provider] - Follow up as needed
--- NOTE | 2019-04-18 12:24 | ER Document Report ---
ED Respiratory Problem - General Chief Complaint: Shortness Of Breath Stated Complaint: SHORTNESS OF BREATH Time Seen by Provider: 04/18/19 11:40 Notes: Ms. Lugo is a 79 yo female with past medical history of COPD, CHF w/ EF 17% and fibrillator in place, metastatic breast cancer with bone mets brought into the ED by daughter for shortness of breath. Patient states her shortness of breath can yesterday but acutely worsened this morning. The daughter who is her primary prefitter states that she was diagnosed with pneumonia over a week ago and then later told she had enterococci positive blood cultures. When the patient woke up pale this morning with increased shortness of breath, and concern for pneumonia, she is brought in for evaluation. Patient did have both her flu and Pneumovax vaccine over a week ago. Patient endorses changing cough without any significant sputum production. No fevers or chills. No orthopnea however she does endorse some dyspnea with exertion. She takes Lasix 20 mg a day and they do not allow her to take in more than 3 regular size water bottles daily. Patient denies any chest pain, abdominal pain, nausea vomiting or diarrhea. However her daughter states that since yesterday and today, she is had decreased p.o. intake in terms of food. Patient endorses decreased appetite. TRAVEL OUTSIDE OF THE [place] IN LAST 30 DAYS: No - Related Data Allergies/Adverse Reactions: No Known Allergies Allergy (Verified 04/18/19 11:41) Past Medical History - Social History Smoking Status: Current Some Day Smoker Chew tobacco use (# tins/day): No Frequency of alcohol use: None Drug Abuse: None Family History: Reviewed & Not Pertinent Patient has suicidal ideation: No Patient has homicidal ideation: No - Past Medical History Cardiac Medical History: Reports: Hx Congestive Heart Failure, Hx Coronary Artery Disease, Hx Hypercholesterolemia, Hx Hypertension Denies: Hx Heart Attack Pulmonary Medical History: Reports: Hx Pneumonia - A CHILD Denies: Hx Asthma, Hx Bronchitis, Hx COPD Neurological Medical History: Reports: Hx Cerebrovascular Accident - LEFT EYE. Denies: Hx Seizures Endocrine Medical History: Reports: Hx Diabetes Mellitus Type 1 Renal/ Medical History: Denies: Hx Peritoneal Dialysis Malignancy Medical History: Reports: Hx Breast Cancer Musculoskeletal Medical History: Denies Hx Arthritis, Reports Hx Gout Psychiatric Medical History: Reports: Hx Depression Past Surgical History: Reports: Hx Breast Surgery - Mastectomy, Hx Cardiac Surgery - def, Hx Mastectomy - right side, Hx Tubal Ligation - Immunizations Hx Diphtheria, Pertussis, Tetanus Vaccination: Yes - UNSURE WHEN Hx Pneumococcal Vaccination: 04/04/13 Review of Systems - Review of Systems Constitutional: See HPI EENT: No symptoms reported Cardiovascular: See HPI Respiratory: See HPI Gastrointestinal: No symptoms reported Genitourinary: No symptoms reported Female Genitourinary: No symptoms reported Musculoskeletal: No symptoms reported Skin: No symptoms reported Hematologic/Lymphatic: No symptoms reported Neurological/Psychological: No symptoms reported Physical Exam - Vital signs Vitals: Temp Pulse Resp BP Pulse Ox 97.6 F 88 16 145/75 H 97 04/18/19 11:23 04/18/19 11:23 04/18/19 11:23 04/18/19 11:23 04/18/19 11:23 Interpretation: Normal - General General appearance: Appears well, Alert - HEENT Head: Normocephalic, Atraumatic Eyes: Normal Pupils: PERRL - Respiratory Respiratory status: No respiratory distress Chest status: Nontender Breath sounds: Decreased air movement - Throughout, Rales - in left lower lobe, Wheezing - in left lower lobe Chest palpation: Normal - Cardiovascular Rhythm: Regular Heart sounds: Normal auscultation Murmur: No - Abdominal Inspection: Normal Distension: No distension Bowel sounds: Normal Tenderness: Nontender Organomegaly: No organomegaly - Back Back: Normal, Nontender - Extremities General upper extremity: Normal inspection, Nontender, Normal color, Normal ROM, Normal temperature General lower extremity: Normal inspection, Nontender, Normal color, Normal ROM, Normal temperature, Normal weight bearing. No: Jessie's sign - Neurological Neuro grossly intact: Yes Cognition: Normal Orientation: AAOx4 Mechelle Coma Scale Eye Opening: Spontaneous [place]ec[place]le Coma Scale Verbal: Oriented Mechelle Coma Scale Motor: Obeys Commands [place] Coma Scale Total: 15 Speech: Normal Motor strength normal: LUE, RUE, LLE, RLE Sensory: Normal - Psychological Associated symptoms: Normal affect, Normal mood - Skin Skin Temperature: Warm Skin Moisture: Dry Skin Color: Normal Course - Re-evaluation Re-evalutation: Patient is chronically ill-appearing but nontoxic. Initial vitals notable for mildly elevated blood pressure. EKG nonischemic essentially unchanged from prior. CBC does not show significant leukocytosis or left shift. H&H is stable. CMP notable for creatinine of 2.34 and the only prior for comparison is over a year ago. Initial troponin is positive at 0.205. Patient was ordered for aspirin. This could be related to volume overload as the patient's chest x-ray does show evidence of pulmonary edema as well as an elevated BNP greater than 26,000. Patient ordered for p.o. aspirin here in ED. Patient also given Lasix 40 mg IV push. No significant lactic acidosis. No obvious fever, new oxygen requirement to suggest hypoxia, or significant leukocytosis/lactic acidosis to suggest pneumonia. Therefore broad-spectrum antibiotics were not administered. 04/18/19 16:50 Paged to multiple resaw operator speak for Dr. Catalan. Spoke to Dr. Catalan. Patient is a patient of a different Catalan, not Angelica Catalan. 04/18/19 17:00 Called and spoke to Don. Plan to admit pt himself to medical floor. His attending is Oscar. Repeat trop 0.199. Pt's Cr will not allow CTA, so VQ ordered. 04/18/19 17:32 Patient clarified further, she is confident that Dr. Angelica Catalan is her physician. 04/18/19 17:[address] Catalan. Would prefer the patient be admitted to IMCU. He also requested that the patient be ordered for CT chest without IV contrast. Order has been placed. Patient evaluated by Dr. Perea prior to her going to her upstairs bed. He agrees with medical management and gentle diuresis. Patient already received Lasix. She likely will need a VQ scan given her creatinine and her increased risk for PE with the active cancer however there is only diet in the hospital for 1 VQ scan and the patient's creatinine is elevated. Another patient in department who is not being admitted is actively getting the V/Q. Patient V/Q could be repeated tomorrow when more diet is acquired. - Vital Signs Vital signs: Temp Pulse Resp BP Pulse Ox 98.2 F 88 18 130/81 H 100 04/18/19 18:13 04/18/19 11:41 04/18/19 19:05 04/18/19 19:05 04/18/19 19:05 - Laboratory Result Diagrams: 04/18/19 12:54 04/18/19 12:54 Laboratory results interpreted by me: 12/04/18/19 04/18/19 12:54 12:54 12:54 RBC 2.86 L Hgb 10.1 L Hct 29.6 L MCV 104 H MCH 35.2 H RDW 15.9 H Plt Count 136 L BUN 46 H Creatinine 2.34 H Est GFR ( Amer) 24 L Est GFR (MDRD) Non-Af 20 L Calcium 10.4 H NT-Pro-B Natriuret Pep 12667 H Albumin 3.4 L - EKG Interpretation by Me EKG shows normal: Sinus rhythm, Intervals, ST-T Waves Rate: Normal Rhythm: NSR [place]/QRS: Left axis deviation, LBBB When compared to previous EKG there are: No significant change Critical Care Note - Critical Care Note Total time excluding time spent on procedures (mins): 35 - Multisyllable etiologies considered including infectious, Cardiologic, and pulmonary. Patient does have evidence of NSTEMI. Discussion with multiple consultants and hospitalist. Discharge - Discharge Clinical Impression: Pulmonary vascular congestion Congestive heart failure (CHF) Qualifiers: Heart failure type: unspecified Heart failure chronicity: acute Qualified Code(s): I50.9 - Heart failure, unspecified Dyspnea Qualifiers: Dyspnea type: shortness of breath Qualified Code(s): R06.02 - Shortness of breath Condition: Fair Disposition: ADMITTED INPATIENT Admitting Provider: [facility] Admitted: [facility]
[2019-04-18 13:12] LABS: ABSOLUTE EOSINOPHILS # (AUTO) 0.1 10^3/uL (0.0-0.6); ABSOLUTE LYMPHOCYTES (AUTO) 1.1 10^3/uL (0.5-4.7); ABSOLUTE MONOCYTES (AUTO) 0.1 10^3/uL (0.1-1.4); ABSOLUTE NEUT (AUTO) 2.6 10^3/uL (1.7-8.2); EOSINOPHILS % (AUTO) 2.8 % (0-6); HEMATOCRIT 29.6 % (36.0-47.0); HEMOGLOBIN 10.1 g/dL (12.0-15.5); LYMPHOCYTES % (AUTO) 26.9 % (13-45); MEAN CORPUSCULAR HEMOGLOBIN 35.2 pg (27.0-33.4); MEAN CORPUSCULAR VOLUME 104 fl (80-97); MONOCYTES % (AUTO) 3.3 % (3-13); PLATELET COUNT 136 10^3/uL (150-450); RED BLOOD COUNT 2.86 10^6/uL (3.72-5.28); RED CELL DISTRIBUTION WIDTH 15.9 % (11.5-14.0); TOTAL CELLS COUNTED % (AUTO) 100 %
[2019-04-18 13:30] LABS: A TYPE INFLUENZA AG NEGATIVE (NEGATIVE); B INFLUENZA AG NEGATIVE (NEGATIVE)
[2019-04-18 13:33] LABS: ALBUMIN 3.4 g/dL (3.5-5.0); ALKALINE PHOSPHATASE 82 U/L (38-126); ANION GAP 9 (5-19); ASPARTATE AMINO TRANSFERASE 33 U/L (14-36); BILIRUBIN,DIRECT 0.2 mg/dL (0.0-0.4); BILIRUBIN,TOTAL 0.7 mg/dL (0.2-1.3); BLOOD UREA NITROGEN 46 mg/dL (7-20); CALCIUM 10.4 mg/dL (8.4-10.2); CARBON DIOXIDE 27 mmol/L (22-30); CHLORIDE 103 mmol/L (98-107); GLUCOSE 86 mg/dL (75-110); POTASSIUM 4.2 mmol/L (3.6-5.0); TOTAL PROTEIN 6.4 g/dL (6.3-8.2)
--- NOTE | 2019-04-18 14:04 | RADIOLOGY REPORT (SQ) ---
EXAM DESCRIPTION: CHEST 2 VIEWS COMPLETED DATE/TIME: 04/18/2019 1:40 pm REASON FOR STUDY: cough, chest pain COMPARISON: 2013. CT chest from February. TECHNIQUE: Frontal and lateral radiographic views of the chest acquired. NUMBER OF VIEWS: Two view. LIMITATIONS: None. FINDINGS: LUNGS AND PLEURA: Mild left pleural effusion. MEDIASTINUM AND HILAR STRUCTURES: Stable contours. HEART AND VASCULAR STRUCTURES: Cardiac enlargement. Minimal central vascular congestion. BONES: Osteopenic without fracture. HARDWARE: None in the chest. OTHER: No other significant finding. IMPRESSION: Cardiomegaly. Minimal vascular congestion and trace pleural fluid. TECHNICAL DOCUMENTATION: JOB ID: [id number] [employer]- All Rights Reserved Reading location - IP/workstation name: [email or web address]
--- NOTE | 2019-04-18 15:46 | EKG REPORT ---
SEVERITY:- ABNORMAL ECG - SINUS RHYTHM PROBABLE LEFT ATRIAL ABNORMALITY LEFT BUNDLE BRANCH BLOCK : Confirmed by: Shayne Varela MD 18-Apr-2019 15:45:57
[2019-04-18] MEDS ORDERED: ASPIRIN 81 MG TABLET, CHEWABLE PO ONE (15:55)
[2019-04-18] MEDS ORDERED: FUROSEMIDE INJ/PF 20 MG/2 ML SDV IV ONE (16:42)
[2019-04-18] MEDS ORDERED: ACETAMINOPHEN 325 MG TABLET PO PRN (17:44)
[2019-04-18] MEDS ORDERED: IPRATROPIUM/ALBUTEROL 0.5-2.5 MG/3 ML AMPUL NEB PRN (17:44)
--- NOTE | 2019-04-18 19:08 | RADIOLOGY REPORT (SQ) ---
EXAM DESCRIPTION: CT CHEST WITHOUT COMPLETED DATE/TIME: 04/18/2019 5:59 pm REASON FOR STUDY: volume overload, requested by PMD/admitting hosp COMPARISON: 02/23/2019 TECHNIQUE: CT scan performed of the chest without intravenous contrast. Images reviewed with lung, soft tissue and bone windows. Reconstructed coronal and sagittal MPR images reviewed. All images st ored on PACS. All CT scanners at this facility use dose modulation, iterative reconstruction, and/or weight based d osing when appropriate to reduce radiation dose to as low as reasonably achievable (ALARA). [facility]: Dose Right [facility]: CareDose [facility]: Dose Right [facility]: [employer] 4D [facility]: [employer] RADIATION DOSE: CT Rad equipment meets quality standard of care and radiation dose reduction techniq ues were employed. CTDIvol: 11.1 mGy. DLP: 378 mGy-cm. mGy. LIMITATIONS: No technical limitations. FINDINGS: LUNGS AND PLEURA: Moderate bilateral pleural effusions. Mild basilar subsegmental atelect asis. Similar chronic interstitial changes in the right upper lobe. Mild interlobular septal thicke johnathan which is new compared with the prior exam. No pneumothorax. No pulmonary masses. HILAR AND MEDIASTINAL STRUCTURES: Similar nodes. No obvious aneurysm. HEART AND VASCULAR STRUCTURES: No aneurysm. No pericardial effusion. UPPER ABDOMEN: No acute findings. Limited exam. THYROID AND OTHER SOFT TISSUES: No masses. No adenopathy. BONES: No acute finding. HARDWARE: Cardiac defibrillator. OTHER: No other significant findings. IMPRESSION: Moderate bilateral pleural effusions. Mild basilar subsegmental atelectasis. Similar c hronic interstitial changes in the right upper lobe. Mild interlobular septal thickening which is ne w compared with the prior exam. No pneumothorax. No pulmonary masses. TECHNICAL DOCUMENTATION: JOB ID: [id number] Quality ID # [id number]: Final reports with documentation of one or more dose reduction techniques (e.g., Au tomated exposure control, adjustment of the mA and/or kV according to patient size, use of iterative reconstruction technique) 2010 [employer]- All Rights Reserved Reading location - IP/workstation name: [email or web address]
[2019-04-18 19:38] LABS: CREATINE KINASE MB 1.9 ng/mL (<4.55)
[2019-04-18 19:42] LABS: TROPONIN I 0.233 ng/mL
--- NOTE | 2019-04-18 21:00 | PDOC CONSULTATION ---
Consultation Consult Date: 04/18/19 Provider Consulted: FRANK OQUENDO Consult reason:: Congestive heart failure History of Present Illness Admission Date/PCP: 04/18/19 17:12 FLAVIO MONTANEZ MD Patient complains of: Shortness of breath History of Present Illness: ROXANE RYAN is a 79 year old female With the following active problems 1 chronic systolic congestive heart failure 2. Dilated cardiomyopathy-nonischemic 3. Left-sided implantable cardioverter defibrillator-tachycardia therapy turned (reported by patient) 4. Breast cancer with metastasis to left femur 5. Systemic hypertension 79-year-old lady who presents to the hospital with worsening dyspnea and mild le ft-sided pleuritic chest pain. No prior history of coronary artery disease. Is not clear to me what work-up has been performed. However patient also carries a diagnosis of breast cancer. For the treatment of breast cancer patient has received chemotherapy as well as radiation. It is my understanding that the patient likely has dilated nonischemic cardiomyopathy for which she received a left-sided implantable cardioverter defibrillator. Due to a variety of issues and also patient preference it appears that ICD tachycardia therapy has been turned off in the last year. Patient does not report any ICD shocks. He has DO NOT RESUSCITATE status recorded as well which which she again reiterated during our conversation. At the time of my evaluation patient reports feeling much better since admission to the emergency room. She does not report any chest pain or dyspnea except mild pleuritic chest pain on deep inspiration. Apparently multiple family members at home have been unwell with likely upper respiratory infection/pneumonia. Patient smokes cigarettes occasionally controlled. Past Medical History Cardiac Medical History: Reports: Congestive Heart Failure, Coronary Artery Disease, Hyperlipidema, Hypertension Denies: Myocardial Infarction Pulmonary Medical History: Reports: Pneumonia - A CHILD Denies: Asthma, Bronchitis, Chronic Obstructive Pulmonary Disease (COPD) Neurological Medical History: Denies: Seizures Endocrine Medical History: Reports: Diabetes Mellitus Type 1 Malignancy Medical History: Reports: Breast Cancer Musculoskeltal Medical History: Reports: Gout Denies: Arthritis Psychiatric Medical History: Reports: Depression Hematology: Denies: Anemia Past Surgical History Past Surgical History: Reports: Mastectomy - right side, Tubal Ligation Social History Smoking Status: Current Some Day Smoker Electronic Cigarette use?: No Frequency of Alcohol Use: Rare Hx Recreational Drug Use: No Family History Family History: Reviewed & Not Pertinent Parental Family History Reviewed: Yes - No family illnesses recorded Children Family History Reviewed: Yes Sibling(s) Family History Reviewed.: Yes Medication/Allergy Home Medications: Calcium Carbonate/Vitamin D3 [Calcium 600-Vit D3 200 Tablet] 1 tab PO DAILY 12/31/13 Furosemide [Lasix 40 mg Tablet] 40 mg PO QAM 12/31/13 Multivitamin [Multi-Vitamin Daily] 1 tab PO DAILY 12/31/13 Anastrozole [Arimidex 1 mg Tablet] 1 mg PO QHS #30 tablet 01/07/14 Metoprolol Succinate 25 mg PO DAILY #30 tab.sr.24h 01/07/14 Spironolactone [Aldactone 25 mg Tablet] 25 mg PO DAILY #30 tablet 01/07/14 Aspirin [Aspirin EC] 81 mg PO DAILY 05/20/17 Colchicine [Colcrys 0.6 mg Tablet] 1 tab PO DAILY 05/20/17 Nitroglycerin 0.4 mg SL PRN PRN 05/20/17 Ondansetron [Zofran Odt 4 mg Tablet] 1 tab PO Q6HP PRN 05/20/17 Temazepam [Restoril 15 mg Capsule] 15 mg PO HSP PRN 05/20/17 Docusate Sodium [Colace 100 mg Capsule] 100 mg PO BID 05/21/17 Losartan Potassium [Cozaar 25 mg Tablet] 25 mg PO DAILY 05/21/17 [place]-3 Fatty Acids/Fish Oil [[place] 3 Fish Oil Softgel] 1 cap PO BID 05/21/17 Oxycodone HCl [Oxy-Ir 5 mg Tablet] 5 mg PO Q6HP PRN 05/21/17 Rosuvastatin Calcium [Crestor 10 mg Tablet] 10 mg PO DAILY 05/21/17 Fentanyl [Duragesic 12 Mcg/Hr Transdermal Patch] 1 each TD Q3DAYS patch.td72 05/27/17 Oxycodone HCl [Oxy-Ir 5 mg Tablet] 10 mg PO Q6HP PRN tablet 05/27/17 Allergies/Adverse Reactions: No Known Allergies Allergy (Verified 04/18/19 11:41) Review of Systems Cardiovascular: PRESENT: as per HPI Respiratory: PRESENT: as per HPI Physical Exam Vital Signs: Temp Pulse Resp BP Pulse Ox 98.2 F 88 18 130/81 H 100 04/18/19 18:13 04/18/19 11:41 04/18/19 19:05 04/18/19 19:05 04/18/19 19:05 Intake & Output 04/17/19 04/18/19 04/19/19 06:59 06:59 06:59 Weight 67.1 kg General appearance: PRESENT: cooperative Head exam: PRESENT: atraumatic, normocephalic Eye exam: PRESENT: EOMI Ear exam: PRESENT: normal external ear exam Mouth exam: PRESENT: moist Neck exam: PRESENT: JVD Respiratory exam: PRESENT: crackles, decreased breath sounds, unlabored Cardiovascular exam: PRESENT: RRR, +S1, +S2 GI/Abdominal exam: PRESENT: soft Rectal exam: PRESENT: deferred Musculoskeletal exam: PRESENT: normal inspection Neurological exam: PRESENT: alert, awake, oriented to person, oriented to place, oriented to time, oriented to situation Psychiatric exam: PRESENT: appropriate affect Skin exam: PRESENT: dry, intact, normal color Results Laboratory Results: 04/18/19 12:54 04/18/19 12:54 04/18/19 04/18/19 12:54 12:54 WBC 4.0 RBC 2.86 L Hgb 10.1 L Hct 29.6 L MCV 104 H MCH 35.2 H MCHC 34.0 RDW 15.9 H Plt Count 136 L Seg Neutrophils % 66.0 Sodium 139.3 Potassium 4.2 Chloride 103 Carbon Dioxide 27 Anion Gap 9 BUN 46 H Creatinine 2.34 H Est GFR ( Amer) 24 L Glucose 86 Calcium 10.4 H Total Bilirubin 0.7 AST 33 Alkaline Phosphatase 82 Total Protein 6.4 Albumin 3.4 L 04/18/19 04/18/19 04/18/19 12:54 12:54 16:09 Creatine Kinase CK-MB (CK-2) Troponin I 0.205 0.199 NT-Pro-B Natriuret Pep [id number] H 04/18/19 04/18/19 18:47 18:47 Creatine Kinase 42 CK-MB (CK-2) 1.90 Troponin I 0.233 NT-Pro-B Natriuret Pep EKG Comments: Twelve-lead EKG 04/18/2019 independently reviewed by me shows sinus rhythm at 95 bpm with left ventricular hypertrophy, left atrial abnormality. Repolarization changes likely due to left ventricular hypertrophy. QTC is 447 ms. No significant change from prior EKG Impressions: Chest X-Ray 04/18/19 11:43 IMPRESSION: Cardiomegaly. Minimal vascular congestion and trace pleural fluid. Chest CT 04/18/19 17:44 IMPRESSION: Moderate bilateral pleural effusions. Mild basilar subsegmental atelectasis. Similar chronic interstitial changes in the right upper lobe. Mild interlobular septal thickening which is new compared with the prior exam. No pneumothorax. No pulmonary masses. Assessment & Plan - Diagnosis (1) Congestive heart failure (CHF) Qualifiers: Heart failure type: unspecified Heart failure chronicity: acute Qualified Code(s): I50.9 - Heart failure, unspecified Is this a current diagnosis for this admission?: Yes Plan: Left ventricular dysfunction as mentioned. Most recent ejection fraction is unknown. Patient appears to be volume overloaded mildly on exam. She does have neck vein distention and pleural effusions radiology clear as well as diminished heart sounds at the lung bases. Would recommend continued intravenous diuretic and monitor urine output as well as creatinine Would not repeat echo given patient's overall wishes to be treated conservatively with primary emphasis on symptom control. Patient also does mention that ICD tachycardia therapy functions have been turned off. (2) NSTEMI (non-ST elevated myocardial infarction) Is this a current diagnosis for this admission?: Yes Plan: Likely demand mediated and unlikely to be acute coronary syndrome. Would not treat as acute coronary syndrome. Would not use heparin. No plans for re-stratification of cardiac catheterization. Supportive care - Notes Notes: We will diurese gently and observe creatinine and resolution of respiratory symptoms. At the present time she does not appear to have an infectious component. Guideline directed medical therapy for congestive heart failure as feasible.
--- NOTE | 2019-04-18 21:29 | Progress Note ---
Provider Note Provider Note: pt seen and exam in er d/w nursing staff and cardilogist
[2019-04-18] MEDS: FUROSEMIDE INJ/PF 40 MG/4 ML SDV IV SCH (22:42)
[2019-04-18] MEDS: HEPARIN SOD (PORCINE) 5,000 UNIT/ML 1 ML VIAL SUBCUT SCH (22:43)
[2019-04-18] MEDS: FAMOTIDINE 20 MG TABLET PO SCH (22:44)
[2019-04-18] MEDS ORDERED: DOCUSATE SODIUM 100 MG CAPSULE PO ONE (23:00)
[2019-04-18] MEDS ORDERED: ATORVASTATIN CALCIUM 20 MG TABLET PO ONE (23:00)
[2019-04-18] MEDS: TEMAZEPAM 15 MG CAPSULE PO PRN (23:08)
[2019-04-19 01:31] LABS: CREATINE KINASE MB 1.33 ng/mL (<4.55)
[2019-04-19 01:44] LABS: TROPONIN I 0.239 ng/mL
[2019-04-19] MEDS: HEPARIN SOD (PORCINE) 5,000 UNIT/ML 1 ML VIAL SUBCUT SCH ×3 (06:25→22:07)
[2019-04-19] MEDS: FUROSEMIDE INJ/PF 40 MG/4 ML SDV IV SCH ×3 (06:28→22:07)
[2019-04-19 07:48] LABS: ALBUMIN 3.3 g/dL (3.5-5.0); ALKALINE PHOSPHATASE 82 U/L (38-126); ANION GAP 10 (5-19); ASPARTATE AMINO TRANSFERASE 29 U/L (14-36); BILIRUBIN,DIRECT 0.2 mg/dL (0.0-0.4); BILIRUBIN,TOTAL 0.8 mg/dL (0.2-1.3); BLOOD UREA NITROGEN 45 mg/dL (7-20); CALCIUM 10.9 mg/dL (8.4-10.2); CARBON DIOXIDE 29 mmol/L (22-30); CHLORIDE 99 mmol/L (98-107); CREATINE KINASE 39 U/L (30-135); GLUCOSE 84 mg/dL (75-110); POTASSIUM 4.2 mmol/L (3.6-5.0); TOTAL PROTEIN 6.2 g/dL (6.3-8.2)
[2019-04-19 07:59] LABS: CREATINE KINASE MB 1.65 ng/mL (<4.55); TROPONIN I 0.282 ng/mL
--- NOTE | 2019-04-19 08:33 | PDOC CONSULTATION ---
Consultation Consult Date: 04/19/19 Attending physician:: FLAVIO MONTANEZ Provider Consulted: HERMES JAY Consult reason:: Patient here with bilateral pleural effusion, shortness of breath, concern of CHF History of Present Illness Admission Date/PCP: 04/18/19 17:12 FLAVIO MONTANEZ MD Patient complains of: Shortness of breath, dyspnea on exertion History of Present Illness: ROXANE RYAN is a 79 year old female who was doing well over the last 6 months. Her breast cancer has been overall well controlled on oral endocrine therapy with Femara plus Kisqali, also has been receiving bone modifying therapy with Xgeva. She did have radiation therapy done in the last 6 months to the bone. Now she is doing better. She has been getting around fairly well. Eating fairly well. However about 48 hours prior to admission she began having shortn ess of breath and dyspnea on exertion. Her family had been sick with bacterial infection, so she felt like she got sick because of that as well. But upon admission she had CT of the chest which indicated bilateral pleural effusion right greater than left, opacities increased, overall picture seems much more consistent with heart failure but parapneumonic effusion may be possible. We did a full restaging for her in February, and at that time there was minimal effusions, no acute abnormalities in the chest, no progression in the abdomen, and overall the bone metastasis looks stable. She has bone only metastasis currently. Past Medical History Cardiac Medical History: Reports: Congestive Heart Failure, Coronary Artery Disease, Hyperlipidema, Hypertension Denies: Myocardial Infarction Pulmonary Medical History: Reports: Pneumonia - A CHILD Denies: Asthma, Bronchitis, Chronic Obstructive Pulmonary Disease (COPD) Neurological Medical History: Denies: Seizures Endocrine Medical History: Reports: Diabetes Mellitus Type 1 Malignancy Medical History: Reports: Breast Cancer Musculoskeltal Medical History: Reports: Gout Denies: Arthritis Psychiatric Medical History: Reports: Depression Hematology: Denies: Anemia Past Surgical History Past Surgical History: Reports: Mastectomy - right side, Tubal Ligation Social History Information Source: Patient Smoking Status: Former Smoker Electronic Cigarette use?: No Frequency of Alcohol Use: None Hx Recreational Drug Use: No Drugs: None Hx Prescription Drug Abuse: No - Advance Directive Resuscitation Status: Do Not Intubate Family History Family History: Reviewed & Not Pertinent Parental Family History Reviewed: Yes Children Family History Reviewed: Yes Sibling(s) Family History Reviewed.: Yes Medication/Allergy Home Medications: Calcium Carbonate/Vitamin D3 [Calcium 600-Vit D3 200 Tablet] 1 tab PO DAILY 12/31/13 Furosemide [Lasix 40 mg Tablet] 40 mg PO QAM 12/31/13 Multivitamin [Multi-Vitamin Daily] 1 tab PO DAILY 12/31/13 Anastrozole [Arimidex 1 mg Tablet] 1 mg PO QHS #30 tablet 01/07/14 Metoprolol Succinate 25 mg PO DAILY #30 tab.sr.24h 01/07/14 Spironolactone [Aldactone 25 mg Tablet] 25 mg PO DAILY #30 tablet 01/07/14 Aspirin [Aspirin EC] 81 mg PO DAILY 05/20/17 Colchicine [Colcrys 0.6 mg Tablet] 1 tab PO DAILY 05/20/17 Nitroglycerin 0.4 mg SL PRN PRN 05/20/17 Ondansetron [Zofran Odt 4 mg Tablet] 1 tab PO Q6HP PRN 05/20/17 Temazepam [Restoril 15 mg Capsule] 15 mg PO HSP PRN 05/20/17 Docusate Sodium [Colace 100 mg Capsule] 100 mg PO BID 05/21/17 Losartan Potassium [Cozaar 25 mg Tablet] 25 mg PO DAILY 05/21/17 [place]-3 Fatty Acids/Fish Oil [[place] 3 Fish Oil Softgel] 1 cap PO BID 05/21/17 Oxycodone HCl [Oxy-Ir 5 mg Tablet] 5 mg PO Q6HP PRN 05/21/17 Rosuvastatin Calcium [Crestor 10 mg Tablet] 10 mg PO DAILY 05/21/17 Fentanyl [Duragesic 12 Mcg/Hr Transdermal Patch] 1 each TD Q3DAYS patch.td72 05/27/17 Oxycodone HCl [Oxy-Ir 5 mg Tablet] 10 mg PO Q6HP PRN tablet 05/27/17 Allergies/Adverse Reactions: No Known Allergies Allergy (Verified 04/18/19 11:41) Review of Systems Constitutional: ABSENT: chills, fever(s), headache(s), weight gain, weight loss Eyes: ABSENT: visual disturbances Ears: ABSENT: hearing changes Cardiovascular: ABSENT: chest pain, dyspnea on exertion, edema, orthropnea, palpitations Respiratory: ABSENT: cough, hemoptysis Gastrointestinal: ABSENT: abdominal pain, constipation, diarrhea, hematemesis, hematochezia, nausea, vomiting Genitourinary: ABSENT: dysuria, hematuria Musculoskeletal: ABSENT: joint swelling Integumentary: ABSENT: rash, wounds Neurological: ABSENT: abnormal gait, abnormal speech, confusion, dizziness, focal weakness, syncope Psychiatric: ABSENT: anxiety, depression, homidical ideation, suicidal ideation Endocrine: ABSENT: cold intolerance, heat intolerance, polydipsia, polyuria Hematologic/Lymphatic: ABSENT: easy bleeding, easy bruising Physical Exam Vital Signs: Temp Pulse Resp BP Pulse Ox 97.8 F 89 18 132/67 H 94 04/19/19 02:56 04/19/19 07:00 04/19/19 02:56 04/19/19 02:56 04/19/19 02:56 Intake & Output 04/18/19 04/19/19 04/20/19 06:59 06:59 06:59 Output Total 1300 Balance -1300 Weight 67.1 kg General appearance: PRESENT: no acute distress, well-developed, well-nourished Head exam: PRESENT: atraumatic, normocephalic Eye exam: PRESENT: conjunctiva pink, EOMI, PERRLA. ABSENT: scleral icterus Ear exam: PRESENT: normal external ear exam Mouth exam: PRESENT: moist, tongue midline Neck exam: ABSENT: carotid bruit, JVD, lymphadenopathy, thyromegaly Respiratory exam: PRESENT: clear to auscultation manny. ABSENT: rales, rhonchi, wheezes Cardiovascular exam: PRESENT: RRR. ABSENT: diastolic murmur, rubs, systolic murmur Pulses: PRESENT: normal dorsalis pedis pul Vascular exam: PRESENT: normal capillary refill GI/Abdominal exam: PRESENT: normal bowel sounds, soft. ABSENT: distended, guarding, mass, organolmegaly, rebound, tenderness Rectal exam: PRESENT: deferred Extremities exam: PRESENT: full ROM. ABSENT: calf tenderness, clubbing, pedal edema Neurological exam: PRESENT: alert, awake, oriented to person, oriented to place, oriented to time, oriented to situation, CN II-XII grossly intact. ABSENT: motor sensory deficit Psychiatric exam: PRESENT: appropriate affect, normal mood. ABSENT: homicidal ideation, suicidal ideation Skin exam: PRESENT: dry, intact, warm. ABSENT: cyanosis, rash Results Laboratory Results: 04/18/19 12:54 04/19/19 07:02 04/18/19 04/18/19 04/19/19 12:54 12:54 07:02 WBC 4.0 RBC 2.86 L Hgb 10.1 L Hct 29.6 L MCV 104 H MCH 35.2 H MCHC 34.0 RDW 15.9 H Plt Count 136 L Seg Neutrophils % 66.0 Sodium 139.3 137.7 Potassium 4.2 4.2 Chloride 103 99 Carbon Dioxide 27 29 Anion Gap 9 10 BUN 46 H 45 H Creatinine 2.34 H 2.47 H Est GFR ( Amer) 24 L 23 L Glucose 86 84 Calcium 10.4 H 10.9 H Magnesium 1.8 Total Bilirubin 0.7 0.8 AST 33 29 Alkaline Phosphatase 82 82 Total Protein 6.4 6.2 L Albumin 3.4 L 3.3 L 04/18/19 04/18/19 04/18/19 12:54 12:54 16:09 Creatine Kinase CK-MB (CK-2) Troponin I 0.205 0.199 NT-Pro-B Natriuret Pep 06138 H 04/18/19 04/18/19 04/19/19 18:47 18:47 00:43 Creatine Kinase 42 39 CK-MB (CK-2) 1.90 Troponin I 0.233 NT-Pro-B Natriuret Pep 04/19/19 04/19/19 04/19/19 00:43 07:02 07:02 Creatine Kinase 39 CK-MB (CK-2) 1.33 1.65 Troponin I 0.239 0.282 NT-Pro-B Natriuret Pep [id number] H Impressions: Chest X-Ray 04/18/19 11:43 IMPRESSION: Cardiomegaly. Minimal vascular congestion and trace pleural fluid. Chest CT 04/18/19 17:44 IMPRESSION: Moderate bilateral pleural effusions. Mild basilar subsegmental atelectasis. Similar chronic interstitial changes in the right upper lobe. Mild interlobular septal thickening which is new compared with the prior exam. No pneumothorax. No pulmonary masses. Status: Image reviewed by me Assessment & Plan - Diagnosis (1) Pleural effusion due to CHF (congestive heart failure) Is this a current diagnosis for this admission?: Yes Plan: Bilateral pleural effusion, I do not believe it is related to the breast cancer but more likely related to heart failure, may be less likely related to a parapneumonic effusion. Agree with diuresis however creatinine is elevated so need to be gentle. (2) Congestive heart failure (CHF) Qualifiers: Heart failure type: systolic Heart failure chronicity: acute Qualified Code(s): I50.21 - Acute systolic (congestive) heart failure Is this a current diagnosis for this admission?: Yes Plan: Probable systolic heart failure, originally she had heart failure related to anthracyclines diagnosed now about 4 to 5 years ago. EF was originally below 30% but had improved over the last few years. Once she had the diagnosis of breast cancer she decided on turning off the ICD, as she wanted to be a DNR and did not want to have to put her family through deciding on removing all supportive measures. We had long discussions about this 2 years ago when she was originally diagnosed with breast cancer. We had a long discussion about it again today and she is still deciding but probably will keep it off. Continue other aggressive measures per cardiology. (3) Breast cancer Qualifiers: Breast location: upper outer quadrant of breast Estrogen receptor status: p ositive Laterality: right Is this a current diagnosis for this admission?: Yes Plan: She will need to hold all oral breast cancer therapy while admitted, we will restart after discharge. I do not think the heart failure, pleural effusion is at all related to the treatments or the breast cancer itself. Remains to be an excellent response from the treatment. (4) ARF (acute renal failure) Qualifiers: Acute renal failure type: unspecified Qualified Code(s): N17.9 - Acute kidney failure, unspecified Is this a current diagnosis for this admission?: Yes Plan: Renal failure probably related to heart failure and other issues. Watch closely. (5) Pain, neoplasm-related Is this a current diagnosis for this admission?: Yes Plan: She will need to continue with home oral pain medications. - Time Time Spent: Greater than 70 Minutes - Inpatient Certification Based on my medical assessment, after consideration of the patient's comorbidities, presenting symptoms, or acuity I expect that the services needed warrant INPATIENT care.: Yes I certify that my determination is in accordance with my understanding of Medicare's requirements for reasonable and necessary INPATIENT services [42 CFR 412.3e].: Yes Medical Necessity: Risk of Complication if Not Cared For in Hospital
--- NOTE | 2019-04-19 08:37 | PDOC PROGRESS REPORT ---
Subjective Progress Note for:: 04/19/19 Subjective:: Patient is currently doing fair patients feel better after the Lasix therapy She is denied any chest pain Denied any cough Reason For Visit: ACUTE CONGESTIVE HEART FAILURE Physical Exam Vital Signs: Temp Pulse Resp BP Pulse Ox 97.8 F 89 18 132/67 H 94 04/19/19 02:56 04/19/19 07:00 04/19/19 02:56 04/19/19 02:56 04/19/19 02:56 Intake & Output 04/18/19 04/19/19 04/20/19 06:59 06:59 06:59 Output Total 1300 Balance -1300 Weight 67.1 kg General appearance: PRESENT: no acute distress, well-developed, well-nourished Head exam: PRESENT: atraumatic, normocephalic Eye exam: PRESENT: conjunctiva pink, EOMI, PERRLA. ABSENT: scleral icterus Ear exam: PRESENT: normal external ear exam Mouth exam: PRESENT: moist, tongue midline Neck exam: PRESENT: full ROM. ABSENT: carotid bruit, JVD, lymphadenopathy, thyromegaly Respiratory exam: PRESENT: decreased breath sounds Cardiovascular exam: PRESENT: RRR. ABSENT: diastolic murmur, rubs, systolic murmur Pulses: PRESENT: normal dorsalis pedis pul, +2 pedal pulses bilateral Vascular exam: PRESENT: normal capillary refill GI/Abdominal exam: PRESENT: normal bowel sounds, soft. ABSENT: distended, guarding, mass, organolmegaly, rebound, tenderness Rectal exam: PRESENT: deferred Neurological exam: PRESENT: alert, awake, oriented to person, oriented to place, oriented to time, oriented to situation, CN II-XII grossly intact. ABSENT: motor sensory deficit Psychiatric exam: PRESENT: appropriate affect, normal mood. ABSENT: homicidal ideation, suicidal ideation Skin exam: PRESENT: dry, intact, warm. ABSENT: cyanosis, rash Results Laboratory Results: 04/18/19 12:54 04/19/19 07:02 04/18/19 04/18/19 04/19/19 12:54 12:54 07:02 WBC 4.0 RBC 2.86 L Hgb 10.1 L Hct 29.6 L MCV 104 H MCH 35.2 H MCHC 34.0 RDW 15.9 H Plt Count 136 L Seg Neutrophils % 66.0 Sodium 139.3 137.7 Potassium 4.2 4.2 Chloride 103 99 Carbon Dioxide 27 29 Anion Gap 9 10 BUN 46 H 45 H Creatinine 2.34 H 2.47 H Est GFR ( Amer) 24 L 23 L Glucose 86 84 Calcium 10.4 H 10.9 H Magnesium 1.8 Total Bilirubin 0.7 0.8 AST 33 29 Alkaline Phosphatase 82 82 Total Protein 6.4 6.2 L Albumin 3.4 L 3.3 L 04/18/19 04/18/19 04/18/19 12:54 12:54 16:09 Creatine Kinase CK-MB (CK-2) Troponin I 0.205 0.199 NT-Pro-B Natriuret Pep [id number] H 04/18/19 04/18/19 04/19/19 18:47 18:47 00:43 Creatine Kinase 42 39 CK-MB (CK-2) 1.90 Troponin I 0.233 NT-Pro-B Natriuret Pep 04/19/19 04/19/19 04/19/19 00:43 07:02 07:02 Creatine Kinase 39 CK-MB (CK-2) 1.33 1.65 Troponin I 0.239 0.282 NT-Pro-B Natriuret Pep [id number] H Impressions: Chest X-Ray 04/18/19 11:43 IMPRESSION: Cardiomegaly. Minimal vascular congestion and trace pleural fluid. Chest CT 04/18/19 17:44 IMPRESSION: Moderate bilateral pleural effusions. Mild basilar subsegmental atelectasis. Similar chronic interstitial changes in the right upper lobe. Mild interlobular septal thickening which is new compared with the prior exam. No pneumothorax. No pulmonary masses. Assessment & Plan - Diagnosis (1) Congestive heart failure (CHF) Qualifiers: Heart failure type: systolic Heart failure chronicity: acute Qualified Co de(s): I50.21 - Acute systolic (congestive) heart failure Is this a current diagnosis for this admission?: Yes Plan: Continues to IV Lasix (2) ARF (acute renal failure) Qualifiers: Acute renal failure type: unspecified Qualified Code(s): N17.9 - Acute kidney failure, unspecified Is this a current diagnosis for this admission?: Yes Plan: Continues to monitor the kidney functions (3) NSTEMI (non-ST elevated myocardial infarction) Is this a current diagnosis for this admission?: Yes Plan: Continues to follow with the cardiology repeat the EKG in the morning (4) Pleural effusion due to CHF (congestive heart failure) Is this a current diagnosis for this admission?: Yes Plan: We will repeat the chest x-ray today (5) Pulmonary vascular congestion Is this a current diagnosis for this admission?: Yes Plan: Continues to IV Lasix (6) Breast cancer Qualifiers: Breast location: upper outer quadrant of breast Estrogen receptor status: positive Laterality: right Is this a current diagnosis for this admission?: Yes Plan: We will consult the oncology for further evaluations we will repeat the chest x- ray about the pleural effusions (7) Chronic obstructive pulmonary disease (COPD) Qualifiers: COPD type: unspecified COPD Qualified Code(s): J44.9 - Chronic obstructive pulmonary disease, unspecified Is this a current diagnosis for this admission?: Yes Plan: Continues to nebulizer treatments (8) Cardiac defibrillator in situ Is this a current diagnosis for this admission?: Yes - Time Time Spent with patient: 15-24 minutes Level of Care: IMCU Medications reviewed and adjusted accordingly: Yes Anticipated discharge: Home with Homehealth Within: Other - Plan Summary Plan Summary: Continues to current medications
--- NOTE | 2019-04-19 09:48 | PDOC PROGRESS REPORT ---
Subjective Progress Note for:: 04/19/19 Subjective:: Patient reports improvement in symptoms. No dyspnea. Left-sided pleuritic pain is the only predominant symptom today. No other chest pain. Reason For Visit: ACUTE CONGESTIVE HEART FAILURE Physical Exam Vital Signs: Temp Pulse Resp BP Pulse Ox 98.4 F 138 H 17 109/80 98 04/19/19 08:25 04/19/19 08:25 04/19/19 08:25 04/19/19 08:25 04/19/19 08:25 Intake & Output 04/18/19 04/19/19 04/20/19 06:59 06:59 06:59 Output Total 1300 Balance -1300 Weight 67.1 kg General appearance: PRESENT: no acute distress, cooperative Head exam: PRESENT: normocephalic Eye exam: PRESENT: EOMI Mouth exam: PRESENT: moist Respiratory exam: PRESENT: crackles, decreased breath sounds - At the bases, unlabored Cardiovascular exam: PRESENT: RRR, +S1, +S2, other - Left upper chest wall infraclavicular area-ICD site without edema erythema or excoriation. Pulses: PRESENT: normal radial pulses GI/Abdominal exam: PRESENT: soft Rectal exam: PRESENT: deferred Neurological exam: PRESENT: alert, awake, oriented to person, oriented to place, oriented to time, oriented to situation Psychiatric exam: PRESENT: appropriate affect Skin exam: PRESENT: intact, normal color Results Laboratory Results: 04/18/19 12:54 04/19/19 07:02 04/18/19 04/18/19 04/19/19 12:54 12:54 07:02 WBC 4.0 RBC 2.86 L Hgb 10.1 L Hct 29.6 L MCV 104 H MCH 35.2 H MCHC 34.0 RDW 15.9 H Plt Count 136 L Seg Neutrophils % 66.0 Sodium 139.3 137.7 Potassium 4.2 4.2 Chloride 103 99 Carbon Dioxide 27 29 Anion Gap 9 10 BUN 46 H 45 H Creatinine 2.34 H 2.47 H Est GFR ( Amer) 24 L 23 L Glucose 86 84 Calcium 10.4 H 10.9 H Magnesium 1.8 Total Bilirubin 0.7 0.8 AST 33 29 Alkaline Phosphatase 82 82 Total Protein 6.4 6.2 L Albumin 3.4 L 3.3 L 12/15/19 12/15/19 12/15/19 12:54 12:54 16:09 Creatine Kinase CK-MB (CK-2) Troponin I 0.205 0.199 NT-Pro-B Natriuret Pep 11630 H 04/18/19 04/18/19 04/19/19 18:47 18:47 00:43 Creatine Kinase 42 39 CK-MB (CK-2) 1.90 Troponin I 0.233 NT-Pro-B Natriuret Pep 04/19/19 04/19/19 04/19/19 00:43 07:02 07:02 Creatine Kinase 39 CK-MB (CK-2) 1.33 1.65 Troponin I 0.239 0.282 NT-Pro-B Natriuret Pep 62365 H Impressions: Chest X-Ray 04/18/19 11:43 IMPRESSION: Cardiomegaly. Minimal vascular congestion and trace pleural fluid. Chest CT 04/18/19 17:44 IMPRESSION: Moderate bilateral pleural effusions. Mild basilar subsegmental atelectasis. Similar chronic interstitial changes in the right upper lobe. Mi ld interlobular septal thickening which is new compared with the prior exam. No pneumothorax. No pulmonary masses. Assessment & Plan - Diagnosis (1) Congestive heart failure (CHF) Qualifiers: Heart failure type: systolic Heart failure chronicity: acute Qualified Code(s): I50.21 - Acute systolic (congestive) heart failure Is this a current diagnosis for this admission?: Yes Plan: By clinical exam she appears to be improved. Creatinine is elevated. Gentle diuresis. Would recommend continuing intravenous diuretic for another 24 hours may be switching to oral agent as maintenance diuretic. Will repeat creatinine. (2) NSTEMI (non-ST elevated myocardial infarction) Is this a current diagnosis for this admission?: Yes Plan: Elevated troponins probably secondary to congestive heart failure. Unlikely to be acute coronary syndrome. Would not re-stratify. Not ACS. (3) Breast cancer Qualifiers: Breast location: upper outer quadrant of breast Estrogen receptor status: positive Laterality: right Is this a current diagnosis for this admission?: Yes Plan: Metastatic breast cancer. Rule effusions probably related to congestive heart failure Pleuritic chest pain reported left chest. - Notes Notes: Seems to have improved clinically since admission. Gentle diuresis and switch over to oral diuretic regimen.
[2019-04-19] MEDS: FAMOTIDINE 20 MG TABLET PO SCH ×2 (10:52→22:06)
[2019-04-19] MEDS: DOCUSATE SODIUM 100 MG CAPSULE PO SCH ×2 (10:52→18:28)
[2019-04-19] MEDS ORDERED: TEMAZEPAM 15 MG CAPSULE PO PRN (12:27)
[2019-04-19] MEDS ORDERED: NITROGLYCERIN 0.4 MG/TAB 25 TAB/BOTTLE SL PRN (12:27)
[2019-04-19] MEDS ORDERED: ONDANSETRON 4 MG TAB.RAPDIS PO PRN (12:27)
--- NOTE | 2019-04-19 13:33 | PDOC CONSULTATION ---
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 No complaints of any fever or chills. Imaging study is done in the form of a CT of the chest-noncontrasted showed bilateral pleural effusions right greater than left.There is no evidences of any masses or infiltrates. She has been begun on IV diuretics along with supplemental oxygen. Currently she is feeling a whole lot better with almost complete near resolution of her left pleuritic chest pain as well as marked improvement in her shortness of breath. She has a good appetite without any history of nausea vomiting. Labs and medications were reviewed. Admission creatinine was 2.4, Calcium was 10.4 and today 10.9 with a normal alkaline phosphatase. She seems to be in good spirits. Past Medical History Cardiac Medical History: Reports: Coronary Artery Disease, Hyperlipidemia Denies: Myocardial Infarction Pulmonary Medical History: Reports: Pneumonia - A CHILD Denies: Asthma, Bronchitis, Chronic Obstructive Pulmonary Disease (COPD) Neurological Medical History: Denies: Seizures Renal/ Medical History: Reports: Chronic Kidney Disease Stage IV Malignancy Medical History: Reports: Breast Cancer GI Medical History: Reports: Gastroesophageal Reflux Disease Musculoskeltal Medical History: Reports: Gout Denies: Arthritis Psychiatric Medical History: Reports: Depression Hematology Medical History: Reports Anemia Past Surgical History Past Surgical History: Reports: Mastectomy - right side, Pacemaker, Tubal Ligation Social History Smoking Status: Former Smoker Electronic Cigarette use?: No Frequency of Alcohol Use: None Hx Recreational Drug Use: No Drugs: None Hx Prescription Drug Abuse: No - Advance Directive Resuscitation Status: Do Not Intubate Family History Parental Family History Reviewed: Yes - Negative for ESRD Children Family History Reviewed: No Sibling(s) Family History Reviewed.: No Medication/Allergy Home Medications: Calcium Carbonate/Vitamin D3 [Calcium 600-Vit D3 200 Tablet] 1 tab PO DAILY 12/31/13 Furosemide [Lasix 40 mg Tablet] 40 mg PO QAM 12/31/13 Multivitamin [Multi-Vitamin Daily] 1 tab PO DAILY 12/31/13 Anastrozole [Arimidex 1 mg Tablet] 1 mg PO QHS #30 tablet 01/07/14 Metoprolol Succinate 25 mg PO DAILY #30 tab.sr.24h 01/07/14 Spironolactone [Aldactone 25 mg Tablet] 25 mg PO DAILY #30 tablet 01/07/14 Aspirin [Aspirin EC] 81 mg PO DAILY 05/20/17 Colchicine [Colcrys 0.6 mg Tablet] 1 tab PO DAILY 05/20/17 Nitroglycerin 0.4 mg SL PRN PRN 05/20/17 Ondansetron [Zofran Odt 4 mg Tablet] 1 tab PO Q6HP PRN 05/20/17 Temazepam [Restoril 15 mg Capsule] 15 mg PO HSP PRN 05/20/17 Docusate Sodium [Colace 100 mg Capsule] 100 mg PO BID 05/21/17 Losartan Potassium [Cozaar 25 mg Tablet] 25 mg PO DAILY 05/21/17 [place]is-3 Fatty Acids/Fish Oil [[place] 3 Fish Oil Softgel] 1 cap PO BID 05/21/17 Oxycodone HCl [Oxy-Ir 5 mg Tablet] 5 mg PO Q6HP PRN 05/21/17 Rosuvastatin Calcium [Crestor 10 mg Tablet] 10 mg PO DAILY 05/21/17 Oxycodone HCl [Oxy-Ir 5 mg Tablet] 10 mg PO Q6HP PRN tablet 05/27/17 Fentanyl [Duragesic 12 Mcg/Hr Transdermal Patch] 1 each TD Q3D 04/19/19 Ribociclib Succinate/Letrozole [Kisqali Femara 200 mg Co-Pack] 200 mg PO DAILY 04/19/19 Allergies/Adverse Reactions: No Known Allergies Allergy (Verified 04/18/19 11:41) Review of Systems Constitutional: PRESENT: fatigue, weakness. ABSENT: anorexia, chills, fever(s), headache(s), night sweats Cardiovascular: PRESENT: chest pain - Left pleuritic, dyspnea on exertion. ABSENT: edema, orthropnea, palpitations Respiratory: PRESENT: cough, dyspnea. ABSENT: hemoptysis Gastrointestinal: ABSENT: abdominal pain, constipation, diarrhea, dysphagia, hematemesis, nausea, vomiting Genitourinary: ABSENT: difficulty urinating, dysuria Musculoskeletal: ABSENT: deformity Integumentary: ABSENT: lesions, pruritus, rash Neurological: ABSENT: abnormal gait, abnormal speech, confusion, convulsions, focal weakness Endocrine: ABSENT: heat intolerance Hematologic/Lymphatic: ABSENT: easy bleeding, easy bruising, lymphadenopathy Physical Exam Vital Signs: Temp Pulse Resp BP Pulse Ox 98.6 F 102 H 17 101/69 94 04/19/19 12:00 04/19/19 12:00 04/19/19 12:00 04/19/19 12:00 04/19/19 12:00 Intake & Output 04/18/19 04/19/19 04/20/19 06:59 06:59 06:59 Output Total 1300 Balance -1300 Weight 67.1 kg General appearance: PRESENT: no acute distress Eye exam: PRESENT: EOMI, PERRLA Ear exam: PRESENT: normal external ear exam Neck exam: ABSENT: lymphadenopathy, meningismus, tenderness, thyromegaly, tracheal deviation Respiratory exam: PRESENT: decreased breath sounds. ABSENT: chest wall tenderness, crackles Cardiovascular exam: PRESENT: +S1, +S2 GI/Abdominal exam: PRESENT: normal bowel sounds, soft. ABSENT: organomegaly, tenderness Extremities exam: PRESENT: pedal edema Neurological exam: PRESENT: alert, awake, oriented to person, oriented to place Psychiatric exam: PRESENT: appropriate affect Skin exam: ABSENT: cyanosis, intact, mottled, rash Results Laboratory Results: 04/18/19 12:54 04/19/19 07:02 04/18/19 04/18/19 04/19/19 12:54 12:54 07:02 WBC 4.0 RBC 2.86 L Hgb 10.1 L Hct 29.6 L MCV 104 H MCH 35.2 H MCHC 34.0 RDW 15.9 H Plt Count 136 L Seg Neutrophils % 66.0 Sodium 139.3 137.7 Potassium 4.2 4.2 Chloride 103 99 Carbon Dioxide 27 29 Anion Gap 9 10 BUN 46 H 45 H Creatinine 2.34 H 2.47 H Est GFR ( Amer) 24 L 23 L Glucose 86 84 Calcium 10.4 H 10.9 H Magnesium 1.8 Total Bilirubin 0.7 0.8 AST 33 29 Alkaline Phosphatase 82 82 Total Protein 6.4 6.2 L Albumin 3.4 L 3.3 L 04/18/19 04/18/19 04/18/19 12:54 12:54 16:09 Creatine Kinase CK-MB (CK-2) Troponin I 0.205 0.199 NT-Pro-B Natriuret Pep 51884 H 04/18/19 04/18/19 04/19/19 18:47 18:47 00:43 Creatine Kinase 42 39 CK-MB (CK-2) 1.90 Troponin I 0.233 NT-Pro-B Natriuret Pep 04/19/19 04/19/19 04/19/19 00:43 07:02 07:02 Creatine Kinase 39 CK-MB (CK-2) 1.33 1.65 Troponin I 0.239 0.282 NT-Pro-B Natriuret Pep 97149 H Impressions: Chest CT 04/18/19 17:44 IMPRESSION: Moderate bilateral pleural effusions. Mild basilar subsegmental atelectasis. Similar chronic interstitial changes in the right upper lobe. Mild interlobular septal thickening which is new compared with the prior exam. No pneumothorax. No pulmonary masses. Assessment & Plan - Diagnosis (1) ARF (acute renal failure) Qualifiers: Acute renal failure type: unspecified Qualified Code(s): N17.9 - Acute ki dney failure, unspecified Is this a current diagnosis for this admission?: Yes Plan: Nonoliguric. Renal numbers are stable. Most likely secondary to prerenal issues including worsening heart failure. Continue current treatment guidelines. G iven her overall comorbidities she is not a candidate for renal replacement therapies which she has outlined in my office before. She is also a DNR. (2) Congestive heart failure (CHF) Qualifiers: Heart failure type: systolic Heart failure chronicity: acute Qualified Code(s): I50.21 - Acute systolic (congestive) heart failure Is this a current diagnosis for this admission?: Yes Plan: Pleural effusion is a combination most likely of heart failure as well as low albumin. Continue present treatment guidelines. Hopefully she will respond and one might need to check her oxygen saturation with exertion. Otherwise she might need thoracentesis as she has had a similar episode in the past many years ago. (3) Pleural effusion due to CHF (congestive heart failure) Is this a current diagnosis for this admission?: Yes Plan: As mentioned earlier. (4) Breast cancer Qualifiers: Breast location: upper outer quadrant of breast Estrogen receptor status: positive Laterality: right Is this a current diagnosis for this admission?: Yes Plan: Now with bony metastasis presenting in the form of pathological fracture of right femur. As per heme-onc.
--- NOTE | 2019-04-19 13:50 | RADIOLOGY REPORT (SQ) ---
EXAM DESCRIPTION: CHEST SINGLE VIEW COMPLETED DATE/TIME: 04/19/2019 12:54 pm REASON FOR STUDY: pleural effusion COMPARISON: 04/18/2019. EXAM PARAMETERS: NUMBER OF VIEWS: One view. TECHNIQUE: Single frontal radiographic view of the chest acquired. RADIATION DOSE: NA LIMITATIONS: None. FINDINGS: LUNGS AND PLEURA: Chronic scarring in the right apex. No focal infiltrates, masses or pne umothorax. Small pleural effusions. MEDIASTINUM AND HILAR STRUCTURES: No masses. Contour normal. HEART AND VASCULAR STRUCTURES: Stable mild cardiomegaly. Normal vasculature. BONES: No acute findings. HARDWARE: Defibrillator. OTHER: No other significant finding. IMPRESSION: STABLE APPEARANCE. NO SIGNIFICANT CHANGE. TECHNICAL DOCUMENTATION: JOB ID: [id number] [employer]- All Rights Reserved Reading location - IP/workstation name: [email or web address]
[2019-04-19] MEDS ORDERED: LETROZOLE PO SCH ×2 (14:00)
[2019-04-19] MEDS ORDERED: RIBOCICLIB SUCCINATE PO SCH ×2 (14:00)
[2019-04-19] MEDS: OMEGA-3 ACID ETHYL ESTERS 1 GM CAPSULE PO SCH (18:28)
--- NOTE | 2019-04-19 19:35 | XCELERA REPORT ---
[address] [address] Transthoracic Echocardiogram Report Name: ROXANE RYAN Age: 79 yrs Gender: Female : 1940 Patient Status: Inpatient Patient Location: [address] [place], [place] [address] Study Date: 04/19/2019 04:29 PM History: Dilated cardiomyopathy Height: 64 in Weight: 147 lb BSA: 1.7 m2 Procedure: A two-dimensional transthoracic echocardiogram with color flow and Doppler was performed. Reason For Study: chf History: CHF. Ordering Physician: FLAVIO MONTANEZ Performed By: Lolita Romero Interpretation Summary Due to the poor quality of the echocardiogram, an assessment of left ventricular ejection fraction cannot be made. Best estimate is 20-25. The right ventricular systolic function is normal. There is a moderate amount of mitral regurgitation There is a trace amount of aortic regurgitation There is no aortic valve stenosis There is a mild to moderate amount of tricuspid regurgitation Minimal pericardial effusion. MMode/2D Measurements & Calculations IVSd: 0.94 cm LVIDd: 5.5 cm FS: 22.8 % Ao root diam: 2.3 cm LVIDs: 4.3 cm EDV(Teich): 150.3 ml Ao root area: 4.3 cm2 LVPWd: 1.1 cm ESV(Teich): 82.1 ml EF(Teich): 45.3 % Doppler Measurements & Calculations MV E max ayo: MV dec slope: Ao V2 max: AI max ayo: 121.6 cm/sec 916.3 cm/sec2 167.2 cm/sec 365.4 cm/sec MV A max ayo: MV dec time: Ao max PG: AI max P.4 mmHg 146.6 cm/sec 0.13 sec 11.2 mmHg AI dec slope: MV E/A: 0.83 235.9 cm/sec2 AI P1/2t: 453.6 msec LV V1 max PG: PA V2 max: TR max ayo: 4.1 mmHg 72.5 cm/sec 293.8 cm/sec LV V1 max: PA max P.1 mmHg TR max P.3 cm/sec 34.5 mmHg Left Ventricle The left ventricle is normal in size. There is mild concentric left ventricular hypertrophy. Due to the poor quality of the echocardiogram, an assessment of left ventricular ejection fraction cannot be made. Best estimate is 20-25. Doppler measurements suggest impaired left ventricular relaxation, which is associated with grade I/IV or mild diastolic dysfunction. Right Ventricle The right ventricle is normal in size and function. There is a pacemaker lead in the right ventricle. The right ventricular systolic function is normal. Atria The right atrium is normal in size. There is a catheter/pacemaker lead seen in the right atrium. The left atrium is moderately dilated. The interatrial septum is difficult to see, but appears to be grossly normal. Mitral Valve Calcified mitral apparatus. There is a moderate amount of mitral regurgitation. Aortic Valve The aortic valve is sclerotic, but shows no functional abnormality. The aortic valve is trileaflet. The aortic valve opens well. There is no aortic valve stenosis. There is a trace amount of aortic regurgitation. Tricuspid Valve The tricuspid valve is normal in structure and function. There is a mild to moderate amount of tricuspid regurgitation. Doppler findings do not suggest pulmonary hypertension. Pulmonic Valve The pulmonic valve is not well visualized. Great Vessels The aortic root is normal size. The inferior vena cava appeared normal and decreased < 50% with respiration (RAP 10-15 mmHg). Effusions Minimal pericardial effusion. Small left pleural effusion. : FLAVIO MONTANEZ Anil
[2019-04-19] MEDS: ATORVASTATIN CALCIUM 20 MG TABLET PO SCH (22:06)
[2019-04-20] MEDS: FUROSEMIDE INJ/PF 40 MG/4 ML SDV IV SCH (05:47)
[2019-04-20] MEDS: HEPARIN SOD (PORCINE) 5,000 UNIT/ML 1 ML VIAL SUBCUT SCH ×3 (05:47→21:13)
[2019-04-20 06:07] LABS: ANION GAP 14 (5-19); BLOOD UREA NITROGEN 56 mg/dL (7-20); CALCIUM 10.1 mg/dL (8.4-10.2); CARBON DIOXIDE 26 mmol/L (22-30); CHLORIDE 97 mmol/L (98-107); GLUCOSE 92 mg/dL (75-110); PHOSPHORUS 5.5 mg/dL (2.5-4.5); POTASSIUM 3.7 mmol/L (3.6-5.0)
--- NOTE | 2019-04-20 08:36 | PDOC PROGRESS REPORT ---
Subjective Progress Note for:: 04/20/19 Subjective:: Patient is feeling much better Patient's chest x-ray is all improving Patient denied any chest pain no short of breath Patient's expressed DNR/DNI Reason For Visit: ACUTE CONGESTIVE HEART FAILURE Physical Exam Vital Signs: Temp Pulse Resp BP Pulse Ox 98.5 F 80 16 144/74 H 97 04/20/19 06:44 04/20/19 06:56 04/20/19 06:44 04/20/19 06:44 04/20/19 06:44 Intake & Output 04/19/19 04/20/19 04/21/19 06:59 06:59 06:59 Intake Total 720 Output Total 1300 1825 Balance -1300 -1105 Weight 67.1 kg 67 kg General appearance: PRESENT: no acute distress, well-developed, well-nourished Head exam: PRESENT: atraumatic, normocephalic Eye exam: PRESENT: conjunctiva pink, EOMI, PERRLA. ABSENT: scleral icterus Ear exam: PRESENT: normal external ear exam Mouth exam: PRESENT: moist, tongue midline Neck exam: PRESENT: full ROM. ABSENT: carotid bruit, JVD, lymphadenopathy, thyromegaly Respiratory exam: PRESENT: clear to auscultation manny Cardiovascular exam: PRESENT: RRR. ABSENT: diastolic murmur, rubs, systolic murmur Pulses: PRESENT: normal dorsalis pedis pul, +2 pedal pulses bilateral Vascular exam: PRESENT: normal capillary refill GI/Abdominal exam: PRESENT: normal bowel sounds, soft. ABSENT: distended, guarding, mass, organolmegaly, rebound, tenderness Rectal exam: PRESENT: deferred Neurological exam: PRESENT: alert, awake, oriented to person, oriented to place, oriented to time, oriented to situation, CN II-XII grossly intact. ABSENT: motor sensory deficit Psychiatric exam: PRESENT: appropriate affect, normal mood. ABSENT: homicidal ideation, suicidal ideation Skin exam: PRESENT: dry, intact, warm. ABSENT: cyanosis, rash Results Laboratory Results: 04/18/19 12:54 04/20/19 05:34 04/20/19 04/20/19 05:34 05:34 Sodium 136.9 L Potassium 3.7 Chloride 97 L Carbon Dioxide 26 Anion Gap 14 BUN 56 H Creatinine 2.97 H Est GFR ( Amer) 19 L Glucose 92 Calcium 10.1 Phosphorus 5.5 H PTH Intact 21.1 04/18/19 04/18/19 04/18/19 12:54 12:54 16:09 Creatine Kinase CK-MB (CK-2) Troponin I 0.205 0.199 NT-Pro-B Natriuret Pep [id number] H 04/18/19 04/18/19 04/19/19 18:47 18:47 00:43 Creatine Kinase 42 39 CK-MB (CK-2) 1.90 Troponin I 0.233 NT-Pro-B Natriuret Pep 04/19/19 04/19/19 04/19/19 00:43 07:02 07:02 Creatine Kinase 39 CK-MB (CK-2) 1.33 1.65 Troponin I 0.239 0.282 NT-Pro-B Natriuret Pep [id number] H Impressions: Chest CT 04/18/19 17:44 IMPRESSION: Moderate bilateral pleural effusions. Mild basilar subsegmental a telectasis. Similar chronic interstitial changes in the right upper lobe. Mild interlobular septal thickening which is new compared with the prior exam. No pneumothorax. No pulmonary masses. Chest X-Ray 04/19/19 00:00 IMPRESSION: STABLE APPEARANCE. NO SIGNIFICANT CHANGE. Assessment & Plan - Diagnosis (1) Congestive heart failure (CHF) Qualifiers: Heart failure type: systolic Heart failure chronicity: acute Qualified Code(s): I50.21 - Acute systolic (congestive) heart failure Is this a current diagnosis for this admission?: Yes Plan: Currently all stable switch to the IV to the p.o. Lasix (2) ARF (acute renal failure) Qualifiers: Acute renal failure type: unspecified Qualified Code(s): N17.9 - Acute kidney failure, unspecified Is this a current diagnosis for this admission?: Yes Plan: Currently all stable (3) NSTEMI (non-ST elevated myocardial infarction) Is this a current diagnosis for this admission?: Yes (4) Pleural effusion due to CHF (congestive heart failure) Is this a current diagnosis for this admission?: Yes Plan: Currently all improving (5) Pulmonary vascular congestion Is this a current diagnosis for this admission?: Yes Plan: Currently all resolved (6) Breast cancer Qualifiers: Breast location: upper outer quadrant of breast Estrogen receptor status: positive Laterality: right Is this a current diagnosis for this admission?: Yes (7) Chronic obstructive pulmonary disease (COPD) Qualifiers: COPD type: unspecified COPD Qualified Code(s): J44.9 - Chronic obstructive pulmonary disease, unspecified Is this a current diagnosis for this admission?: Yes Plan: Continues to nebulizer treatments (8) Cardiac defibrillator in situ Is this a current diagnosis for this admission?: Yes - Time Time Spent with patient: 15-24 minutes Level of Care: IMCU Medications reviewed and adjusted accordingly: Yes Anticipated discharge: Home with Homehealth Within: Other - Plan Summary Plan Summary: Switch IV to the p.o. Zi MONTENEGRO the [employer] catheter Physical therapy evaluations Discussed with the daughter on the bedside regarding the patient's current conditions patient is expressed DNR/DNI
[2019-04-20] MEDS: FAMOTIDINE 20 MG TABLET PO SCH ×2 (10:11→22:54)
[2019-04-20] MEDS: FUROSEMIDE 40 MG TABLET PO SCH ×2 (10:11→17:20)
[2019-04-20] MEDS: OMEGA-3 ACID ETHYL ESTERS 1 GM CAPSULE PO SCH ×2 (10:11→17:21)
[2019-04-20] MEDS: METOPROLOL SUCCINATE 25 MG TAB.SR.24H PO SCH (10:11)
[2019-04-20] MEDS: DOCUSATE SODIUM 100 MG CAPSULE PO SCH ×2 (10:11→17:21)
[2019-04-20] MEDS: MULTIVITAMIN TABLET PO SCH (10:11)
[2019-04-20] MEDS: LOSARTAN POTASSIUM 25 MG TABLET PO SCH (10:11)
[2019-04-20] MEDS: FENTANYL 25 MCG/HR PATCH.TD72 TD SCH (10:14)
--- NOTE | 2019-04-20 11:16 | PDOC PROGRESS REPORT ---
Subjective Progress Note for:: 04/20/19 Subjective:: Patient states that she is feeling much better than on arrival. She is hoping to go home tomorrow. She asks why she is getting shots for blood clots. Reason For Visit: ACUTE CONGESTIVE HEART FAILURE Physical Exam Vital Signs: Temp Pulse Resp BP Pulse Ox 98.5 F 80 16 144/74 H 97 04/20/19 06:44 04/20/19 06:56 04/20/19 06:44 04/20/19 06:44 04/20/19 06:44 Intake & Output 04/19/19 04/20/19 04/21/19 06:59 06:59 06:59 Intake Total 720 Output Total 1300 1825 Balance -1300 -1105 Weight 67.1 kg 67 kg General appearance: PRESENT: well-developed, well-nourished Head exam: PRESENT: normocephalic Eye exam: PRESENT: EOMI Respiratory exam: PRESENT: unlabored Extremities exam: ABSENT: pedal edema Neurological exam: PRESENT: alert, awake Psychiatric exam: PRESENT: appropriate affect Skin exam: PRESENT: normal color Results Laboratory Results: 04/18/19 12:54 04/20/19 05:34 04/20/19 04/20/19 05:34 05:34 Sodium 136.9 L Potassium 3.7 Chloride 97 L Carbon Dioxide 26 Anion Gap 14 BUN 56 H Creatinine 2.97 H Est GFR ( Amer) 19 L Glucose 92 Calcium 10.1 Phosphorus 5.5 H PTH Intact 21.1 04/18/19 19:07 Clean Catch Midstream Urine Culture - Final NO GROWTH 2 DAYS 04/18/19 04/18/19 04/18/19 12:54 12:54 16:09 Creatine Kinase CK-MB (CK-2) Troponin I 0.205 0.199 NT-Pro-B Natriuret Pep [id number] H 04/18/19 04/18/19 04/19/19 18:47 18:47 00:43 Creatine Kinase 42 39 CK-MB (CK-2) 1.90 Troponin I 0.233 NT-Pro-B Natriuret Pep 04/19/19 04/19/19 04/19/19 00:43 07:02 07:02 Creatine Kinase 39 CK-MB (CK-2) 1.33 1.65 Troponin I 0.239 0.282 NT-Pro-B Natriuret Pep [id number] H Impressions: Chest CT 04/18/19 17:44 IMPRESSION: Moderate bilateral pleural effusions. Mild basilar subsegmental atelectasis. Similar chronic interstitial changes in the right upper lobe. Mild interlobular septal thickening which is new compared with the prior exam. No pneumothorax. No pulmonary masses. Chest X-Ray 04/19/19 00:00 IMPRESSION: STABLE APPEARANCE. NO SIGNIFICANT CHANGE. Assessment & Plan - Diagnosis (1) Congestive heart failure (CHF) Qualifiers: Heart failure type: systolic Heart failure chronicity: acute Qualified Code(s): I50.21 - Acute systolic (congestive) heart failure Is this a current diagnosis for this admission?: Yes Plan: As per Primary attending. Her effusions do not seem to be due to cancer. She is responding to treatment. (2) Pleural effusion due to CHF (congestive heart failure) Is this a current diagnosis for this admission?: Yes Plan: As above. (3) Breast cancer Qualifiers: Breast location: upper outer quadrant of breast Estrogen receptor status: positive Laterality: right Is this a current diagnosis for this admission?: Yes Plan: I have explained that she should continue her Femara and HOLD the Kesquali. I have ordered the femara. Patient should be allowed to take her own if this is not available in house. However, She will not restart the Kesquali until she sees Dr. Hicks as outpatient. - Time Time Spent with patient: 15-24 minutes
--- NOTE | 2019-04-20 11:39 | PDOC PROGRESS REPORT ---
Subjective Progress Note for:: 04/20/19 Subjective:: Patient reports improvement in symptoms. No dyspnea. Left-sided pleuritic pain is the only predominant symptom today. No other chest pain. Reason For Visit: ACUTE CONGESTIVE HEART FAILURE Physical Exam Vital Signs: Temp Pulse Resp BP Pulse Ox 98.3 F 79 18 133/66 H 96 04/20/19 11:04 04/20/19 11:04 04/20/19 11:04 04/20/19 11:04 04/20/19 11:04 Intake & Output 04/19/19 04/20/19 04/21/19 06:59 06:59 06:59 Intake Total 720 Output Total 1300 1825 Balance -1300 -1105 Weight 67.1 kg 67 kg General appearance: PRESENT: no acute distress Eye exam: PRESENT: EOMI Mouth exam: PRESENT: moist Respiratory exam: PRESENT: unlabored Cardiovascular exam: PRESENT: RRR Rectal exam: PRESENT: deferred Results Laboratory Results: 04/18/19 12:54 04/20/19 05:34 04/20/19 04/20/19 05:34 05:34 Sodium 136.9 L Potassium 3.7 Chloride 97 L Carbon Dioxide 26 Anion Gap 14 BUN 56 H Creatinine 2.97 H Est GFR ( Amer) 19 L Glucose 92 Calcium 10.1 Phosphorus 5.5 H PTH Intact 21.1 04/18/19 19:07 Clean Catch Midstream Urine Culture - Final NO GROWTH 2 DAYS 04/18/19 04/18/19 04/18/19 12:54 12:54 16:09 Creatine Kinase CK-MB (CK-2) Troponin I 0.205 0.199 NT-Pro-B Natriuret Pep 97819 H 04/18/19 04/18/19 04/19/19 18:47 18:47 00:43 Creatine Kinase 42 39 CK-MB (CK-2) 1.90 Troponin I 0.233 NT-Pro-B Natriuret Pep 04/19/19 04/19/19 04/19/19 00:43 07:02 07:02 Creatine Kinase 39 CK-MB (CK-2) 1.33 1.65 Troponin I 0.239 0.282 NT-Pro-B Natriuret Pep [id number] H Impressions: Chest CT 04/18/19 17:44 IMPRESSION: Moderate bilateral pleural effusions. Mild basilar subsegmental atelectasis. Similar chronic interstitial changes in the right upper lobe. Mild interlobular septal thickening which is new compared with the prior exam. No pneumothorax. No pulmonary masses. Chest X-Ray 04/19/19 00:00 IMPRESSION: STABLE APPEARANCE. NO SIGNIFICANT CHANGE. Assessment & Plan - Diagnosis (1) Congestive heart failure (CHF) Qualifiers: Heart failure type: systolic Heart failure chronicity: acute Qualified Code(s): I50.21 - Acute systolic (congestive) heart failure Is this a current diagnosis for this admission?: Yes Plan: By clinical exam she appears to be improved. Creatinine is elevated. Agree with switching over to oral furosemide. Watch fluid intake and avoid added salt in the diet. (2) NSTEMI (non-ST elevated myocardial infarction) Is this a current diagnosis for this admission?: Yes Plan: Likely elevated troponins on account of congestive heart failure. Not acute coronary syndrome. No treatment (3) Breast cancer Qualifiers: Breast location: upper outer quadrant of breast Estrogen receptor status: positive Laterality: right Is this a current diagnosis for this admission?: Yes Plan: Metastatic breast cancer. Pleuritic chest pain reported left chest. - Notes Notes: Clinically much improved. Echocardiogram shows persistent left ventricular dysfunction. Continue diuretic therapy and medical therapy as tolerated. ICD functions have been turned off and patient has DO NOT RESUSCITATE status established.
[2019-04-20] MEDS: ATORVASTATIN CALCIUM 20 MG TABLET PO SCH (22:54)
[2019-04-21] MEDS: HEPARIN SOD (PORCINE) 5,000 UNIT/ML 1 ML VIAL SUBCUT SCH ×3 (05:03→22:25)
[2019-04-21 05:29] LABS: ANION GAP 13 (5-19); BLOOD UREA NITROGEN 65 mg/dL (7-20); CALCIUM 10.1 mg/dL (8.4-10.2); CARBON DIOXIDE 29 mmol/L (22-30); CHLORIDE 96 mmol/L (98-107); GLUCOSE 96 mg/dL (75-110); POTASSIUM 3.2 mmol/L (3.6-5.0)
[2019-04-21] MEDS ORDERED: POTASSIUM CHLORIDE 20 MEQ PACKET PO ONE ×2 (06:32→08:55)
--- NOTE | 2019-04-21 08:37 | PDOC PROGRESS REPORT ---
Subjective Progress Note for:: 04/21/19 Subjective:: Patient seems to be doing a little bit better, I reviewed echocardiogram results with the patient, still showing a low EF. Reason For Visit: ACUTE CONGESTIVE HEART FAILURE Physical Exam Vital Signs: Temp Pulse Resp BP Pulse Ox 97.4 F 82 18 124/74 98 04/21/19 08:25 04/21/19 08:25 04/21/19 08:25 04/21/19 08:25 04/21/19 08:25 Intake & Output 04/20/19 04/21/19 04/22/19 06:59 06:59 06:59 Intake Total 720 1005 Output Total 1825 301 Balance -1105 704 Weight 67 kg 67 kg General appearance: PRESENT: no acute distress, well-developed, well-nourished Head exam: PRESENT: atraumatic, normocephalic Eye exam: PRESENT: conjunctiva pink, EOMI, PERRLA. ABSENT: scleral icterus Ear exam: PRESENT: normal external ear exam Mouth exam: PRESENT: moist, tongue midline Neck exam: ABSENT: carotid bruit, JVD, lymphadenopathy, thyromegaly Respiratory exam: PRESENT: clear to auscultation manny. ABSENT: rales, rhonchi, wheezes Cardiovascular exam: PRESENT: RRR. ABSENT: diastolic murmur, rubs, systolic murmur Pulses: PRESENT: normal dorsalis pedis pul Vascular exam: PRESENT: normal capillary refill GI/Abdominal exam: PRESENT: normal bowel sounds, soft. ABSENT: distended, guarding, mass, organolmegaly, rebound, tenderness Rectal exam: PRESENT: deferred Extremities exam: PRESENT: full ROM. ABSENT: calf tenderness, clubbing, pedal edema Neurological exam: PRESENT: alert, awake, oriented to person, oriented to place, oriented to time, oriented to situation, CN II-XII grossly intact. ABSENT: motor sensory deficit Psychiatric exam: PRESENT: appropriate affect, normal mood. ABSENT: homicidal ideation, suicidal ideation Skin exam: PRESENT: dry, intact, warm. ABSENT: cyanosis, rash Results Laboratory Results: 04/18/19 12:54 04/21/19 04:50 04/21/19 04:50 Sodium 138.4 Potassium 3.2 L Chloride 96 L Carbon Dioxide 29 Anion Gap 13 BUN 65 H Creatinine 3.67 H Est GFR ( Amer) 15 L Glucose 96 Calcium 10.1 04/18/19 19:07 Clean Catch Midstream Urine Culture - Final NO GROWTH 2 DAYS 04/18/19 04/18/19 04/18/19 12:54 12:54 16:09 Creatine Kinase CK-MB (CK-2) Troponin I 0.205 0.199 NT-Pro-B Natriuret Pep [id number] H 04/18/19 04/18/19 04/19/19 18:47 18:47 00:43 Creatine Kinase 42 39 CK-MB (CK-2) 1.90 Troponin I 0.233 NT-Pro-B Natriuret Pep 04/19/19 04/19/19 04/19/19 00:43 07:02 07:02 Creatine Kinase 39 CK-MB (CK-2) 1.33 1.65 Troponin I 0.239 0.282 NT-Pro-B Natriuret Pep [id number] H Impressions: Chest CT 04/18/19 17:44 IMPRESSION: Moderate bilateral pleural effusions. Mild basilar subsegmental atelectasis. Similar chronic interstitial changes in the right upper lobe. Mild interlobular septal thickening which is new compared with the prior exam. No pneumothorax. No pulmonary masses. Chest X-Ray 04/19/19 00:00 IMPRESSION: STABLE APPEARANCE. NO SIGNIFICANT CHANGE. Assessment & Plan - Diagnosis (1) Pleural effusion due to CHF (congestive heart failure) Is this a current diagnosis for this admission?: Yes Plan: Secondary to heart failure, improved, Lasix now is being converted to p.o. given the elevated creatinine (2) Congestive heart failure (CHF) Qualifiers: Heart failure type: systolic Heart failure chronicity: acute Qualified Code(s): I50.21 - Acute systolic (congestive) heart failure Is this a current diagnosis for this admission?: Yes Plan: Continue per primary medical team and cardiology (3) Breast cancer Qualifiers: Breast location: upper outer quadrant of breast Estrogen receptor status: positive Laterality: right Is this a current diagnosis for this admission?: Yes Plan: Her presentation is not related to either the cancer or the medications for the treatment, we will see her next as an outpatient (4) ARF (acute renal failure) Qualifiers: Acute renal failure type: unspecified Qualified Code(s): N17.9 - Acute kidney failure, unspecified Is this a current diagnosis for this admission?: Yes Plan: Continue to follow per primary team (5) Pain, neoplasm-related Is this a current diagnosis for this admission?: Yes Plan: Continue home regimen - Time Time Spent with patient: 35 or more minutes Disposition: We will sign off, see patient next as an outpatient
[2019-04-21] MEDS: FAMOTIDINE 20 MG TABLET PO SCH ×2 (09:16→22:28)
[2019-04-21] MEDS: DOCUSATE SODIUM 100 MG CAPSULE PO SCH ×2 (09:16→17:04)
[2019-04-21] MEDS: MULTIVITAMIN TABLET PO SCH (09:16)
[2019-04-21] MEDS: LOSARTAN POTASSIUM 25 MG TABLET PO SCH (09:16)
[2019-04-21] MEDS: OMEGA-3 ACID ETHYL ESTERS 1 GM CAPSULE PO SCH ×2 (09:16→17:04)
[2019-04-21] MEDS: METOPROLOL SUCCINATE 25 MG TAB.SR.24H PO SCH (09:16)
--- NOTE | 2019-04-21 10:43 | PDOC PROGRESS REPORT ---
Subjective Progress Note for:: 04/21/19 Reason For Visit: ACUTE CONGESTIVE HEART FAILURE Physical Exam Vital Signs: Temp Pulse Resp BP Pulse Ox 97.4 F 77 16 124/74 98 04/21/19 08:25 04/21/19 09:55 04/21/19 09:55 04/21/19 08:25 04/21/19 09:55 Intake & Output 04/20/19 04/21/19 04/22/19 06:59 06:59 06:59 Intake Total 720 1005 Output Total 1825 301 Balance -1105 704 Weight 67 kg 67 kg General appearance: PRESENT: no acute distress, well-developed, well-nourished Head exam: PRESENT: atraumatic, normocephalic Eye exam: PRESENT: conjunctiva pink, EOMI, PERRLA. ABSENT: scleral icterus Ear exam: PRESENT: normal external ear exam Mouth exam: PRESENT: moist, tongue midline Neck exam: PRESENT: full ROM. ABSENT: carotid bruit, JVD, lymphadenopathy, thyromegaly Respiratory exam: PRESENT: clear to auscultation manny Cardiovascular exam: PRESENT: RRR. ABSENT: diastolic murmur, rubs, systolic murmur Pulses: PRESENT: normal dorsalis pedis pul, +2 pedal pulses bilateral Vascular exam: PRESENT: normal capillary refill GI/Abdominal exam: PRESENT: normal bowel sounds, soft. ABSENT: distended, guarding, mass, organolmegaly, rebound, tenderness Rectal exam: PRESENT: deferred Musculoskeletal exam: PRESENT: ambulatory Neurological exam: PRESENT: alert, awake, oriented to person, oriented to place, oriented to time, oriented to situation, CN II-XII grossly intact. ABSENT: motor sensory deficit Psychiatric exam: PRESENT: appropriate affect, normal mood. ABSENT: homicidal ideation, suicidal ideation Skin exam: PRESENT: dry, intact, warm. ABSENT: cyanosis, rash Results Laboratory Results: 04/18/19 12:54 04/21/19 04:50 04/21/19 04:50 Sodium 138.4 Potassium 3.2 L Chloride 96 L Carbon Dioxide 29 Anion Gap 13 BUN 65 H Creatinine 3.67 H Est GFR ( Amer) 15 L Glucose 96 Calcium 10.1 04/18/19 19:07 Clean Catch Midstream Urine Culture - Final NO GROWTH 2 DAYS 04/18/19 04/18/19 04/18/19 12:54 12:54 16:09 Creatine Kinase CK-MB (CK-2) Troponin I 0.205 0.199 NT-Pro-B Natriuret Pep [id number] H 04/18/19 04/18/19 04/19/19 18:47 18:47 00:43 Creatine Kinase 42 39 CK-MB (CK-2) 1.90 Troponin I 0.233 NT-Pro-B Natriuret Pep 04/19/19 04/19/19 04/19/19 00:43 07:02 07:02 Creatine Kinase 39 CK-MB (CK-2) 1.33 1.65 Troponin I 0.239 0.282 NT-Pro-B Natriuret Pep [id number] H Impressions: Chest CT 04/18/19 17:44 IMPRESSION: Moderate bilateral pleural effusions. Mild basilar subsegmental atelectasis. Similar chronic interstitial changes in the right upper lobe. Mild interlobular septal thickening which is new compared with the prior exam. No pneumothorax. No pulmonary masses. Chest X-Ray 04/19/19 00:00 IMPRESSION: STABLE APPEARANCE. NO SIGNIFICANT CHANGE. Assessment & Plan - Diagnosis (1) Congestive heart failure (CHF) Qualifiers: Heart failure type: systolic Heart failure chronicity: acute Qualified Code(s): I50.21 - Acute systolic (congestive) heart failure Is this a current diagnosis for this admission?: Yes (2) ARF (acute renal failure) Qualifiers: Acute renal failure type: unspecified Qualified Code(s): N17.9 - Acute kidney failure, unspecified Is this a current diagnosis for this admission?: Yes (3) NSTEMI (non-ST elevated myocardial infarction) Is this a current diagnosis for this admission?: Yes (4) Pleural effusion due to CHF (congestive heart failure) Is this a current diagnosis for this admission?: Yes (5) Pulmonary vascular congestion Is this a current diagnosis for this admission?: Yes (6) Breast cancer Qualifiers: Breast location: upper outer quadrant of breast Estrogen receptor status: positive Laterality: right Is this a current diagnosis for this admission?: Yes (7) Chronic obstructive pulmonary disease (COPD) Qualifiers: COPD type: unspecified COPD Qualified Code(s): J44.9 - Chronic obstructive pulmonary disease, unspecified Is this a current diagnosis for this admission?: Yes (8) Cardiac defibrillator in situ Is this a current diagnosis for this admission?: Yes - Time Time Spent with patient: 15-24 minutes Level of Care: IMCU Medications reviewed and adjusted accordingly: Yes Anticipated discharge: Other Within: Other - Plan Summary Plan Summary: afia machado
[2019-04-21] MEDS ORDERED: 1/2 NORMAL SALINE 2,000 ML IV PRN (11:01)
--- NOTE | 2019-04-21 12:15 | PDOC PROGRESS REPORT ---
Subjective Progress Note for:: 04/21/19 Reason For Visit: Patient seen today. She is generally feeling much better than when she came in. She is eager to go home. She denies any history of chest pain or shortness of breath today. Labs and medications were reviewed that shows worsening creatinine. I see that Dr. Catalan is discontinued the IV Lasix and it looks like she has been over diuresed. Labs and medications were reviewed with the patient. Discussions were done with the treating nurse Adam and Dr. Catalan. Physical Exam Vital Signs: Temp Pulse Resp BP Pulse Ox 97.4 F 77 16 124/74 98 04/21/19 08:25 04/21/19 09:55 04/21/19 09:55 04/21/19 08:25 04/21/19 09:55 Intake & Output 04/20/19 04/21/19 04/22/19 06:59 06:59 06:59 Intake Total 720 1005 Output Total 1825 301 Balance -1105 704 Weight 67 kg 67 kg General appearance: PRESENT: no acute distress Respiratory exam: PRESENT: clear to auscultation manny, decreased breath sounds. ABSENT: crackles Cardiovascular exam: PRESENT: +S1, +S2 GI/Abdominal exam: PRESENT: normal bowel sounds, soft. ABSENT: organomegaly, tenderness Extremities exam: ABSENT: pedal edema Neurological exam: PRESENT: alert, awake, oriented to person, oriented to place Psychiatric exam: PRESENT: appropriate affect Skin exam: PRESENT: dry. ABSENT: erythema, mottled, rash Results Laboratory Results: 04/18/19 12:54 04/21/19 04:50 04/21/19 04:50 Sodium 138.4 Potassium 3.2 L Chloride 96 L Carbon Dioxide 29 Anion Gap 13 BUN 65 H Creatinine 3.67 H Est GFR ( Amer) 15 L Glucose 96 Calcium 10.1 04/18/19 19:07 Clean Catch Midstream Urine Culture - Final NO GROWTH 2 DAYS 04/18/19 04/18/19 04/18/19 12:54 12:54 16:09 Creatine Kinase CK-MB (CK-2) Troponin I 0.205 0.199 NT-Pro-B Natriuret Pep [id number] H 04/18/19 04/18/19 04/19/19 18:47 18:47 00:43 Creatine Kinase 42 39 CK-MB (CK-2) 1.90 Troponin I 0.233 NT-Pro-B Natriuret Pep 04/19/19 04/19/19 04/19/19 00:43 07:02 07:02 Creatine Kinase 39 CK-MB (CK-2) 1.33 1.65 Troponin I 0.239 0.282 NT-Pro-B Natriuret Pep [id number] H Impressions: Chest CT 04/18/19 17:44 IMPRESSION: Moderate bilateral pleural effusions. Mild basilar subsegmental atelectasis. Similar chronic interstitial changes in the right upper lobe. Mild interlobular septal thickening which is new compared with the prior exam. No pneumothorax. No pulmonary masses. Chest X-Ray 04/19/19 00:00 IMPRESSION: STABLE APPEARANCE. NO SIGNIFICANT CHANGE. Assessment & Plan - Diagnosis (1) ARF (acute renal failure) Qualifiers: Acute renal failure type: unspecified Qualified Code(s): N17.9 - Acute kidney failure, unspecified Is this a current diagnosis for this admission?: Yes Plan: Clinically she looks dehydrated at the moment. Labs shows worsening creatinine to 3.6 from yesterday of 2.9 with baseline of 2.5. It looks like she has rather been over diuresed. Agree with discontinuation of IV Lasix. I recommend starting her gently on some half-normal saline over the next 24 to 36 hours. Advised her that she has to stay at least overnight to see the response to that. As far as the pleural effusion is concerned we will have to follow that clinically and radiologically and see if she still needs thoracentesis. (2) Congestive heart failure (CHF) Qualifiers: Heart failure type: systolic Heart failure chronicity: acute Qualified Code(s): I50.21 - Acute systolic (congestive) heart failure Is this a current diagnosis for this admission?: Yes Plan: Clinically compensated (3) Pleural effusion due to CHF (congestive heart failure) Is this a current diagnosis for this admission?: Yes Plan: Clinically she looks better. Follow radiologically to see how it is behaving a nd see if she needs thoracentesis prior to discharge. (4) Breast cancer Qualifiers: Breast location: upper outer quadrant of breast Estrogen receptor status: positive Laterality: right Is this a current diagnosis for this admission?: Yes Plan: With bony metastasis. Status quo. (5) Hypokalemia Plan: Started on replacements. Monitor.
--- NOTE | 2019-04-21 15:05 | PDOC PROGRESS REPORT ---
Subjective Subjective:: No new symptoms. Has mild pleuritic left-sided chest pain. Otherwise doing well. She has developed acute kidney injury probably due to overdiuresis. Furosemide is on hold. Reason For Visit: ACUTE CONGESTIVE HEART FAILURE Physical Exam Vital Signs: Temp Pulse Resp BP Pulse Ox 98.2 F 78 18 124/65 98 04/21/19 12:08 04/21/19 14:00 04/21/19 12:08 04/21/19 12:08 04/21/19 12:08 Intake & Output 04/20/19 04/21/19 04/22/19 06:59 06:59 06:59 Intake Total 720 1005 720 Output Total 1825 301 1 Balance -1105 704 719 Weight 67 kg 67 kg General appearance: PRESENT: no acute distress, cooperative Head exam: PRESENT: atraumatic, normocephalic Eye exam: PRESENT: conjunctiva pink, EOMI Mouth exam: PRESENT: moist Respiratory exam: PRESENT: crackles - Left base, decreased breath sounds, symmetrical, unlabored Cardiovascular exam: PRESENT: RRR, +S1, +S2 Pulses: PRESENT: normal radial pulses Rectal exam: PRESENT: deferred Neurological exam: PRESENT: alert, altered, awake, oriented to person, oriented to place, oriented to time Skin exam: PRESENT: dry, intact, normal color Results Laboratory Results: 04/18/19 12:54 04/21/19 04:50 04/21/19 04:50 Sodium 138.4 Potassium 3.2 L Chloride 96 L Carbon Dioxide 29 Anion Gap 13 BUN 65 H Creatinine 3.67 H Est GFR ( Amer) 15 L Glucose 96 Calcium 10.1 04/18/19 19:07 Clean Catch Midstream Urine Culture - Final NO GROWTH 2 DAYS 04/18/19 04/18/19 04/18/19 12:54 12:54 16:09 Creatine Kinase CK-MB (CK-2) Troponin I 0.205 0.199 NT-Pro-B Natriuret Pep [id number] H 04/18/19 04/18/19 04/19/19 18:47 18:47 00:43 Creatine Kinase 42 39 CK-MB (CK-2) 1.90 Troponin I 0.233 NT-Pro-B Natriuret Pep 04/19/19 04/19/19 04/19/19 00:43 07:02 07:02 Creatine Kinase 39 CK-MB (CK-2) 1.33 1.65 Troponin I 0.239 0.282 NT-Pro-B Natriuret Pep [id number] H Impressions: Chest CT 04/18/19 17:44 IMPRESSION: Moderate bilateral pleural effusions. Mild basilar subsegmental atelectasis. Similar chronic interstitial changes in the right upper lobe. Mild interlobular septal thickening which is new compared with the prior exam. No pneumothorax. No pulmonary masses. Chest X-Ray 04/19/19 00:00 IMPRESSION: STABLE APPEARANCE. NO SIGNIFICANT CHANGE. Assessment & Plan - Diagnosis (1) Congestive heart failure (CHF) Qualifiers: Heart failure type: systolic Heart failure chronicity: acute Qualified Code(s): I50.21 - Acute systolic (congestive) heart failure Is this a current diagnosis for this admission?: Yes Plan: Heart failure appears to have improved. However she is developed acute kidney injury. Furosemide is on hold. Presently there is no JVD increase. (2) NSTEMI (non-ST elevated myocardial infarction) Is this a current diagnosis for this admission?: Yes Plan: Likely elevated troponins on account of congestive heart failure. Not acute coronary syndrome. No treatment (3) Breast cancer Qualifiers: Breast location: upper outer quadrant of breast Estrogen receptor status: positive Laterality: right Is this a current diagnosis for this admission?: Yes Plan: Metastatic breast cancer. Pleuritic chest pain reported left chest. (4) ICD (implantable cardioverter-defibrillator) in place Is this a current diagnosis for this admission?: Yes Plan: Patient has left-sided ICD. By her own wishes tacky therapy functions have been turned off. This was readdressed and patient maintains these wishes. And this will be respected. The site looks good. - Notes Notes: Acute decompensated congestive heart failure Intravenous furosemide was used for diuresis and now unfortunately patient has acute kidney injury with increasing creatinine level. Furosemide has been stopped Appreciate nephrology input with management of acute kidney injury.
[2019-04-21] MEDS: ATORVASTATIN CALCIUM 20 MG TABLET PO SCH (22:28)
[2019-04-22] MEDS: HEPARIN SOD (PORCINE) 5,000 UNIT/ML 1 ML VIAL SUBCUT SCH ×3 (05:14→21:48)
[2019-04-22 06:40] LABS: ANION GAP 13 (5-19); BLOOD UREA NITROGEN 66 mg/dL (7-20); CALCIUM 9.8 mg/dL (8.4-10.2); CARBON DIOXIDE 29 mmol/L (22-30); CHLORIDE 97 mmol/L (98-107); GLUCOSE 92 mg/dL (75-110); POTASSIUM 3.7 mmol/L (3.6-5.0)
[2019-04-22] MEDS ORDERED: 1/2 NORMAL SALINE 1,000 ML IV PRN (09:11)
[2019-04-22] MEDS: METOPROLOL SUCCINATE 25 MG TAB.SR.24H PO SCH (09:34)
[2019-04-22] MEDS: FAMOTIDINE 20 MG TABLET PO SCH ×2 (09:35→21:46)
[2019-04-22] MEDS: OMEGA-3 ACID ETHYL ESTERS 1 GM CAPSULE PO SCH ×2 (09:35→17:35)
[2019-04-22] MEDS: OXYCODONE HCL IR 5 MG TABLET PO PRN ×2 (09:35→21:46)
[2019-04-22] MEDS: MULTIVITAMIN TABLET PO SCH (09:36)
[2019-04-22] MEDS: LOSARTAN POTASSIUM 25 MG TABLET PO SCH (09:36)
[2019-04-22] MEDS: DOCUSATE SODIUM 100 MG CAPSULE PO SCH ×2 (09:36→17:35)
[2019-04-22] MEDS ORDERED: FENTANYL 12 MCG/HR PATCH.TD72 TD SCH (10:00)
--- NOTE | 2019-04-22 11:08 | RADIOLOGY REPORT (SQ) ---
EXAM DESCRIPTION: CT CHEST WITHOUT; CT ABD/PELVIS NO ORAL OR IV COMPLETED DATE/TIME: 04/22/2019 10:51 am; 04/22/2019 10:50 am REASON FOR STUDY: pleural effsuion; pleural effsuion/renal failure/abd cremp COMPARISON: CT chest, 04/18/2019, CT abdomen pelvis, 02/23/2019 TECHNIQUE: CT scan of the chest performed without intravenous contrast using helical scanning techni que. Images reviewed with lung, soft tissue and bone windows. Reconstructed coronal and sagittal MPR images reviewed. All images stored on PACS. CT scan of the abdomen and pelvis performed without intravenous contrast and withoutoral contrast usi ng helical scanning technique with dynamic intravenous contrast injection. Images reviewed with lung , soft tissue and bone windows. Reconstructed coronal and sagittal MPR images reviewed. All images stored on PACS. All CT scanners at this facility use dose modulation, iterative reconstruction, and/or weight based d osing when appropriate to reduce radiation dose to as low as reasonably achievable (ALARA). [facility]: Dose Right [facility]: CareDose [facility]: Dose Right [facility]: Teradose 4D [facility]: Smart [employer] RADIATION DOSE: CT Rad equipment meets quality standard of care and radiation dose reduction techniq ues were employed. CTDIvol: 5.1 - 6.5 mGy. DLP: 518 mGy-cm. mGy. LIMITATIONS: No technical limitations. FINDINGS: CHEST: AXILLAE: No adenopathy. CHEST WALL: Status post right mastectomy. No masses. No subcutaneous air. LUNGS: Unchanged fibrotic opacity of the right upper lobe, in keeping with prior radiation therapy. No acute appearing airspace opacity. No nodules or masses. No pneumothorax. No infiltrates. PLEURA: Interval reduction in volume of a previously seen effusions, now small. THYROID: No masses or significant asymmetry. HILAR AND MEDIASTINAL STRUCTURES: No identified masses or abnormal nodes. AORTA AND GREAT VESSELS: No aneurysm. HEART: No pericardial effusion. Cardiomegaly and extensive 3 vessel coronary artery calcifications. Left chest multi lead pacer. HARDWARE AND LIFELINES: None. BONES: No significant finding. OTHER: No other significant finding. ABDOMEN AND PELVIS: LIVER: Normal size. No masses. No dilated ducts. SPLEEN: Normal size. No focal lesions. PANCREAS: No masses. No significant calcifications. No adjacent inflammation or peripancreatic flui d collections. Pancreatic duct not dilated. GALLBLADDER: No identified stones by CT criteria. No inflammatory changes to suggest cholecystitis. ADRENAL GLANDS: No significant masses or asymmetry. RIGHT KIDNEY AND URETER: No solid masses. Assessment limited by lack of IV contrast. No significant c alcification. New moderate hydronephrosis and proximal hydroureter. LEFT KIDNEY AND URETER: No solid masses. Assessment limited by lack of IV contrast. No significant ca lcification. New moderate hydronephrosis and proximal hydroureter. AORTA AND VESSELS: Severe calcific atherosclerosis. RETROPERITONEUM: No retroperitoneal adenopathy, hemorrhage or masses. APPENDIX: Normal. LARGE AND SMALL BOWEL: No dilatation. No masses. No wall thickening. ABDOMINAL WALL: No hernia or masses. PERITONEAL CAVITY: No free air. No free fluid. No peritoneal implants or masses. PELVIS: No mass or free fluid. Normal bladder. BONES: No significant or acute findings. OTHER: No other significant finding. IMPRESSION: 1. Interval reduction in volume of a previously seen effusions, now small. 2. Unchanged fibrotic opacity of the right upper lobe, in keeping with prior radiation therapy. No a cute appearing airspace opacity. 3. New, moderate bilateral hydronephrosis and proximal hydroureter, of uncertain etiology. There is ill-defined soft tissue in the vicinity of the iliac bifurcation (series 3, image 58), which appears somewhat increased compared to prior examination dated 02/23/2019, difficult to evaluate due to lack of intravenous contrast. Lymphadenopathy or malignant soft tissue is not excluded. Recommend contr ast-enhanced CT with urographic delayed phase to further evaluate. 4. Postoperative findings of prior right mastectomy. 5. Chronic incidental findings including coronary artery disease and aortic atherosclerosis as don led above. TECHNICAL DOCUMENTATION: JOB ID: [id number] Quality ID # [id number]: Final reports with documentation of one or more dose reduction techniques (e.g., Au tomated exposure control, adjustment of the mA and/or kV according to patient size, use of iterative reconstruction technique) 2010 [employer]- All Rights Reserved Reading location - IP/workstation name: [email or web address]
--- NOTE | 2019-04-22 11:11 | PDOC PROGRESS REPORT ---
Subjective Progress Note for:: 04/22/19 Reason For Visit: Patient seen this morning. She generally feels comfortable but she says she feels a pressure in the right chest. She denies any history of daniele chest pains. Shortness of breath is not appreciated when lying down but she has not been exerting to see if she has it on exertion. She did receive couple of litres of saline over the last 24 hours without any issues. However all labs reviewed shows worsening renal functions. She also complains of severe consti pation. No complaints of any fever or chills. She says she is making decent amounts of urine output. No Solis catheter. Discussions were done with her daughter at the bedside as well as with Bridgett treating nurse and Dr. Catalan. Physical Exam Vital Signs: Temp Pulse Resp BP Pulse Ox 98.4 F 84 18 141/71 H 99 04/22/19 07:37 04/22/19 07:37 04/22/19 07:37 04/22/19 07:37 04/22/19 07:37 Intake & Output 04/21/19 04/22/19 04/23/19 06:59 06:59 06:59 Intake Total 1005 1160 Output Total 301 51 Balance 704 1109 Weight 67 kg 64.3 kg General appearance: PRESENT: no acute distress Respiratory exam: PRESENT: clear to auscultation manny, decreased breath sounds - Especially in the right lungs.. ABSENT: chest wall tenderness, crackles Cardiovascular exam: PRESENT: +S1, +S2 GI/Abdominal exam: PRESENT: normal bowel sounds, soft. ABSENT: organomegaly, tenderness Extremities exam: ABSENT: pedal edema Neurological exam: PRESENT: alert, awake, oriented to person, oriented to place Psychiatric exam: PRESENT: anxious Skin exam: ABSENT: cyanosis, erythema, mottled, rash Results Laboratory Results: 04/18/19 12:54 04/22/19 05:30 04/22/19 05:30 Sodium 138.9 Potassium 3.7 Chloride 97 L Carbon Dioxide 29 Anion Gap 13 BUN 66 H Creatinine 4.13 H Est GFR ( Amer) 13 L Glucose 92 Calcium 9.8 Magnesium 1.9 04/18/19 04/18/19 04/18/19 12:54 12:54 16:09 Creatine Kinase CK-MB (CK-2) Troponin I 0.205 0.199 NT-Pro-B Natriuret Pep 82320 H 04/18/19 04/18/19 04/19/19 18:47 18:47 00:43 Creatine Kinase 42 39 CK-MB (CK-2) 1.90 Troponin I 0.233 NT-Pro-B Natriuret Pep 04/19/19 04/19/19 04/19/19 00:43 07:02 07:02 Creatine Kinase 39 CK-MB (CK-2) 1.33 1.65 Troponin I 0.239 0.282 NT-Pro-B Natriuret Pep 77220 H Impressions: Chest X-Ray 04/19/19 00:00 IMPRESSION: STABLE APPEARANCE. NO SIGNIFICANT CHANGE. Assessment & Plan - Diagnosis (1) ARF (acute renal failure) Qualifiers: Acute renal failure type: unspecified Qualified Code(s): N17.9 - Acute kidney failure, unspecified Is this a current diagnosis for this admission?: Yes Plan: Clinically she continues to look dehydrated at the moment. Labs shows worsening creatinine to 4.1/3.6 with baseline of 2.5. I recommend starting her gently on some half-normal saline over the next 24 to 36 hours. As far as the pleural effusion is concerned we will have to follow that clinically and radiologically and see if she still needs thoracentesis. (2) Congestive heart failure (CHF) Qualifiers: Heart failure type: systolic Heart failure chronicity: acute Qualified Code(s): I50.21 - Acute systolic (congestive) heart failure Is this a current diagnosis for this admission?: Yes Plan: Clinically compensated (3) Pleural effusion due to CHF (congestive heart failure) Is this a current diagnosis for this admission?: Yes Plan: Clinically she looks better. Follow radiologically to see how it is behaving and see if she needs thoracentesis prior to discharge.I am ordering a chest x- ray today. (4) Breast cancer Qualifiers: Breast location: upper outer quadrant of breast Estrogen receptor status: positive Laterality: right Is this a current diagnosis for this admission?: Yes Plan: With bony metastasis. Status quo. (5) Hypokalemia Plan: Started on replacements. Monitor. (6) Constipation Plan: Currently on Colace. Order soapsuds.
--- NOTE | 2019-04-22 12:46 | PDOC PROGRESS REPORT ---
Subjective Progress Note for:: 04/22/19 Subjective:: Patient's kidney function is worsening Patient CT scan of the abdomen and pelvis scan So hydronephrosis hydroureter is questionable mass Complains of abdominal cramps No chest pain no short of breath Reason For Visit: ACUTE CONGESTIVE HEART FAILURE Physical Exam Vital Signs: Temp Pulse Resp BP Pulse Ox 98.4 F 72 16 141/71 H 94 04/22/19 07:37 04/22/19 12:25 04/22/19 12:25 04/22/19 07:37 04/22/19 12:25 Intake & Output 04/21/19 04/22/19 04/23/19 06:59 06:59 06:59 Intake Total 1005 1160 Output Total 301 51 Balance 704 1109 Weight 67 kg 64.3 kg General appearance: PRESENT: no acute distress, well-developed, well-nourished Head exam: PRESENT: atraumatic, normocephalic Eye exam: PRESENT: conjunctiva pink, EOMI, PERRLA. ABSENT: scleral icterus Ear exam: PRESENT: normal external ear exam Mouth exam: PRESENT: moist, tongue midline Neck exam: PRESENT: full ROM. ABSENT: carotid bruit, JVD, lymphadenopathy, thyromegaly Respiratory exam: PRESENT: clear to auscultation manny Cardiovascular exam: PRESENT: RRR. ABSENT: diastolic murmur, rubs, systolic murmur Pulses: PRESENT: normal dorsalis pedis pul, +2 pedal pulses bilateral Vascular exam: PRESENT: normal capillary refill GI/Abdominal exam: PRESENT: normal bowel sounds, soft. ABSENT: distended, guarding, mass, organolmegaly, rebound, tenderness Rectal exam: PRESENT: deferred Neurological exam: PRESENT: alert, awake, oriented to person, oriented to place, oriented to time, oriented to situation, CN II-XII grossly intact. ABSENT: motor sensory deficit Psychiatric exam: PRESENT: appropriate affect, normal mood. ABSENT: homicidal ideation, suicidal ideation Skin exam: PRESENT: dry, intact, warm. ABSENT: cyanosis, rash Results Laboratory Results: 04/18/19 12:54 04/22/19 05:30 04/22/19 05:30 Sodium 138.9 Potassium 3.7 Chloride 97 L Carbon Dioxide 29 Anion Gap 13 BUN 66 H Creatinine 4.13 H Est GFR ( Amer) 13 L Glucose 92 Calcium 9.8 Magnesium 1.9 04/18/19 04/18/19 04/18/19 12:54 12:54 16:09 Creatine Kinase CK-MB (CK-2) Troponin I 0.205 0.199 NT-Pro-B Natriuret Pep 20333 H 04/18/19 04/18/19 04/19/19 18:47 18:47 00:43 Creatine Kinase 42 39 CK-MB (CK-2) 1.90 Troponin I 0.233 NT-Pro-B Natriuret Pep 04/19/19 04/19/19 04/19/19 00:43 07:02 07:02 Creatine Kinase 39 CK-MB (CK-2) 1.33 1.65 Troponin I 0.239 0.282 NT-Pro-B Natriuret Pep 21344 H Impressions: Abdomen/Pelvis CT 04/22/19 00:00 IMPRESSION: 1. Interval reduction in volume of a previously seen effusions, now small. 2. Unchanged fibrotic opacity of the right upper lobe, in keeping with prior radiation therapy. No acute appearing airspace opacity. 3. New, moderate bilateral hydronephrosis and proximal hydroureter, of uncertain etiology. There is ill-defined soft tissue in the vicinity of the iliac bifurcation (series 3, image 58), which appears somewhat increased compared to prior examination dated 02/23/2019, difficult to evaluate due to lack of intravenous contrast. Lymphadenopathy or malignant soft tissue is not excluded. Recommend contrast-enhanced CT with urographic delayed phase to further evaluate. 4. Postoperative findings of prior right mastectomy. 5. Chronic incidental findings including coronary artery disease and aortic atherosclerosis as detailed above. Chest CT 04/22/19 00:00 IMPRESSION: 1. Interval reduction in volume of a previously seen effusions, now small. 2. Unchanged fibrotic opacity of the right upper lobe, in keeping with prior radiation therapy. No acute appearing airspace opacity. 3. New, moderate bilateral hydronephrosis and proximal hydroureter, of uncertain etiology. There is ill-defined soft tissue in the vicinity of the iliac bifurcation (series 3, image 58), which appears somewhat increased compared to prior examination dated 02/23/2019, difficult to evaluate due to lack of intravenous contrast. Lymphadenopathy or malignant soft tissue is not excluded. Recommend contrast-enhanced CT with urographic delayed phase to further evaluate. 4. Postoperative findings of prior right mastectomy. 5. Chronic incidental findings including coronary artery disease and aortic atherosclerosis as detailed above. Assessment & Plan - Diagnosis (1) Congestive heart failure (CHF) Qualifiers: Heart failure type: systolic Heart failure chronicity: acute Qualified Code(s): I50.21 - Acute systolic (congestive) heart failure Is this a current diagnosis for this admission?: Yes (2) ARF (acute renal failure) Qualifiers: Acute renal failure type: unspecified Qualified Code(s): N17.9 - Acute kidney failure, unspecified Is this a current diagnosis for this admission?: Yes (3) NSTEMI (non-ST elevated myocardial infarction) Is this a current diagnosis for this admission?: Yes (4) Pleural effusion due to CHF (congestive heart failure) Is this a current diagnosis for this admission?: Yes (5) Pulmonary vascular congestion Is this a current diagnosis for this admission?: Yes (6) Breast cancer Qualifiers: Breast location: upper outer quadrant of breast Estrogen receptor status: positive Laterality: right Is this a current diagnosis for this admission?: Yes (7) Chronic obstructive pulmonary disease (COPD) Qualifiers: COPD type: unspecified COPD Qualified Code(s): J44.9 - Chronic obstructive pulmonary disease, unspecified Is this a current diagnosis for this admission?: Yes (8) Cardiac defibrillator in situ Is this a current diagnosis for this admission?: Yes - Time Time Spent with patient: 15-24 minutes Level of Care: IMCU Medications reviewed and adjusted accordingly: Yes Anticipated discharge: Home with Homehealth Within: Other - Plan Summary Plan Summary: We put the Solis catheter due to the hydroureter hydronephrosis Currently hold the Lasix Discussed with the Dr. Tello
--- NOTE | 2019-04-22 13:15 | RADIOLOGY REPORT (SQ) ---
EXAM DESCRIPTION: CHEST SINGLE VIEW COMPLETED DATE/TIME: 04/22/2019 11:42 am REASON FOR STUDY: DYSPNEA. PLEURAL EFFUSION COMPARISON: Chest film 01/01/2014, 04/19/2019 CT chest 02/23/2019 EXAM PARAMETERS: NUMBER OF VIEWS: One view. TECHNIQUE: Single frontal radiographic view of the chest acquired. RADIATION DOSE: NA LIMITATIONS: None. FINDINGS: LUNGS AND PLEURA: Stable bandlike scarring or atelectasis at the right lung apex. Chronic elevation right hemidiaphragm No focal infiltrates. No pleural effusion. No pneumothorax. MEDIASTINUM AND HILAR STRUCTURES: No masses. Contour normal. HEART AND VASCULAR STRUCTURES: Stable mild cardiomegaly BONES: No acute findings. HARDWARE: Single lead pacemaker unchanged OTHER: No other significant finding. IMPRESSION: No acute findings TECHNICAL DOCUMENTATION: JOB ID: [id number] [employer]80[employer]- All Rights Reserved Reading location - IP/workstation name: [email or web address]
[2019-04-22] MEDS: ATORVASTATIN CALCIUM 20 MG TABLET PO SCH (21:46)
[2019-04-22] MEDS: TEMAZEPAM 15 MG CAPSULE PO PRN (21:46)
[2019-04-23 05:33] LABS: HEMATOCRIT 27.7 % (36.0-47.0); HEMOGLOBIN 9.6 g/dL (12.0-15.5); MEAN CORPUSCULAR HEMOGLOBIN 35.5 pg (27.0-33.4); MEAN CORPUSCULAR HGB CONC 34.5 g/dL (32.0-36.0); MEAN CORPUSCULAR VOLUME 103 fl (80-97); PLATELET COUNT 115 10^3/uL (150-450); RED BLOOD COUNT 2.69 10^6/uL (3.72-5.28); RED CELL DISTRIBUTION WIDTH 15.1 % (11.5-14.0); WHITE BLOOD COUNT 3.1 10^3/uL (4.0-10.5)
[2019-04-23] MEDS: HEPARIN SOD (PORCINE) 5,000 UNIT/ML 1 ML VIAL SUBCUT SCH ×3 (05:40→21:04)
[2019-04-23 05:51] LABS: ANION GAP 10 (5-19); BLOOD UREA NITROGEN 65 mg/dL (7-20); CALCIUM 8.8 mg/dL (8.4-10.2); CARBON DIOXIDE 28 mmol/L (22-30); CHLORIDE 99 mmol/L (98-107); GLUCOSE 87 mg/dL (75-110); POTASSIUM 3.8 mmol/L (3.6-5.0)
[2019-04-23] MEDS: OXYCODONE HCL IR 5 MG TABLET PO PRN ×4 (05:55→21:03)
[2019-04-23] MEDS ORDERED: BISACODYL 10 MG SUPP.RECT PR PRN (07:58)
--- NOTE | 2019-04-23 08:04 | PDOC PROGRESS REPORT ---
Subjective Progress Note for:: 04/23/19 Subjective:: Patient is quite upset today. She states that her came and spoke with her last night and told her that she needs to stay with the kids and that he is not ready for her to join him yet. Her kids are at bedside and are awaiting to talk with Dr. Catalan. They are requesting Hospice on discharge. ROS: Patient denies dyspnea. she asks for suppository as enema only helped her pressure temporarily. No back/flank pain. Reason For Visit: ACUTE CONGESTIVE HEART FAILURE Physical Exam Vital Signs: Temp Pulse Resp BP Pulse Ox 98.8 F 80 22 H 129/65 H 100 04/23/19 04:23 04/23/19 04:23 04/23/19 04:23 04/23/19 04:23 04/23/19 04:23 Intake & Output 04/22/19 04/23/19 04/24/19 06:59 06:59 06:59 Intake Total 1160 1880 Output Total 51 525 Balance 1109 1355 Weight 64.3 kg 64.8 kg General appearance: PRESENT: no acute distress, thin Head exam: PRESENT: normocephalic Respiratory exam: PRESENT: unlabored Extremities exam: ABSENT: pedal edema Musculoskeletal exam: PRESENT: normal inspection Neurological exam: PRESENT: alert, awake Psychiatric exam: PRESENT: appropriate affect Skin exam: PRESENT: normal color Results Laboratory Results: 04/23/19 04:59 04/23/19 04:59 04/23/19 04/23/19 04:59 04:59 WBC 3.1 L RBC 2.69 L Hgb 9.6 L Hct 27.7 L MCV 103 H MCH 35.5 H MCHC 34.5 RDW 15.1 H Plt Count 115 L Sodium 136.6 L Potassium 3.8 Chloride 99 Carbon Dioxide 28 Anion Gap 10 BUN 65 H Creatinine 3.91 H Est GFR ( Amer) 13 L Glucose 87 Calcium 8.8 04/18/19 04/18/19 04/18/19 12:54 12:54 16:09 Creatine Kinase CK-MB (CK-2) Troponin I 0.205 0.199 NT-Pro-B Natriuret Pep [id number] H 04/18/19 04/18/19 04/19/19 18:47 18:47 00:43 Creatine Kinase 42 39 CK-MB (CK-2) 1.90 Troponin I 0.233 NT-Pro-B Natriuret Pep 04/19/19 04/19/19 04/19/19 00:43 07:02 07:02 Creatine Kinase 39 CK-MB (CK-2) 1.33 1.65 Troponin I 0.239 0.282 NT-Pro-B Natriuret Pep 35110 H Impressions: Abdomen/Pelvis CT 04/22/19 00:00 IMPRESSION: 1. Interval reduction in volume of a previously seen effusions, now small. 2. Unchanged fibrotic opacity of the right upper lobe, in keeping with prior rad iation therapy. No acute appearing airspace opacity. 3. New, moderate bilateral hydronephrosis and proximal hydroureter, of uncertain etiology. There is ill-defined soft tissue in the vicinity of the iliac bifurcation (series 3, image 58), which appears somewhat increased compared to prior examination dated 02/23/2019, difficult to evaluate due to lack of intravenous contrast. Lymphadenopathy or malignant soft tissue is not excluded. Recommend contrast-enhanced CT with urographic delayed phase to further evaluate. 4. Postoperative findings of prior right mastectomy. 5. Chronic incidental findings including coronary artery disease and aortic atherosclerosis as detailed above. Chest CT 04/22/19 00:00 IMPRESSION: 1. Interval reduction in volume of a previously seen effusions, now small. 2. Unchanged fibrotic opacity of the right upper lobe, in keeping with prior radiation therapy. No acute appearing airspace opacity. 3. New, moderate bilateral hydronephrosis and proximal hydroureter, of uncertain etiology. There is ill-defined soft tissue in the vicinity of the iliac bifurcation (series 3, image 58), which appears somewhat increased compared to prior examination dated 02/23/2019, difficult to evaluate due to lack of intravenous contrast. Lymphadenopathy or malignant soft tissue is not excluded. Recommend contrast-enhanced CT with urographic delayed phase to further evaluate. 4. Postoperative findings of prior right mastectomy. 5. Chronic incidental findings including coronary artery disease and aortic atherosclerosis as detailed above. Chest X-Ray 04/22/19 00:00 IMPRESSION: No acute findings Assessment & Plan - Diagnosis (1) Congestive heart failure (CHF) Qualifiers: Heart failure type: systolic Heart failure chronicity: acute Qualified Code(s): I50.21 - Acute systolic (congestive) heart failure Is this a current diagnosis for this admission?: Yes (2) Pleural effusion due to CHF (congestive heart failure) Is this a current diagnosis for this admission?: Yes (3) Breast cancer Qualifiers: Breast location: upper outer quadrant of breast Estrogen receptor status: positive Laterality: right Is this a current diagnosis for this admission?: Yes Plan: No further treatment planned. Patient requests Home Hospice services. I will arrange ANNA. She requests discharge tomorrow if possible. (4) Hydronephrosis Is this a current diagnosis for this admission?: Yes Plan: bilateral nephrostomy tubes planned for later today. (5) Constipation Is this a current diagnosis for this admission?: Yes Plan: Will order suppository for later today. - Time Time Spent with patient: 15-24 minutes - Plan Summary Plan Summary: I spoke with Dr. Catalan and all are in agreement with plan.
[2019-04-23] MEDS ORDERED: LIDOCAINE 1% INJ-PF (10 MG/ML) 30 ML SDV ONE (09:00)
[2019-04-23] MEDS ORDERED: MIDAZOLAM HCL INJ 5 MG/1 ML VIAL ONE (09:03)
[2019-04-23] MEDS ORDERED: CEFAZOLIN INJ 1 GM VIAL ONE (09:03)
[2019-04-23] MEDS ORDERED: FENTANYL CITRATE INJ/PF 100 MCG/2 ML AMPUL ONE (09:04)
[2019-04-23 09:52] LABS: INTERNATIONAL RATION (INR) 1.13; PARTIAL THROMBOPLASTIN TIME 28.2 SEC (23.5-35.8); PROTHROMBIN TIME 14.6 SEC (11.4-15.4)
[2019-04-23] MEDS ORDERED: CEFTRIAXONE 1 GM/D5W RTU 1 GM/50 ML RTUPB IV ONE (10:00)
--- NOTE | 2019-04-23 11:43 | PDOC PROGRESS REPORT ---
Subjective Progress Note for:: 04/23/19 Subjective:: Patient is a CT scan of the abdomen and pelvis suggest the hydroureter hydronephrosis and a questionable pelvic mass discussed with the oncology and suggest the nephrostomy tubes and discussed with the urology Dr. Escobar at the [facility] and suggest to go to the interventional radiology to put the nephrostomy tubes for the external decompressions Patient's kidney function is also improving Very extensive discussion with the patient's which currently DNR/DNI do not want to go for any further interventions except the nephrostomy tube because of the comfort care and wants to go for hospice cares and discussed with the daughter on the bedside and suggest to go for nephrostomy tubes and then hospice care tomorrow morninPatient seen by the oncology And also discussed by her the family and the patient's and proceed with the hospice care she will make arrangement for the hospice Reason For Visit: ACUTE CONGESTIVE HEART FAILURE Physical Exam Vital Signs: Temp Pulse Resp BP Pulse Ox 99.2 F 83 18 125/65 99 04/23/19 08:28 04/23/19 08:28 04/23/19 08:28 04/23/19 08:28 04/23/19 08:28 Intake & Output 04/22/19 04/23/19 04/24/19 06:59 06:59 06:59 Intake Total 1160 1880 Output Total 51 525 Balance 1109 1355 Weight 64.3 kg 64.8 kg General appearance: PRESENT: no acute distress, well-developed, well-nourished Head exam: PRESENT: atraumatic, normocephalic Eye exam: PRESENT: conjunctiva pink, EOMI, PERRLA. ABSENT: scleral icterus Ear exam: PRESENT: normal external ear exam Mouth exam: PRESENT: moist, tongue midline Neck exam: PRESENT: full ROM. ABSENT: carotid bruit, JVD, lymphadenopathy, thyromegaly Respiratory exam: PRESENT: clear to auscultation manny Cardiovascular exam: PRESENT: RRR. ABSENT: diastolic murmur, rubs, systolic murmur Pulses: PRESENT: normal dorsalis pedis pul, +2 pedal pulses bilateral Vascular exam: PRESENT: normal capillary refill GI/Abdominal exam: PRESENT: normal bowel sounds, soft. ABSENT: distended, guarding, mass, organolmegaly, rebound, tenderness Rectal exam: PRESENT: deferred Neurological exam: PRESENT: alert, awake, oriented to person, oriented to place, oriented to time, oriented to situation, CN II-XII grossly intact. ABSENT: motor sensory deficit Psychiatric exam: PRESENT: appropriate affect, normal mood. ABSENT: homicidal ideation, suicidal ideation Skin exam: PRESENT: dry, intact, warm. ABSENT: cyanosis, rash Results Laboratory Results: 04/23/19 04:59 04/23/19 04:59 04/23/19 04/23/19 04:59 04:59 WBC 3.1 L RBC 2.69 L Hgb 9.6 L Hct 27.7 L MCV 103 H MCH 35.5 H MCHC 34.5 RDW 15.1 H Plt Count 115 L Sodium 136.6 L Potassium 3.8 Chloride 99 Carbon Dioxide 28 Anion Gap 10 BUN 65 H Creatinine 3.91 H Est GFR ( Amer) 13 L Glucose 87 Calcium 8.8 04/18/19 04/18/19 04/18/19 12:54 12:54 16:09 Creatine Kinase CK-MB (CK-2) Troponin I 0.205 0.199 NT-Pro-B Natriuret Pep 93805 H 04/18/19 04/18/19 04/19/19 18:47 18:47 00:43 Creatine Kinase 42 39 CK-MB (CK-2) 1.90 Troponin I 0.233 NT-Pro-B Natriuret Pep 04/19/19 04/19/19 04/19/19 00:43 07:02 07:02 Creatine Kinase 39 CK-MB (CK-2) 1.33 1.65 Troponin I 0.239 0.282 NT-Pro-B Natriuret Pep 72897 H Impressions: Abdomen/Pelvis CT 04/22/19 00:00 IMPRESSION: 1. Interval reduction in volume of a previously seen effusions, now small. 2. Unchanged fibrotic opacity of the right upper lobe, in keeping with prior radiation therapy. No acute appearing airspace opacity. 3. New, moderate bilateral hydronephrosis and proximal hydroureter, of uncertain etiology. There is ill-defined soft tissue in the vicinity of the iliac bifurcation (series 3, image 58), which appears somewhat increased compared to prior examination dated 02/23/2019, difficult to evaluate due to lack of intravenous contrast. Lymphadenopathy or malignant soft tissue is not excluded. Recommend contrast-enhanced CT with urographic delayed phase to further evaluate. 4. Postoperative findings of prior right mastectomy. 5. Chronic incidental findings including coronary artery disease and aortic at herosclerosis as detailed above. Chest CT 04/22/19 00:00 IMPRESSION: 1. Interval reduction in volume of a previously seen effusions, now small. 2. Unchanged fibrotic opacity of the right upper lobe, in keeping with prior radiation therapy. No acute appearing airspace opacity. 3. New, moderate bilateral hydronephrosis and proximal hydroureter, of uncertain etiology. There is ill-defined soft tissue in the vicinity of the iliac bifurcation (series 3, image 58), which appears somewhat increased compared to prior examination dated 02/23/2019, difficult to evaluate due to lack of intravenous contrast. Lymphadenopathy or malignant soft tissue is not excluded. Recommend contrast-enhanced CT with urographic delayed phase to further evaluate. 4. Postoperative findings of prior right mastectomy. 5. Chronic incidental findings including coronary artery disease and aortic atherosclerosis as detailed above. Chest X-Ray 04/22/19 00:00 IMPRESSION: No acute findings Assessment & Plan - Diagnosis (1) Congestive heart failure (CHF) Qualifiers: Heart failure type: systolic Heart failure chronicity: acute Qualified Code(s): I50.21 - Acute systolic (congestive) heart failure Is this a current diagnosis for this admission?: Yes (2) ARF (acute renal failure) Qualifiers: Acute renal failure type: unspecified Qualified Code(s): N17.9 - Acute kidney failure, unspecified Is this a current diagnosis for this admission?: Yes (3) NSTEMI (non-ST elevated myocardial infarction) Is this a current diagnosis for this admission?: Yes (4) Pleural effusion due to CHF (congestive heart failure) Is this a current diagnosis for this admission?: Yes (5) Pulmonary vascular congestion Is this a current diagnosis for this admission?: Yes (6) Breast cancer Qualifiers: Breast location: upper outer quadrant of breast Estrogen receptor status: positive Laterality: right Is this a current diagnosis for this admission?: Yes (7) Chronic obstructive pulmonary disease (COPD) Qualifiers: COPD type: unspecified COPD Qualified Code(s): J44.9 - Chronic obstructive pulmonary disease, unspecified Is this a current diagnosis for this admission?: Yes (8) Cardiac defibrillator in situ Is this a current diagnosis for this admission?: Yes (9) Hydronephrosis Qualifiers: Hydronephrosis type: unspecified Qualified Code(s): N13.30 - Unspecified hydronephrosis Is this a current diagnosis for this admission?: Yes Plan: Patient is scheduled for nephrostomy tube placement - Time Time Spent with patient: 15-24 minutes Level of Care: IMCU Medications reviewed and adjusted accordingly: Yes Anticipated discharge: Hospice Within: within 24 hours - Plan Summary Plan Summary: Discussed with the patient's and the family oncology urology patient is scheduled for the nephrostomy tube placement in tomorrow morning patient is discharged with hospice care
[2019-04-23] MEDS: DOCUSATE SODIUM 100 MG CAPSULE PO SCH ×2 (12:34→17:32)
[2019-04-23] MEDS: OMEGA-3 ACID ETHYL ESTERS 1 GM CAPSULE PO SCH ×2 (12:35→17:32)
[2019-04-23] MEDS: METOPROLOL SUCCINATE 25 MG TAB.SR.24H PO SCH (12:35)
[2019-04-23] MEDS: LOSARTAN POTASSIUM 25 MG TABLET PO SCH (12:35)
[2019-04-23] MEDS: MULTIVITAMIN TABLET PO SCH (12:35)
[2019-04-23] MEDS: FAMOTIDINE 20 MG TABLET PO SCH ×2 (12:35→21:04)
[2019-04-23] MEDS: FENTANYL 25 MCG/HR PATCH.TD72 TD SCH (14:43)
--- NOTE | 2019-04-23 15:17 | RADIOLOGY REPORT (SQ) ---
EXAM DESCRIPTION: FLUORO NEEDLE PLACEMENT; ADDITIONAL CHARGES; NEPHROSTOMY CATH PLACEMENT; GUIDANCE ULTRASOUND COMPLETED DATE/TIME: 04/23/2019 11:28 am; 04/23/2019 12:53 pm REASON FOR STUDY: LEFT KIDNEY HYDRO; NEPHROSTOMY TUBE PLACEMENT; RIGHT KIDNEY HYDRO; HYDRO COMPARISON: CT of the abdomen and pelvis without contrast from 04/22/2019. TECHNIQUE: The procedure, risks, benefits, and alternatives were discussed with the patient in the p reprocedural area, and all questions were answered. Informed consent was obtained verbally and in wri ting. The patient was then brought to the procedural suite, positioned prone on the fluoroscopy table, and a time-out was performed. After that, the flanks were prepped and draped with 2% chlorhexidine utili zing standard sterile technique. Then, after the selected percutaneous access site was anesthetized with 1% lidocaine, ultrasound guid ance was used to advance a 21-gauge AccuStick needle into a left posterior inferior calyx. After that , contrast was injected through the needle and it demonstrated opacification of the renal calyces and pelvis. A 0.018 inch guidewire wire was then inserted through the needle and advanced into the uret er. The needle was then exchanged over the guidewire for an AccuStick set. The wire and inner cannul a/metal stiffener of the set were next removed and a 0.035 inch guidewire was advanced through the ou ter sheath of the AccuStick set into the ureter. The percutaneous tract was then dilated up to 8 Fren ch. After the tract was dilated, an 8 [place]ese nephrostomy catheter was advanced over the wire and form ed within the renal pelvis. Once the position of the catheter was confirmed with an injection of cont rast, the catheter was flushed, secured in place with a suture, and attached to a drainage bag. Attention was then turned to the right-side. Once the selected percutaneous access site was anesthet ized with 1% lidocaine, ultrasound guidance was used to advance a 21-gauge AccuStick needle into a ri ght posterior interpolar calyx. After that, contrast was injected through the needle and it demonstra vijaya opacification of the renal calyces and pelvis. A 0.018 inch guidewire wire was then inserted thr ough the needle and advanced into the ureter. The needle was then exchanged over the guidewire for a n AccuStick set. The wire and inner cannula/metal stiffener of the set were next removed and a 0.035 inch guidewire was advanced through the outer sheath of the AccuStick set into the ureter. The percut aneous tract was then dilated up to 8 [place]. After the tract was dilated, an 8 [place]ese nephrostomy ca theter was advanced over the wire and formed within the renal pelvis. Once the position of the cathet er was confirmed with an injection of contrast, the catheter was flushed, secured in place with a sut ure, and attached to a drainage bag. The patient tolerated the procedure well without immediate complication. At the end of the procedure the patient's condition was unchanged from the preprocedural baseline. IV conscious sedation was administered at the direction of the performing physician by a shon mancini. 2 milligrams of Versed and 50 micrograms of fentanyl. Physiologic monitoring was provided befor e, during, and after sedation. The total sedation time was 45 minutes. Documentation of fxzr-[id number] time performing proceduralist spent monitoring the patient: 60 minutes. RADIATION DOSE: Fluoroscopy Time: 4.7 minutes. LIMITATIONS: None. FINDINGS: Integrated into the Technique. IMPRESSION: Successful placement of bilateral 8 [place]ese nephrostomy catheters utilizing fluoroscopic and sonographic guidance. The catheters were attached to drainage bags and should be exchange in 6 t o 8 weeks. TECHNICAL DOCUMENTATION: JOB ID: [id number] [employer]- All Rights Reserved Reading location - IP/workstation name: [email or web address]
[2019-04-23] MEDS: TEMAZEPAM 15 MG CAPSULE PO PRN (21:03)
[2019-04-23] MEDS: ATORVASTATIN CALCIUM 20 MG TABLET PO SCH (21:04)
[2019-04-24] MEDS: OXYCODONE HCL IR 5 MG TABLET PO PRN (02:56)
[2019-04-24] MEDS: DOCUSATE SODIUM 100 MG CAPSULE PO SCH (09:36)
[2019-04-24] MEDS: MULTIVITAMIN TABLET PO SCH (09:36)
[2019-04-24] MEDS: OMEGA-3 ACID ETHYL ESTERS 1 GM CAPSULE PO SCH (09:36)
[2019-04-24] MEDS: FAMOTIDINE 20 MG TABLET PO SCH (09:36)
[2019-04-24] MEDS: METOPROLOL SUCCINATE 25 MG TAB.SR.24H PO SCH (09:36)
[2019-04-24] MEDS: LOSARTAN POTASSIUM 25 MG TABLET PO SCH (09:36)
[2019-04-24] MEDS: HEPARIN SOD (PORCINE) 5,000 UNIT/ML 1 ML VIAL SUBCUT SCH (09:36)
[2019-04-24 10:39] VITALS: BP 145/92
--- NOTE | 2019-05-07 15:51 | PDOC DISCHARGE SUMMARY ---
Impression - Admit/DC Date/PCP Admission Date/Primary Care Provider: 04/18/19 17:12 FLAVIO MONTANEZ MD Discharge Date: 04/24/19 - Discharge Diagnosis (1) Congestive heart failure (CHF) Is this a current diagnosis for this admission?: Yes (2) ARF (acute renal failure) Is this a current diagnosis for this admission?: Yes (3) NSTEMI (non-ST elevated myocardial infarction) Is this a current diagnosis for this admission?: Yes (4) Pleural effusion due to CHF (congestive heart failure) Is this a current diagnosis for this admission?: Yes (5) Pulmonary vascular congestion Is this a current diagnosis for this admission?: Yes (6) Breast cancer Is this a current diagnosis for this admission?: Yes (7) Chronic obstructive pulmonary disease (COPD) Is this a current diagnosis for this admission?: Yes (8) Cardiac defibrillator in situ Is this a current diagnosis for this admission?: Yes (9) Hydronephrosis Is this a current diagnosis for this admission?: Yes - Additional Information Resuscitation Status: Do Not Resuscitate Discharge Diet: Cardiac, Diabetic Discharge Activity: Activity As Tolerated, Balance Activity w/Rest, Weigh Daily Referrals: FLAVIO MONTANEZ MD [Primary Care Provider] - 05/06/19 10:15 am Home Medications: Calcium Carbonate/Vitamin D3 [Calcium 600-Vit D3 200 Tablet] 1 tab PO DAILY 12/31/13 Furosemide [Lasix 40 mg Tablet] 40 mg PO QAM 12/31/13 Multivitamin [Multi-Vitamin Daily] 1 tab PO DAILY 12/31/13 Anastrozole [Arimidex 1 mg Tablet] 1 mg PO QHS #30 tablet 01/07/14 Metoprolol Succinate 25 mg PO DAILY #30 tab.sr.24h 01/07/14 Spironolactone [Aldactone 25 mg Tablet] 25 mg PO DAILY #30 tablet 01/07/14 Aspirin [Aspirin EC] 81 mg PO DAILY 05/20/17 Colchicine [Colcrys 0.6 mg Tablet] 1 tab PO DAILY 05/20/17 Nitroglycerin 0.4 mg SL PRN PRN 05/20/17 Ondansetron [Zofran Odt 4 mg Tablet] 1 tab PO Q6HP PRN 05/20/17 Temazepam [Restoril 15 mg Capsule] 15 mg PO HSP PRN 05/20/17 Docusate Sodium [Colace 100 mg Capsule] 100 mg PO BID 05/21/17 Losartan Potassium [Cozaar 25 mg Tablet] 25 mg PO DAILY 05/21/17 [place]-3 Fatty Acids/Fish Oil [[place] 3 Fish Oil Softgel] 1 cap PO BID 05/21/17 Oxycodone HCl [Oxy-Ir 5 mg Tablet] 5 mg PO Q6HP PRN 05/21/17 Rosuvastatin Calcium [Crestor 10 mg Tablet] 10 mg PO DAILY 05/21/17 Oxycodone HCl [Oxy-Ir 5 mg Tablet] 10 mg PO Q6HP PRN tablet 05/27/17 Fentanyl [Duragesic 12 Mcg/Hr Transdermal Patch] 1 each TD Q3D 04/19/19 Ribociclib Succinate/Letrozole [[place] Femara 200 mg Co-Pack] 200 mg PO DAILY 04/19/19 History of Present Illiness History of Present Illness: ROXANE RYAN is a 79 year old female This is a 79-year-old female's with a history of the systolic congestive heart failure with EF is less than 20%'s status post defibrillator history of the chronic kidney disease stage III currently follow with the Dr. Tello with a history of the breast cancer with the mets in the bone currently on a p.o. medications currently see oncology for that received the radiation's treatment 2 months back came to the emergency department with a complaining of shortness of the breath and not feeling well In the emergency department patient is found some pulmonary vascular congestions. Effusions patient's proBNP was elevated to 26,000's which consistence with the acute congestive heart failure patient received the IV Lasix and patient is feeling so much better Patient's denied any chest pain denied any fever no chills some some mild cough and wheezing Patient claimed that her defibrillator was off right now because patient's request patient is to be a DNR and DNI Patient's troponin was elevated seen by the project developer suggest possible related to the heart failure and non-ST [place] Cussed with the family and the bedside regarding the patient's current conditions Hospital Course Hospital Course: This is a 79-year-old female admitting in the hospital follow the above conditions patient underwent for the nephrostomy tube placement due to the hydronephrosis and patient's underwent for the hospice and comfort care at home Physical Exam Vital Signs: Temp Pulse Resp BP Pulse Ox 98.3 F 77 18 145/92 H 96 04/24/19 10:37 04/24/19 10:37 04/24/19 10:37 04/24/19 10:37 04/24/19 10:37 General appearance: PRESENT: no acute distress Eye exam: PRESENT: PERRLA GI/Abdominal exam: PRESENT: normal bowel sounds Neurological exam: PRESENT: alert, awake, oriented to person Results Laboratory Results: WBC 3.1 10^3/uL (4.0-10.5) L 04/23/19 04:59 RBC 2.69 10^6/uL (3.72-5.28) L 04/23/19 04:59 Hgb 9.6 g/dL (12.0-15.5) L 04/23/19 04:59 Hct 27.7 % (36.0-47.0) L 04/23/19 04:59 MCV 103 fl (80-97) H 04/23/19 04:59 MCH 35.5 pg (27.0-33.4) H 04/23/19 04:59 MCHC 34.5 g/dL (32.0-36.0) 04/23/19 04:59 RDW 15.1 % (11.5-14.0) H 04/23/19 04:59 Plt Count 115 10^3/uL (150-450) L 04/23/19 04:59 Lymph % (Auto) 26.9 % (13-45) 04/18/19 12:54 [place] % (Auto) 3.3 % (3-13) 04/18/19 12:54 Eos % (Auto) 2.8 % (0-6) 04/18/19 12:54 Baso % (Auto) 1.0 % (0-2) 04/18/19 12:54 Absolute Neuts (auto) 2.6 10^3/uL (1.7-8.2) 04/18/19 12:54 Absolute Lymphs (auto) 1.1 10^3/uL (0.5-4.7) 04/18/19 12:54 Absolute Monos (auto) 0.1 10^3/uL (0.1-1.4) 04/18/19 12:54 Absolute Eos (auto) 0.1 10^3/uL (0.0-0.6) 04/18/19 12:54 Absolute Basos (auto) 0.0 10^3/uL (0.0-0.2) 04/18/19 12:54 Seg Neutrophils % 66.0 % (42-78) 04/18/19 12:54 PT 14.6 SEC (11.4-15.4) 04/23/19 09:11 INR 1.13 04/23/19 09:11 APTT 28.2 SEC (23.5-35.8) 04/23/19 09:11 Sodium 136.6 mmol/L (137-145) L 04/23/19 04:59 Potassium 3.8 mmol/L (3.6-5.0) 04/23/19 04:59 Chloride 99 mmol/L (98-107) 04/23/19 04:59 Carbon Dioxide 28 mmol/L (22-30) 04/23/19 04:59 Anion Gap 10 (5-19) 04/23/19 04:59 BUN 65 mg/dL (7-20) H 04/23/19 04:59 Creatinine 3.91 mg/dL (0.52-1.25) H 04/23/19 04:59 Est GFR ( Amer) 13 (>60) L 04/23/19 04:59 Est GFR (MDRD) Non-Af 11 (>60) L 04/23/19 04:59 Glucose 87 mg/dL (75-110) 04/23/19 04:59 Lactic Acid (Sepsis) 1.0 mmol/L (0.7-2.1) 04/18/19 12:54 Calcium 8.8 mg/dL (8.4-10.2) 04/23/19 04:59 Phosphorus 5.5 mg/dL (2.5-4.5) H 04/20/19 05:34 Magnesium 1.9 mg/dL (1.6-2.3) 04/22/19 05:30 Total Bilirubin 0.8 mg/dL (0.2-1.3) 04/19/19 07:02 Direct Bilirubin 0.2 mg/dL (0.0-0.4) 04/19/19 07:02 Neonat Total Bilirubin Not Reportable 04/19/19 07:02 Neonat Direct Bilirubin Not Reportable 04/19/19 07:02 Neonat Indirect Bili Not Reportable 04/19/19 07:02 AST 29 U/L (14-36) 04/19/19 07:02 ALT 14 U/L (<35) 04/19/19 07:02 Alkaline Phosphatase 82 U/L (38-126) 04/19/19 07:02 Creatine Kinase 39 U/L (30-135) 04/19/19 07:02 CK-MB (CK-2) 1.65 ng/mL (<4.55) 04/19/19 07:02 Troponin I 0.282 ng/mL 04/19/19 07:02 NT-Pro-B Natriuret Pep 99232 pg/mL (<450) H 04/19/19 07:02 Total Protein 6.2 g/dL (6.3-8.2) L 04/19/19 07:02 Albumin 3.3 g/dL (3.5-5.0) L 04/19/19 07:02 PTH Intact 21.1 pg/mL (10.0-65.0) 04/20/19 05:34 Influenza A (Rapid) NEGATIVE (NEGATIVE) 04/18/19 12:54 Influenza B (Rapid) NEGATIVE (NEGATIVE) 04/18/19 12:54 04/18/19 04/18/19 04/18/19 12:54 12:54 16:09 CK-MB (CK-2) Troponin I 0.205 0.199 NT-Pro-B Natriuret Pep 98299 H 04/18/19 04/19/19 04/19/19 18:47 00:43 07:02 CK-MB (CK-2) 1.90 1.33 1.65 Troponin I 0.233 0.239 0.282 NT-Pro-B Natriuret Pep 08870 H Impressions: Chest X-Ray 04/18/19 11:43 IMPRESSION: Cardiomegaly. Minimal vascular congestion and trace pleural fluid. Chest CT 04/18/19 17:44 IMPRESSION: Moderate bilateral pleural effusions. Mild basilar subsegmental atelectasis. Similar chronic interstitial changes in the right upper lobe. Mild interlobular septal thickening which is new compared with the prior exam. No pneumothorax. No pulmonary masses. Chest X-Ray 04/19/19 00:00 IMPRESSION: STABLE APPEARANCE. NO SIGNIFICANT CHANGE. Abdomen/Pelvis CT 04/22/19 00:00 IMPRESSION: 1. Interval reduction in volume of a previously seen effusions, now small. 2. Unchanged fibrotic opacity of the right upper lobe, in keeping with prior radiation therapy. No acute appearing airspace opacity. 3. New, moderate bilateral hydronephrosis and proximal hydroureter, of uncertain etiology. There is ill-defined soft tissue in the vicinity of the iliac bifurcation (series 3, image 58), which appears somewhat increased compared to prior examination dated 02/23/2019, difficult to evaluate due to lack of intravenous contrast. Lymphadenopathy or malignant soft tissue is not excluded. Recommend contrast-enhanced CT with urographic delayed phase to further evaluate. 4. Postoperative findings of prior right mastectomy. 5. Chronic incidental findings including coronary artery disease and aortic atherosclerosis as detailed above. Chest CT 04/22/19 00:00 IMPRESSION: 1. Interval reduction in volume of a previously seen effusions, now small. 2. Unchanged fibrotic opacity of the right upper lobe, in keeping with prior radiation therapy. No acute appearing airspace opacity. 3. New, moderate bilateral hydronephrosis and proximal hydroureter, of uncertain etiology. There is ill-defined soft tissue in the vicinity of the iliac bifurcation (series 3, image 58), which appears somewhat increased compared to prior examination dated 02/23/2019, difficult to evaluate due to lack of intravenous contrast. Lymphadenopathy or malignant soft tissue is not excluded. Recommend contrast-enhanced CT with urographic delayed phase to further evaluate. 4. Postoperative findings of prior right mastectomy. 5. Chronic incidental findings including coronary artery disease and aortic atherosclerosis as detailed above. Chest X-Ray 04/22/19 00:00 IMPRESSION: No acute findings Guidance Fluoroscopy 04/23/19 00:00 IMPRESSION: Successful placement of bilateral 8 [place] nephrostomy catheters utilizing fluoroscopic and sonographic guidance. The catheters were attached to drainage bags and should be exchange in 6 to 8 weeks. Guidance Fluoroscopy 04/23/19 00:00 IMPRESSION: Successful placement of bilateral 8 [place] nephrostomy catheters utilizing fluoroscopic and sonographic guidance. The catheters were attached to drainage bags and should be exchange in 6 to 8 weeks. Guidance Ultrasound 04/23/19 00:00 IMPRESSION: Successful placement of bilateral 8 [place] nephrostomy catheters utilizing fluoroscopic and sonographic guidance. The catheters were attached to drainage bags and should be exchange in 6 to 8 weeks. Guidance Ultrasound 04/23/19 00:00 IMPRESSION: Successful placement of bilateral 8 [place] nephrostomy catheters utilizing fluoroscopic and sonographic guidance. The catheters were attached to drainage bags and should be exchange in 6 to 8 weeks. Nephrostomy Tube Placement 04/23/19 00:00 IMPRESSION: Successful placement of bilateral 8 [place] nephrostomy catheters utilizing fluoroscopic and sonographic guidance. The catheters were attached to drainage bags and should be exchange in 6 to 8 weeks. Nephrostomy Tube Placement 04/23/19 00:00 IMPRESSION: Successful placement of bilateral 8 [place] nephrostomy catheters utilizing fluoroscopic and sonographic guidance. The catheters were attached to drainage bags and should be exchange in 6 to 8 weeks. Plan Time Spent: Greater than 30 Minutes Stroke Is this a Stroke Patient?: No Acute Heart Failure - Is this a Heart Failure Patient?: No
== END 2019-04-24 11:34 | disposition hospice, home (50) | DRG 659 ==
LOC: ER 11:16 → EH 17:12 → 3W 22:08
PROVIDERS: ADMIT Family Medicine; ATTEND Family Medicine
PROC: 0T143JD Bypass Left Kidney Pelvis to Cutaneous with Synthetic Substitute, Percutaneous Approach (ICD-10-PCS; principal; 2019-04-23)
PROC: 0T133JD Bypass Right Kidney Pelvis to Cutaneous with Synthetic Substitute, Percutaneous Approach (ICD-10-PCS; 2019-04-23)
DX: N17.9 Acute kidney failure, unspecified (principal); I50.23 Acute on chronic systolic (congestive) heart failure; I21.4 Non-ST elevation (NSTEMI) myocardial infarction; I13.0 Hypertensive heart and chronic kidney disease with heart failure and stage 1 through stage 4 chronic kidney disease, or unspecified chronic kidney disease; C79.51 Secondary malignant neoplasm of bone; I42.0 Dilated cardiomyopathy; D63.1 Anemia in chronic kidney disease; C50.411 Malignant neoplasm of upper-outer quadrant of right female breast; E10.22 Type 1 diabetes mellitus with diabetic chronic kidney disease; N18.3 Chronic kidney disease, stage 3 (moderate); Z66 Do not resuscitate; I25.10 Atherosclerotic heart disease of native coronary artery without angina pectoris; E78.5 Hyperlipidemia, unspecified; K21.9 Gastro-esophageal reflux disease without esophagitis; M10.9 Gout, unspecified; F32.9 Major depressive disorder, single episode, unspecified; G89.3 Neoplasm related pain (acute) (chronic); E87.6 Hypokalemia; K59.00 Constipation, unspecified; N13.30 Unspecified hydronephrosis; Z79.82 Long term (current) use of aspirin; Z95.810 Presence of automatic (implantable) cardiac defibrillator; Z87.891 Personal history of nicotine dependence; Z79.899 Other long term (current) drug therapy; Z92.3 Personal history of irradiation; Z17.0 Estrogen receptor positive status [ER+]; Z86.73 Personal history of transient ischemic attack (TIA), and cerebral infarction without residual deficits
CPT/HCPCS: 36415; 50432; 71045; 71046; 71250; 74176; 76937; 77002; 80048; 80053; 82550; 82553; 83605; 83735; 83880; 83970; 84100; 84484; 85025; 85027; 85610; 85730; 87040; 87086; 87804; 93005; 93010; 93306; 94640; 99285; C1729; C1769; C1887; C1894; J0690; J1644; J1940; J2250; J3010; J3490; J7620; Q9967; S0119